=== PATIENT | female | born 1965 | race Caucasian/White ===

== ENCOUNTER 2019-09-01 11:24 | Emergency (ER) | payer MEDICAID, SELFPAY ==
[2019-09-01 11:25] VITALS: BP 142/69; PULSE 92; RESP 17; TEMP 36.7; O2SAT 97; BMI 36.0
--- NOTE | 2019-09-01 11:56 | ED.VISSUMM ---
- ER Visit Summary Date of Service: 09/01/19 Chief Complaint: Back pain History of Present Illness: The patient is a 53 F who just moved here from [place]. She reports that one week ago she was playing with her grandkids and that developed low back pain. She describes it as a sharp pain is 10 out of 10 severity. Is worsened by movement. Is relieved by heating pad and Tylenol. She states it radiates down the side of her left leg to her foot. She denies any numbness, tingling, or weakness. No problems with her bowels or bladder. No groin numbness. She denies any trauma where she may have broken anything. No fall or MVA. Patient reports that she burned her right breast 6 days ago. She reports that she has been using Neosporin and a dressing to this. She denies any pain to this. Physical Examination: Vitals: Stable. Afebrile. General: A&O x 3. NAD. Cardiovascular exam: Regular rate and rhythm, no murmur, rub or gallop. Respiratory exam: Clear to auscultation bilaterally. No wheezes or stridor. Abdominal exam: Soft, nontender, nondistended, normal bowel sounds. No peritoneal signs. Back: Diffuse moderate tenderness to palpation over the lumbar spine and the paraspinous musculature in the lumbar region. No point tenderness. Negative straight leg bilaterally. 5/5 DF, PF, EHL bilaterally. Normal sensation to light touch throughout. Extremity: No clubbing, cyanosis, or edema. Emergency Department Course and Treatment: An OARRS report was obtained which was negative. She was given Hutchinson here. Treatment Plan: Patient be discharged prescription for 10 Hutchinson. She is instructed on symptomatic care. Follow-up with Dr. Guillermo in 1 week for another exam. Return to the emergency department for any worsening symptoms. Disposition: To home in improved and stable condition. Impression: 1 1. Low back pain. 2. Ulcer right breast. This note was generated with [employer] dictation software. It may contain incorrect words, spelling, and punctuation that were not noted in review of the chart prior to signing ED Disposition - Plan for ED Patient: Disposition: Home or Assisted Living Instructions: BACK PAIN (Acute or Chronic) Prescriptions: Hydrocodone Bitart/Apap 5-325 [Hutchinson 5MG-325MG] 1 tab PO Q4H PRN PRN 2 Days #10 tab PRN Reason: Pain Prescription Printed Referrals: Dhara Guillermo MD [STAFF PHYSICIAN] - 1 Week if not improving
[2019-09-01] MEDS: HYDROcodone Bitartrate/Apap 5/325 Tablet PO (12:22)
[2019-09-01 12:26] VITALS: BP 118/67; PULSE 82; RESP 16; O2SAT 97
== END 2019-09-01 12:27 | disposition home or self-care (01) ==
LOC: ED 12:13
PROVIDERS: Emergency Provider Emergency Medicine
DX: M54.5 Low back pain (principal); N61.1 Abscess of the breast and nipple; T21.01XA Burn of unspecified degree of chest wall, initial encounter; X08.8XXA Exposure to other specified smoke, fire and flames, initial encounter; Y93.9 Activity, unspecified; Y92.9 Unspecified place or not applicable; J44.9 Chronic obstructive pulmonary disease, unspecified; E11.40 Type 2 diabetes mellitus with diabetic neuropathy, unspecified; Z79.84 Long term (current) use of oral hypoglycemic drugs; F17.200 Nicotine dependence, unspecified, uncomplicated
CPT/HCPCS: 99283

== ENCOUNTER 2019-09-24 23:18 | Emergency (ER) | payer MEDICAID, SELFPAY ==
[2019-09-24 23:19] VITALS: BP 90/60; PULSE 105; RESP 18; TEMP 37; O2SAT 94; BMI 30.9
[2019-09-25 00:06] VITALS: BP 130/108; PULSE 122; RESP 20; O2SAT 95
--- NOTE | 2019-09-25 00:13 | RAD_ITS ---
HISTORY: CONFUSION, FALLS, C/O PAIN ENTIRE BODY ADDITIONAL HISTORY: None provided. TECHNIQUE: Frontal chest radiograph. Number of images including paperwork: 1 COMPARISON: None FINDINGS: LUNGS AND PLEURA: Bibasilar airspace opacities, slightly greater on the right than the left with some linear appearance on the left. CARDIAC SILHOUETTE: Upper normal size. MEDIASTINUM AND RUBINA: Aortic calcification. UPPER ABDOMEN: Unremarkable. SKELETON AND SOFT TISSUES: No acute findings. Degenerative changes. OTHER DEVICES AND HARDWARE: None. RAD/Chest 1 View IMPRESSION: Bibasilar atelectasis versus infiltrates. at 0040 Reported and signed by: Sandra Koenig MD Electronically Signed: Sandra Koenig MD at 0:40 EST Tel , Service support ,
--- NOTE | 2019-09-25 00:13 | CT_ITS ---
HISTORY: CONFUSION, PAIN ALL OVER, FREQUENT FALLS TODAY, HX BRAIN TUMOR WITH SX IN THE PAST ADDITIONAL HISTORY: None provided. COMPARISON: None TECHNIQUE: Axial, coronal and sagittal CT images were obtained of the brain without intravenous contrast. Number of images including paperwork: 255. A radiation dose optimization technique was used for this scan. FINDINGS: BRAIN PARENCHYMA: No acute hemorrhage or mass. No definite acute infarct; MRI more sensitive. EXTRA-AXIAL SPACES: No acute hemorrhage. VENTRICULAR SYSTEM: No hydrocephalus. PARANASAL SINUSES AND MASTOIDS: No air-fluid level in the imaged extent. ORBITS: Unremarkable imaged extent. SKELETON AND SOFT TISSUES: Remote craniotomy changes near the vertex. ASPECTS score: Not applicable. CT/Brain/Head without Contrast IMPRESSION: No acute intracranial abnormality. Individualized dose optimization techniques were used for this CT. at 0053 Reported and signed by: Sandra Koenig MD Electronically Signed: Sandra Koenig MD at 0:53 EST Tel , Service support ,
--- NOTE | 2019-09-25 00:13 | EKG12_ITS ---
Test Reason : DYSRYTHMIA Blood Pressure : / mmHG Vent. Rate : 098 BPM Atrial Rate : 098 BPM P-R Int : 152 ms QRS Dur : 066 ms QT Int : 382 ms P-R-T Axes : 023 -12 044 degrees QTc Int : 487 ms Normal sinus rhythm Normal ECG Confirmed by TERI MAZA, ANNALEE ([id number]), editorial manager MEREDITH VALENCIA ([id number]) on 09/26/2019 9:48:50 AM Referred By: Breanne Mayberry Confirmed By:ANNALEE WILLIAMSON MD
[2019-09-25 00:31] LABS: Bedside Glucose 157 mg/dL (70-110)
[2019-09-25 00:32] LABS: Absolute Lymphocyte Count 2.62 X10^3/uL (0.83-4.51); Absolute Neutrophil Count 8.7 X10^3/uL (2.0-7.7); Basophil# 0.06 X10^3/uL; Basophil% 0.5 % (0-1); Eosinophil# 0.04 X10^3/uL; Eosinophils% 0.3 % (0-5); Hematocrit 39.7 % (37-47); Hemoglobin 13.9 g/dL (12.0-15.0); Lymphocyte # 2.62 X10^3/ul (4.0); Mean Corpuscular Hgb 32.3 pg (27.0-32.0); Mean Corpuscular Volume 92.1 fL (81-99); Mean Platelet Vol. 10.7 fl (6.2-12.0); Monocyte# 1.02 X10^3/uL; Monocyte% 8.2 % (0-10); NRBC Flagged by Analyzer 0 % (0-5); Neutrophil # 8.67 X10^3/uL (2.7-7.7); Neutrophil % 69.3 % (47-70); Platelet Count 157 K/mm3 (150-450); RBC Distribution Width CV 12.8 % (11.6-14.6); RBC Distribution Width SD 43.5 fl (35.1-43.9); Red Blood Count 4.31 M/mm3 (4.2-5.4); White Blood Count 12.5 K/mm3 (4.4-11.0)
[2019-09-25 00:35] LABS: International Normalized Ratio 1.2; Prothrombin Time (Protime)PT. 15.4 SECONDS (11.7-14.9)
--- NOTE | 2019-09-25 00:35 | ED.RN ---
took 50 of seroquel and 50 of benadryl at approx 2100
[2019-09-25 00:36] LABS: Partial Thromboplast Time 37.7 Seconds (24.1-36.2)
--- NOTE | 2019-09-25 00:37 | ED.VIS.GEN ---
History of Present Illness Chief Complaint: Other, Pain/Inj Informant: Patient Narrative: Stated over the last 2 days she has had diffuse body pain. She has been having cramping in her feet. Sometimes she gets that and takes gabapentin for. She denies any respiratory symptoms. She stated her whole body feels sore. She stated that her legs cramped up tonight. She had 3 falls. She did not get injured. No sick contacts. No respiratory symptoms. No home treatment. Denies hitting her head. Past Medical History - Allergies and Home Meds Allergies/Adverse Reactions: Allergies No Known Allergies Allergy (Verified 09/24/19 23:19) Primary Care Physician: Michael Camargo [Primary Care Provider] - Prior records reviewed: Yes Past Medical History: - - Reviewed Surgical History: noncontributory Lives: With Family Smoking Status: Current every day smoker Alcohol: None Drugs: None Review of Systems General: Denies: Chills, Fever, Sweats Eyes: Denies: Visual changes - bilaterally, Diplopia ENT: Denies: Rhinorrhea, Sore throat Cardiovascular: Denies: Chest pain, Palpitations Respiratory: Denies: Dyspnea, Cough, Dyspnea on exertion Gastrointestinal: Denies: Abdominal pain, Nausea, Vomiting, Diarrhea, Melena, Hematochezia Genitourinary: Denies: Dysuria, Hematuria, Frequency Musculoskeletal: Reports: Myalgias. Denies: Back pain, Extremity Pain Skin: Denies: Rash, Wounds Neurological: Denies: Headache, Weakness, Numbness Physical Exam Vital Signs/Narrative: Vital Signs Temp Pulse Resp BP Pulse Ox 09/25/19 00:06 122 H 20 H 130/108 H 95 09/24/19 23:19 98.6 F 105 H 18 90/60 94 General: Well nourished, Well developed, No Acute Distress Head: Normocephalic, Atraumatic Eyes: Perrl, EOMI ENT: Moist mucous membranes, No rhinorrhea Neck: Supple, Nontender Cardiovascular: Regular rate, Regular rhythm, No murmurs Respiratory: No distress, CTA bilaterally, Chest nontender Abdomen: Soft, Nontender, Nondistended, Normal bowel sounds Back: Nontender, Normal Inspection Extremities: No edema, Tenderness - Diffuse body tenderness with mild cramping to her bilateral feet. Negative for: Nontender Skin: Normal color, No rash Neurological: Alert, Oriented x3, Cranial nerves II-XII grossly intact, Normal Strength, Normal Sensation Psychological: Normal affect, Normal Mood Diagnostic/Tx/Re-eval - Medical Decision Making She given IV fluids and morphine for her symptoms. Lab work and CT head obtained.. Chest x-ray shows bibasilar atelectasis. CT head negative. Lab work shows a slight leukocytosis without left shift. Patient has slight bump in her creatinine which I suspect is from dehydration. Patient felt much better after treatment. Pain is resolved. Ambulate to the bathroom without problem. Urine shows a contaminated specimen without infection. 0 bacteria noted. Patient felt much better at this time I feel she can be discharged home. I do not feel she needs antibiotics. Will be discharged with ibuprofen. ED Disposition - Plan for ED Patient: Disposition: Home or Assisted Living Diagnosis: Myalgia Instructions: BACK PAIN (Acute or Chronic) Prescriptions: Ibuprofen 600 mg PO TID #30 tab Prescription Printed Referrals: Michael Camargo [Primary Care Provider] -
[2019-09-25 00:38] VITALS: BP 143/76; PULSE 87; RESP 17; O2SAT 99
[2019-09-25 00:42] LABS: Anion Gap 8 (5-15); BUN 12 mg/dL (7-18); BUN/Creat Ratio 8.3 RATIO (10-20); Calcium,Total 8.9 mg/dL (8.5-10.1); Chloride 108 mmol/L (98-107); Creatinine, Serum 1.45 mg/dL (0.55-1.02); EST Glomerular Filtration Rate 40 mL/min (>60); Est Glom Filt Rate - Afr Amer 49 mL/min (>60); Estimated Creatinine Clearance 39.64 ml/min; Glucose 172 mg/dL (74-106); Potassium 3.4 mmol/L (3.5-5.1); Sodium Level 139 mmol/L (136-145)
--- NOTE | 2019-09-25 00:42 | ED.RN ---
NO OLD EKG
[2019-09-25 00:57] LABS: Lactic Acid 1.9 mmol/L (0.4-1.9)
[2019-09-25 01:01] VITALS: BP 136/99; PULSE 101; RESP 15; O2SAT 95
[2019-09-25] MEDS: 0.9% Normal Saline 1,000 ML 50 ML IV (01:01)
[2019-09-25] MEDS: Morphine 4 MG/ML Syringe IV (01:01)
[2019-09-25 01:14] LABS: Alcohol, Blood (Medical)-Serum < 3.0 mg/dL
[2019-09-25 01:32] VITALS: BP 143/99; PULSE 97; RESP 12; O2SAT 97
[2019-09-25 01:55] LABS: Bacteria 0 SEEN /hpf (None Seen)
[2019-09-25 01:56] LABS: Color, Urine Amber (Yellow); Glucose, Dipstick Normal (Normal); Ketone-Dipstick 5 mg/dl (Negative); Leukocyte Esterase-Dipstick 100 /ul (Negative); Nitrite-Dipstick Negative (Negative); Occult Blood-Urine 25 /ul (Negative); Protein-Dipstick 100 mg/dl (Negative); Specific Gravity, Urine 1.015 (1.002-1.030); Urine Clarity Sl. Cloudy (Clear); Urine Urobilinogen 8 mg/dl (Normal)
[2019-09-25 01:57] LABS: Urine Bilirubin Dipstick 3 mg/dL (Negative)
[2019-09-25 02:04] LABS: Hyaline Cast 25-50 SEEN /lpf (0-5); Mucous, Urine 2+ /hpf (<or=2+); Red Blood Cells-Urine 5-10 SEEN /hpf (0-5); Squamous Epithelial Cells - UA 25-50 SEEN /hpf (5-10); White Blood Cells 10-25 SEEN /hpf (0-5)
[2019-09-25 02:11] VITALS: RESP 17
[2019-09-25 02:26] VITALS: BP 96/61; PULSE 61; RESP 17; O2SAT 96
== END 2019-09-25 02:27 | disposition home or self-care (01) ==
PROVIDERS: Emergency Provider Emergency Medicine
DX: M79.10 Myalgia, unspecified site (principal); R25.2 Cramp and spasm; R29.6 Repeated falls; F17.200 Nicotine dependence, unspecified, uncomplicated; Z79.899 Other long term (current) drug therapy
CPT/HCPCS: 70450; 71045; 80048; 80320; 81001; 82962; 83605; 84484; 85025; 85610; 85730; 93005; 99285; J7030; A4216; G0480

== ENCOUNTER 2019-09-25 16:28 | Inpatient (IN) | payer MEDICAID, SELFPAY ==
[2019-09-24 23:19] VITALS: BMI 30.9
[2019-09-25 16:29] VITALS: BP 104/79; PULSE 113; RESP 20; TEMP 38.6; O2SAT 95; BMI 37.1
--- NOTE | 2019-09-25 16:42 | CT_ITS ---
STUDY: CT BRAIN WITHOUT CONTRAST REASON FOR EXAM: Female, 53 years old. FALL, and quot; PAIN ALL OVER and quot; PER PT, SEEN IN ER EARLIER TODAY AND CT BRAIN RADIATION DOSAGE (If Supplied By Facility): CTDIvol = ( 44.99 ) mGy, DLP = ( 829.85 ) mGycm TECHNIQUE: Transaxial CT imaging of the brain was performed without administration of intravenous contrast material. Individualized dose optimization techniques were used for this CT. COMPARISON: No relevant priors. FINDINGS: Normal soft tissue structures. Normal calvarium. Normal size ventricles and extra-axial spaces for the patient''s age. Normal white matter tracts of the cerebral hemispheres. Normal basal ganglia and thalami. Normal brainstem. Normal cerebellum. There is no intracranial hemorrhage. There are no findings of an acute ischemic infarction. Normal visualized paranasal sinuses. CT/Brain/Head without Contrast IMPRESSION: No acute intracranial abnormalities Electronically Signed: Roderick Holt MD at 18:05 EST , Service support ,
--- NOTE | 2019-09-25 16:43 | RAD_ITS ---
STUDY: X-RAY CHEST REASON FOR EXAM: Female, 53 years old. FALL, FEVER TECHNIQUE: PA and lateral views of the chest. COMPARISON: Earlier today FINDINGS: EKG leads overlie the chest Lungs are expanded. Left lung is clear. Right lung shows increased opacification the right lung base suggesting worsening infiltrate or atelectasis. There is no demonstrated pleural abnormality. Normal size heart. Normal mediastinum and chas. Normal visualized pulmonary arteries. There is atherosclerotic calcification of the aortic arch with tortuosity. Normal visualized thoracic spine. Normal visualized ribs, clavicles, and shoulders. There is no demonstrated abnormality of the visualized soft tissue structures of the upper abdomen. RAD/Chest PA and Lateral IMPRESSION: Increased opacification the right lung base since the previous study suggests worsening atelectasis or infiltrate. Follow-up recommended to assure resolution Electronically Signed: Roderick Holt MD at 18:07 EST , Service support ,
--- NOTE | 2019-09-25 16:44 | ED.DCSUM_ITS ---
- ER Visit Summary Date of Service: 09/25/19 Chief Complaint: Fall History of Present Illness: The patient is a 53 F patient states she fell again today. Patient states she has had 4 falls since yesterday. Patient states she was getting up to get some water when she fell. Patient states she was unable to get up after the fall and laid on her floor all day. Patient states she has pain everywhere. Patient describes it as sharp and stabbing. Patient states she also has spasms. Patient denies any paresthesias. Patient denies any loss of consciousness. Patient was seen here last night and received IV fluids and analgesics. Patient felt better and was able to ambulate prior to going home. Patient states she was diagnosed with a viral infection. Physical Examination: Vital signs are stable except for mild tachycardia of 113. Patient is febrile here with a temperature of 101.5. Oral mucosa is pink and moist. Neck is supple. Trachea is midline. There is no JVD. Heart was regular rate and rhythm. Lungs are somewhat diminished and equal bilaterally. Abdomen is soft. Bowel sounds are normal. There is no tenderness. Cranial nerves II through XII are grossly intact. There are no focal motor or sensory deficits noted. Test Results: PA and lateral chest x-ray shows opacification of the right lung base that is worse compared to previous x-ray. CT scan of the brain was obtained. There is no acute intracranial bleeding. CBC shows a white blood cell count of 12.6. Total bilirubin was slightly elevated at 1.6. Blood cultures were obtained. Lactate was ordered. Emergency Department Course and Treatment: Patient was given Tylenol here for her fever. Patient was given a dose of morphine for her pain. Patient was started on Levaquin. Case was discussed with Dr. Mayberry. She will admit the patient to her service. Patient and family understood and were agreeable with the plan. All questions were answered. Disposition: Admit to hospital Impression: 1. Pneumonia 2. Frequent falls 3. Sepsis This note was generated with [employer] software. It may contain incorrect words, spelling, and punctuation that were not noted in review of the chart prior to signing ED Disposition - Plan for ED Patient: Disposition: Acute Care [facility]
[2019-09-25 16:52] VITALS: BP 104/79; PULSE 102; RESP 22; O2SAT 96
[2019-09-25] MEDS: Acetaminophen 500 MG Tablet 1000 MG PO (17:01)
[2019-09-25] MEDS: 0.9% Normal Saline 1,000 ML 1000 ML IV (17:11)
[2019-09-25] MEDS: Morphine 4 MG/ML Syringe IV (17:12)
[2019-09-25 17:31] LABS: Absolute Lymphocyte Count 0.87 X10^3/uL (0.83-4.51); Absolute Neutrophil Count 10.7 X10^3/uL (2.0-7.7); Basophil# 0.04 X10^3/uL; Basophil% 0.3 % (0-1); Eosinophil# 0.01 X10^3/uL; Eosinophils% 0.1 % (0-5); Hemoglobin 12.6 g/dL (12.0-15.0); Lymphocyte # 0.87 X10^3/ul (4.0); Lymphocyte % 6.9 % (19-41); Mean Corp Hgb Conc 33.2 g/dL (32-36); Mean Corpuscular Volume 93.4 fL (81-99); Mean Platelet Vol. 10.7 fl (6.2-12.0); Monocyte# 0.96 X10^3/uL; Monocyte% 7.6 % (0-10); NRBC Flagged by Analyzer 0 % (0-5); Neutrophil # 10.68 X10^3/uL (2.7-7.7); Neutrophil % 84.5 % (47-70); Platelet Count 131 K/mm3 (150-450); RBC Distribution Width CV 12.9 % (11.6-14.6); RBC Distribution Width SD 44.4 fl (35.1-43.9); Red Blood Count 4.07 M/mm3 (4.2-5.4); White Blood Count 12.6 K/mm3 (4.4-11.0)
[2019-09-25 17:44] LABS: ALB/GLOB Ratio 1.1 RATIO (0.9-2.4); AST(SGOT) 28 U/L (15-37); Alanine Aminotransfer ALT/SGPT 17 U/L (13-56); Albumin, Serum 3.6 g/dL (3.2-5.0); Alkaline Phosphatase 74 U/L (45-117); Anion Gap 8 (5-15); BUN 14 mg/dL (7-18); BUN/Creat Ratio 14.4 RATIO (10-20); Calcium,Total 8.3 mg/dL (8.5-10.1); Chloride 111 mmol/L (98-107); Creatinine, Serum 0.97 mg/dL (0.55-1.02); EST Glomerular Filtration Rate 64 mL/min (>60); Est Glom Filt Rate - Afr Amer 77 mL/min (>60); Estimated Creatinine Clearance 59.25 ml/min; Globulin 3.4 g/dL (2.2-4.2); Glucose 122 mg/dL (74-106); Potassium 3.5 mmol/L (3.5-5.1); Sodium Level 141 mmol/L (136-145)
[2019-09-25 18:28] VITALS: BP 112/73; PULSE 77; RESP 16; O2SAT 100
[2019-09-25 18:41] LABS: Red Blood Cells-Urine 0 SEEN /hpf (0-5)
[2019-09-25] MEDS: levoFLOXacin IV 750 MG/150 ML BAG 100 MG IV (18:43)
[2019-09-25 18:45] VITALS: BP 129/75; PULSE 75; RESP 18; O2SAT 99
--- NOTE | 2019-09-25 18:51 | HP.PCM_ITS ---
Problem List (1) Sepsis Status: Acute Qualifiers: Sepsis type: sepsis due to unspecified organism Severe sepsis acute organ dysfunction type: unspecified Severe sepsis shock status: without septic shock (2) Pneumonia Status: Acute Qualifiers: Pneumonia type: due to unspecified organism Laterality: right Lung location: lower lobe of lung Qualified Code(s): J18.9 - Pneumonia, unspecified organism (3) Frequent falls Status: Acute (4) Tobacco use Status: Chronic (5) Anxiety and depression Status: Chronic (6) History of brain tumor Status: Chronic History of Present Illness Date of Admission: 09/25/19 Chief Complaint: Frequent falls, fatigue, dyspnea, cough, fever, N/V The patient is a 53 y/o F w/ PMHx: Tobacco use, ? 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 ED on 09/25/19 with history of progressively worsening fatigue, malaise, poor intake w ith nausea and emesis as well as ongoing productive cough of yellow/green sputum with occasional dyspnea, worse when she exerts herself with no specific fevers or chills but noted upon ED presentation with recent history of fall x2 over the last 24 hours initially presenting to the ED early in the morning however clinically improved following hydration and requested discharge to home who now returns again following recent fall with no loss of consciousness nor head trauma. Work-up in the ED included T101.5, heart rate 133, BP 104/79, respiratory rate 20, 95% on room air, CBC with WBC 12.6, hemo-12.6, platelet 131 with left shift, CMP with chloride 111, glucose 122, total bilirubin 1.6, analysis requested and pending upon evaluation of patient, planned ED physician to request culture x2 while in the ED as well as lactic acid, chest x-ray with increased opacification right lung base suggestive of possible infiltrate, CT head with no acute intracranial findings. In the ED patient administered normal saline, Levaquin, morphine, Tylenol. In the ED patient very tearful she does not want to be admitted secondary to need to take care of her dog and upcoming visit with her daughter who from description may be in rehab. Past Medical History Past Medical History (Chronic Problems): Chronic Problems Tobacco use (Chronic) Anxiety and depression (Chronic) History of brain tumor (Chronic) Allergies No Known Allergies Allergy (Verified 09/25/19 16:28) Home Medications: Ambulatory Orders Medication Instructions Recorded Gabapentin [Neurontin] 800 mg PO BID 09/01/19 Metformin HCl [Glucophage Xr] 500 mg PO DAILY 09/01/19 Quetiapine Fumarate [Seroquel] 50 mg PO QHS 09/01/19 Diphenhydramine HCl [Benadryl 25 mg PO DAILY PRN PRN 09/25/19 Allergy] Ibuprofen 600 mg PO TID #30 tab 09/25/19 Sumatriptan Succinate [Imitrex] 100 mg PO .X1 PRN 09/25/19 Venlafaxine HCl [Venlafaxine HCl 75 mg PO DAILY 09/25/19 ER] Surgical History: - - Brain surgery as noted x3, hysterectomy, bilateral carpal tunnel surgery, left upper extremity elbow surgery, tonsillectomy, umbilical hernia repair, cholecystectomy, appendectomy. 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 Notes she does not tolerate patches well secondary to skin irritability. Tobacco Use: Cigarettes Alcohol: None Drugs: None - *Family History Maternal History Items: - - Patient has a paternal family history of heart disease, CHF. Paternal History Items: - - Patient notes a paternal family history of diabetes, heart disease, coronary disease. Review of Systems Constitutional: Reports: Anorexia, Malaise, Weakness, Fatigue. Denies: Chills, Fever, Weight Change HEENT: Reports: Nasal Congestion, Sinus Congestion, Sinus Drainage, Sore Throat. Denies: Head Aches Cardiovascular: Denies: Chest Pain, Palpitations Respiratory: Reports: Cough, Shortness of Breath, Shortness of breath at rest, Shortness of breath upon exertion, Sputum production Gastrointestinal: Reports: Nausea, Vomiting. Denies: Abdominal Pain Genitourinary: Denies: Dysuria Musculoskeletal: Reports: Back Pain, Joint Pain. Denies: Joint Tenderness Skin: Denies: Rash, Wounds Neurological: Denies: Numbness, Tingling, Focal weakness Psychiatric: Reports: Anxiety, Depression. Denies: Homicidal Ideations, Suicidal Ideations Hematologic/ Lymphatic: Reports: Anemia. Denies: Easy Bruising, Easy Bleeding VTE Information - Inpt Only VTE Present on Admission: No VTE Mechan Device Prophylaxis: SCD's VTE Pharm Prophylaxis ordered?: Yes Patient Problems: Active and Suspected Problems Sepsis (Acute) Pneumonia (Acute) Frequent falls (Acute) Subjective: Seated upright in the ED bed, fatigued appearance, hoarse voice, occasional coughing during examination. Objective: Physical Examination: General: awake, alert, oriented x 3 and cooperative, seated upright in the ED bed, slow speech which is chronic she notes, fatigued and ill-appearing, very hoarse voice. Skin: normal color, turgor, no icterus, cyanosis. HEENT: AT/NC, EOMI, PERRLA, dry MM, posterior OP erythema, no exudate, no carotid bruits or JVD noted. Lungs: Diminished breath sounds throughout, greater bilateral bases, right greater than left, mildly rhonchorous right base and right midlung region posteriorly, no rales or wheezing, mildly decreased effort. Heart: Improved, less tachycardic with regular rhythm; no gallop, rub audible. Abdomen: soft, BS, NTTP, ND, normal BS, no HSM. Extremities: no cyanosis, clubbing, or edema. Neurological: patient awake, alert, oriented x 3; cognitive function intact; pupils equally reactive to light and accomodation; cranial nerves II-XII grossly normal, moving all 4 extremities, no focal deficits, strength severely globally [place] secondary to acute presentation. Psychiatric: affect appears fatigued, tearful during discussions as she did not want to necessarily be admitted but willing to stay, no acute evidence of anxiety feelings. - Physical Exam Vitals/I&O's: Vital Signs Temp Pulse Resp BP Pulse Ox 101.5 F H 75 18 129/75 H 99 09/25/19 16:29 09/25/19 18:45 09/25/19 18:45 09/25/19 18:45 09/25/19 18:45 Oxygen Delivery Method Room Air Weight: 216 lb 4.375 oz Body Mass Index (BMI) 37.1 Finger Stick Blood Glucose 157 Intake and Output for Last 24 Hours 09/23/19 09/24/19 09/25/19 23:59 23:59 23:59 Intake Total 1000 / 1000 Balance 1000 / 1000 Laboratory Results 09/25/19 17:20: WBC 12.6 H, RBC 4.07 L, Hgb 12.6, Hct 38.0, MCV 93.4, MCH 31.0, MCHC 33.2, RDW Std Deviation 44.4 H, RDW Coeff of [place] 12.9, Plt Count 131 L, MPV 10.7, Immature Gran % (Auto) 0.600, Neut % (Auto) 84.5 H, Lymph % (Auto) 6.9 L, [place] % (Auto) 7.6, Eos % (Auto) 0.1, Baso % (Auto) 0.3, Absolute Neuts (auto) 10.7 H, Absolute Lymphs (auto) 0.87, Nucleated RBC % 0 09/25/19 17:20: Sodium 141, Potassium 3.5, Chloride 111 H, Carbon Dioxide 22.0, Anion Gap 8, BUN 14, Creatinine 0.97, Estim Creat Clear Calc 59.25, Est GFR (MDRD) Af Amer 77, Est GFR (MDRD) Non-Af 64, BUN/Creatinine Ratio 14.4, Glucose 122 H, Calcium 8.3 L, Total Bilirubin 1.60 H, AST 28, ALT 17, Alkaline Phosphatase 74, Total Protein 7.0, Albumin 3.6, Globulin 3.4, Albumin/Globulin Ratio 1.1 09/25/19 18:35: Urine Color Pending, Urine Clarity Pending, Urine pH Pending, Ur Specific [place] Pending, Urine Protein Pending, Urine Glucose (UA) Pending, Urine Ketones Pending, Urine Occult Blood Pending, Urine Nitrite Pending, Urine Bilirubin Pending, Urine Urobilinogen Pending, Ur Leukocyte Esterase Pending, Urine RBC Pending, Urine WBC Pending, Ur Squamous Epith Cells Pending, Urine Bacteria Pending, Urine Mucus Pending Current Medications Levofloxacin (Levaquin Iv) 750 mg in 150 mls @ 100 mls/hr IV X1 ONE Stop: 09/25/19 20:00 Last Admin: 09/25/19 18:43 Dose: 100 mls/hr Documented by: Assessment/Plan All Active Problems Myalgia (Acute) Sepsis (Acute) Pneumonia (Acute) Frequent falls (Acute) The patient is a 53 y/o F w/ PMHx: Tobacco use, ? 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 ED on 09/25/19 with history of progressively worsening fatigue, malaise, poor intake with nausea and emesis as well as ongoing productive cough of yellow/green sputum with occasional dyspnea, worse when she exerts herself with no specific fevers or chills but noted upon ED presentation with recent history of fall x2 over the last 24 hours. 1. Acute sepsis secondary to Community Acquired Pneumonia: Pending lactic acid and blood cultures upon requested evaluation of patient. Will admit to telemetry given stable vital signs, maintain on oxygen with wean as tolerated to room air, continue ATC duonebs, PRN albuterol, maintained on IV Rocephin and Azithromycin, HOB, IS parameters w/ pending sputum cultures, respiratory viral panel and urine antigens. Bld cx x 2 to be obtained in the ED. given history of frequent falls, fatigue, malaise despite age will request PT/OT/case management consultation for discharge planning. 2. Suspected Chronic COPD/Asthma: Patient needs chronic use intermittently of an inhaler, suspect albuterol, unclear if any past COPD or asthmatic history, ATC duonebs as noted above, PRN albuterol, HOB, IS parameters. 3. Diabetes mellitus type II: Hold oral home regimen, trial diet clears given nausea and emesis and advance diet as tolerated to ADA, in interim will maintain on every 6 hours accu checks w/ ISS. 4. Anxiety and depression: We will continue patient home Seroquel, venlafaxine regimen. 5. Chronic neuropathy unclear type: We will continue patient home Neurontin. 6. Obesity: Weight loss and lifestyle changes encouraged. 7. History of brain tumor unclear type: Status post resection x3 she notes, following this she has comprehensive issues and is slow of speech chronically. 8. Tobacco Abuse: Encouraged cessation, inpatient consultation per RT, NR if desired. 9. DVT prophylaxis: SCDs, Lovenox. Code Visit Inpatient E&M: 66401 Init Hosp L3
[2019-09-25 19:12] VITALS: BMI 37.1
[2019-09-25 19:30] LABS: Color, Urine Amber (Yellow); Glucose, Dipstick Normal (Normal); Ketone-Dipstick 50 mg/dl (Negative); Leukocyte Esterase-Dipstick 25 /ul (Negative); Nitrite-Dipstick Negative (Negative); Occult Blood-Urine 10 /ul (Negative); Protein-Dipstick 30 mg/dl (Negative); Specific Gravity, Urine 1.015 (1.002-1.030); Urine Clarity Sl. Cloudy (Clear); Urine Urobilinogen 4 mg/dl (Normal)
[2019-09-25 19:33] LABS: Urine Bilirubin Dipstick 1 mg/dL (Negative)
[2019-09-25 19:49] LABS: Lactic Acid 0.9 mmol/L (0.4-1.9)
[2019-09-25 19:54] LABS: Mucous, Urine 3+ /hpf (<or=2+)
[2019-09-25 19:55] VITALS: BMI 36.0
[2019-09-25 19:55] LABS: Bacteria 2+ /hpf (None Seen); Squamous Epithelial Cells - UA 0-5 SEEN /hpf (5-10); White Blood Cells 0-5 SEEN /hpf (0-5)
[2019-09-25 19:57] VITALS: BP 121/76; PULSE 91; RESP 20; TEMP 37.1; O2SAT 95
[2019-09-25 20:20] VITALS: O2SAT 99
[2019-09-25] MEDS: 0.9% Saline Lock 10 ML Syringe IV (20:50)
[2019-09-25] MEDS: 0.9% Normal Saline 1,000 ML 999 ML IV (20:53)
[2019-09-25] MEDS: Gabapentin 800 MG Tablet PO (21:03)
[2019-09-25] MEDS: Famotidine 20 MG Tablet PO (21:03)
[2019-09-25] MEDS: QUEtiapine 25 MG Tablet 50 MG PO (21:03)
[2019-09-25] MEDS: Ensure Clear 120 ML Liquid PO (22:14)
[2019-09-25] MEDS: Acetaminophen 325 MG Tablet 650 MG PO (22:22)
[2019-09-25 23:51] LABS: Bedside Glucose 75 mg/dL (70-110)
[2019-09-26] VITALS (11 sets, daily range): BP systolic 115–146; BP diastolic 66–77; PULSE 81–104; RESP 20–36; TEMP 36.2–38.9; O2SAT 91–96
[2019-09-26] MEDS: 0.9% Normal Saline 1,000 ML 125 ML IV ×3 (00:16→16:00)
[2019-09-26] MEDS: Ipratropium/Albuterol Sulfate 3 ML AMPUL.NEB INHALATION ×4 (07:02→18:53)
--- NOTE | 2019-09-26 07:27 | NURSING ---
cps increased o2 to 3l as pt was sating only 86% on 2l. at 3l pt 90-91% and rr 30. will monitor with vsa freq
[2019-09-26] MEDS: Acetaminophen 325 MG Tablet 650 MG PO (07:52)
[2019-09-26] MEDS: BENZOCAINE/MENTHOL 1 LOZENGE MUCOUS MEM (07:53)
[2019-09-26 08:06] LABS: Absolute Lymphocyte Count 1.71 X10^3/uL (0.83-4.51); Absolute Neutrophil Count 8.1 X10^3/uL (2.0-7.7); Basophil# 0.02 X10^3/uL; Basophil% 0.2 % (0-1); Eosinophil# 0.14 X10^3/uL; Eosinophils% 1.3 % (0-5); Hemoglobin 13.3 g/dL (12.0-15.0); Lymphocyte # 1.71 X10^3/ul (4.0); Mean Corp Hgb Conc 33.3 g/dL (32-36); Mean Corpuscular Hgb 31.6 pg (27.0-32.0); Mean Platelet Vol. 11.8 fl (6.2-12.0); Monocyte# 0.66 X10^3/uL; Monocyte% 6.2 % (0-10); NRBC Flagged by Analyzer 0 % (0-5); Neutrophil # 8.08 X10^3/uL (2.7-7.7); Neutrophil % 75.7 % (47-70); Platelet Count 112 K/mm3 (150-450); RBC Distribution Width CV 12.7 % (11.6-14.6); RBC Distribution Width SD 44.3 fl (35.1-43.9); Red Blood Count 4.21 M/mm3 (4.2-5.4); White Blood Count 10.7 K/mm3 (4.4-11.0)
[2019-09-26 08:52] LABS: ALB/GLOB Ratio 0.8 RATIO (0.9-2.4); AST(SGOT) 34 U/L (15-37); Alanine Aminotransfer ALT/SGPT 20 U/L (13-56); Albumin, Serum 3.3 g/dL (3.2-5.0); Alkaline Phosphatase 85 U/L (45-117); Anion Gap 6 (5-15); BUN 9 mg/dL (7-18); BUN/Creat Ratio 14.1 RATIO (10-20); Calcium,Total 8.2 mg/dL (8.5-10.1); Chloride 114 mmol/L (98-107); Creatinine, Serum 0.64 mg/dL (0.55-1.02); EST Glomerular Filtration Rate 104 mL/min (>60); Est Glom Filt Rate - Afr Amer 126 mL/min (>60); Globulin 3.9 g/dL (2.2-4.2); Glucose 81 mg/dL (74-106); Potassium 3.6 mmol/L (3.5-5.1); Protein, Total 7.2 g/dL (6.4-8.2); Sodium Level 143 mmol/L (136-145)
[2019-09-26] MEDS: Venlafaxine XR 75 MG Capsule PO (09:34)
[2019-09-26] MEDS: Enoxaparin 40 MG/0.4 ML Syringe SC (09:34)
[2019-09-26] MEDS: Famotidine 20 MG Tablet PO ×2 (09:34→21:14)
[2019-09-26] MEDS: Gabapentin 800 MG Tablet PO ×2 (09:34→21:15)
[2019-09-26] MEDS: Ensure Clear 120 ML Liquid PO ×2 (09:37→14:31)
[2019-09-26] MEDS: Morphine 2 MG/ML Syringe IV (09:52)
--- NOTE | 2019-09-26 12:25 | CASEMGMT ---
RN KEMAR GRAVEL WEIGHER CM to room to meet with patient for initial transition planning/care coordination assessment. RN KEMAR introduced self and role at [facility]. Pt voices understanding and consents to assessment at this time. Pt resting in bed in no distress at this time. Pt is A/O at this time and answers all questions appropriately. Care providers, pharmacy, and demographics verified/updated at this time. PCP: ZIAN Loomis, @ [facility] in [place]. Pt states wishes to get new PCP. Given list of local PCP's. Pt is agreeable to staying with current PCP and PA for now so they can follow her for HHC, until she can get established with new PCP. Preferred Pharmacy: [facility] Insurance: [employer] Prescription Benefit: Yes Living Will/HPOA: does not have LW or HCPOA . Interested in more information and would like to talk to GREGOR to complete paperwork. Made aware if SW is unable to see her prior to discharge, that she can make an appt as an out-pt with GREGOR. Given Aqu[employer] Coordinator Rac card with phone number to call for appt. Voices understanding. GREGOR Hernandez, made aware pt would like to complete AD paperwork. LNOK: 2 daughters: Annabella and Yoana. Father. Living Arrangements: Lives alone in an apt. States she is able to bath and dress herself but it has been becoming increasingly difficult since becoming ill. States difficulty with home mgmt tasks. States her daughter is starting to help her with doctor appts and home tasks. States her daughter just recently signed Transportation: Pt's father provides transportation. Denies transportation concerns. DME: [facility] has the following DME: rails/grab bars, hand held shower, medical alert. [facility] could use shower chair and walker. Given list of local DME companies for pt to select her preference. HHC/SNF: No hx of SNF. States history of HHC after brain surgery. States would like HHC when she returns home. Given list of HHC agencies for pt to select her preference. Pt wishes to return home with [facility] and [facility] has no concerns with going home at time of discharge. She states her daughter, Yoana, plans to come stay with her until she gets better/stronger. She states Yoana does not work and will be available to help her as long as needed. CM to follow for any additional discharge needs. Pt instructed to ask for CM if any additional needs arise. Pt voices understanding. PLAN: Home w/support of family and HHC. RN CM to obtain script for WW and shower chair. Svitlana ROMERO RN CM
--- NOTE | 2019-09-26 13:17 | CASEMGMT ---
Social Work: Met with patient in room to discuss advanced directives as patient voiced interest in completing AD forms. Patient states that she is not ready to complete forms because she has not decided yet who she will be appointing as her DPOAHC. This SW provided patient with AD documents and encouraged patient to contact [facility] [employer] to set up an appointment for advanced care planning once she decides who will be her DPOAHC. SW to continue to follow to assist as needed with Advance Care Planning as needed. ELVIRA Lo
--- NOTE | 2019-09-26 13:29 | CASEMGMT ---
Addendum entered by Natalia Cerna 09/26/19 16:21: 1420: Call placed to [facility]. They have received script for WW and shower chair. They state they will deliver DME to pt's room today. 1300: Call placed back to [facility] to request additional [facility] agencies in network. Per [place] quality audit representative, she recommended RN CM requesting out of plan referral's with out of network agencies. Calls placed back to [facility] and [facility] agencies. They are not agreeable to doing out-of-plan contracts. Call placed back to [facility], [facility]. No answer. 1540: Pt made aware unable to locate [facility] agency able to accept her at this time. Discussed option of OP therapy and pt agreeable to same. OP script obtained from Dr Friedman and given to pt. She was made aware she can take to any OP location of her choice. She voices understanding. [facility] has delivered WW to pt's room. Pt states [facility] staff asked her to call them re: setting up delivery of shower chair. Pt asked this RN CM to call [facility] to let them know either her father or her daughter will be at her home on so shower chair can be delivered. Call placed to [facility] and they were informed of same. Addendum entered by Natalia Cerna 09/26/19 13:45: Call placed to [facility]. They are in network with [place] [employer] [facility] but do not cover [facility] and are unable to accept pt. Original Note: RN CM NOTE: Calls placed to the following [facility] agencies and they are unable to take either d/t they are not in network with [place] [employer] or they do not have the staffing: [facility], [facility], [facility], [facility], [facility], [facility]. Call placed to [place] [facility] insurance co and spoke to a quality audit representative. 3 [facility] agencies that are in network and are in pt's location are as follows: [facility] [facility]: [phone]. Call placed to them and they stated they are unable to take pt. [facility]: [phone]-call placed to them and office is now closed. [facility]: [phone]--call placed to them and office is now closed. Svitlana HOODN RN CM
--- NOTE | 2019-09-26 14:18 | PN_ITS ---
Patient Problems: Active and Suspected Problems Sepsis (Acute) Pneumonia (Acute) Frequent falls (Acute) Reason for Visit: Pneumonia Subjective: Breathing better, but still short of breath. Vitals/I&O's: Vital Signs Temp Pulse Resp BP Pulse Ox 37.2 C 98 24 H 136/70 H 93 09/26/19 12:00 09/26/19 12:00 09/26/19 12:00 09/26/19 12:00 09/26/19 12:00 Oxygen Flow Rate (L/min) 3 Oxygen Delivery Method Nasal Cannula Weight: 95.3 kg Body Mass Index (BMI) 36.0 Finger Stick Blood Glucose 157 Intake and Output for Last 24 Hours 09/24/19 09/25/19 09/26/19 23:59 23:59 23:59 Intake Total 2468.5 / 2468.5 1935.58 / 1935.58 Output Total 300 / 300 1100 / 1100 Balance 2168.5 / 2168.5 835.58 / 835.58 General: Alert, - - diaphoretic HEENT: Atraumatic, Normocephalic Oral: Moist Mucosa, No Gingival or Mucosal Lesions/ Ulcerations Neck: No Nodes, Trachea Midline Lungs: Normal air movement, - - Bibasilar crackles. coarse breath sounds bilaterally. Cardiovascular: Regular rate, Regular Rhythm, Normal S1, Normal S2 Abdomen: Bowel Sounds Present, Soft, Non Tender, Non-Distended, No Hepato- splenomegaly Extremities: No edema, No Calf Tenderness Skin: No rashes, No breakdown Musculoskeletal: No Tenderness to Palpation of Joints or Extremities, No Muscle Wasting Neurological: Muscle tone normal, - - no clonus Psych/Mental Status: Normal Affect, Appropriate Microbiology Past 72 Hours 09/25/19 20:10 Mucosa - Nasopharyngeal Respiratory Panel (PCR) - Final 09/25/19 18:35 Urine, Clean Catch Streptococcus pneumoniae Antigen (M - Final 09/25/19 18:35 Urine, Clean Catch Legionella Antigen - Final Laboratory Results 09/25/19 17:20: WBC 12.6 H, RBC 4.07 L, Hgb 12.6, Hct 38.0, MCV 93.4, MCH 31.0, MCHC 33.2, RDW Std Deviation 44.4 H, RDW Coeff of [place] 12.9, Plt Count 131 L, MPV 10.7, Immature Gran % (Auto) 0.600, Neut % (Auto) 84.5 H, Lymph % (Auto) 6.9 L, [place] % (Auto) 7.6, Eos % (Auto) 0.1, Baso % (Auto) 0.3, Absolute Neuts (auto) 10.7 H, Absolute Lymphs (auto) 0.87, Nucleated RBC % 0 09/25/19 17:20: Sodium 141, Potassium 3.5, Chloride 111 H, Carbon Dioxide 22.0, Anion Gap 8, BUN 14, Creatinine 0.97, Estim Creat Clear Calc 59.25, Est GFR (MDRD) Af Amer 77, Est GFR (MDRD) Non-Af 64, BUN/Creatinine Ratio 14.4, Glucose 122 H, Calcium 8.3 L, Total Bilirubin 1.60 H, AST 28, ALT 17, Alkaline Phosphatase 74, Total Protein 7.0, Albumin 3.6, Globulin 3.4, Albumin/Globulin Ratio 1.1 09/25/19 17:20: Magnesium 2.0 09/25/19 18:35: Urine Color Vidya, Urine Clarity Sl. Cloudy, Urine pH 6.0, Ur Specific [place] 1.015, Urine Protein 30 H, Urine Glucose (UA) Normal, Urine Ketones 50 H, Urine Occult Blood 10 H, Urine Nitrite Negative, Urine Bilirubin 1 H, Urine Urobilinogen 4 H, Ur Leukocyte Esterase 25 H, Urine RBC 0 SEEN, Urine WBC 0-5 SEEN, Ur Squamous Epith Cells 0-5 SEEN, Urine Bacteria 2+, Urine Mucus 3+ 09/25/19 19:05: Lactic Acid 0.9 09/25/19 23:43: POC Glucose 75 09/26/19 06:59: WBC 10.7, RBC 4.21, Hgb 13.3, Hct 40.0, MCV 95.0, MCH 31.6, MCHC 33.3, RDW Std Deviation 44.3 H, RDW Coeff of [place] 12.7, Plt Count 112 L, MPV 11.8, Immature Gran % (Auto) 0.600, Neut % (Auto) 75.7 H, Lymph % (Auto) 16.0 L, [place] % (Auto) 6.2, Eos % (Auto) 1.3, Baso % (Auto) 0.2, Absolute Neuts (auto) 8.1 H, Absolute Lymphs (auto) 1.71, Nucleated RBC % 0 09/26/19 06:59: Sodium 143, Potassium 3.6, Chloride 114 H, Carbon Dioxide 23.0, Anion Gap 6, BUN 9, Creatinine 0.64, Estim Creat Clear Calc 89.80, Est GFR (MDRD) Af Amer 126, Est GFR (MDRD) Non-Af 104, BUN/Creatinine Ratio 14.1, Glucose 81, Calcium 8.2 L, Total Bilirubin 1.20 H, AST 34, ALT 20, Alkaline Phosphatase 85, Total Protein 7.2, Albumin 3.3, Globulin 3.9, Albumin/Globulin Ratio 0.8 L Current Medications Acetaminophen (Tylenol) 650 mg PO Q6H PRN PRN PRN Reason: Non-cardiac pain (4-10/10) Last Admin: 09/26/19 07:52 Dose: 650 mg Documented by: Hydrocodone Bitart/Acetaminophen ([place] 5mg-325mg) 1 - 2 tablet PO Q4H PRN PRN PRN Reason: Pain Score 4-10/10 Al Hydroxide/Mg Hydroxide (Mylanta Ii) 15 - 30 ml PO Q4H PRN PRN PRN Reason: INDIGESTION Albuterol Sulfate (Ventolin Aerosols) 2.5 mg INHALATION Q2H PRN PRN PRN Reason: dyspnea, wheezing Albuterol/Ipratropium (Duoneb) 3 ml INHALATION Q4HWA.RT [facility] Last Admin: 09/26/19 11:07 Dose: 3 ml Documented by: Dextrose (D50w Syringe) 0 gm IV X1 PRN; Protocol PRN Reason: Hypoglycemia Diphenhydramine HCl (Benadryl) 25 mg PO DAILY PRN PRN PRN Reason: ALLERGIES Enoxaparin Sodium (Lovenox) 40 mg SC DAILY [facility] Last Admin: 09/26/19 09:34 Dose: 40 mg Documented by: Famotidine (Pepcid) 20 mg PO BID [facility] Last Admin: 09/26/19 09:34 Dose: 20 mg Documented by: Gabapentin (Neurontin) 800 mg PO BID [facility] Last Admin: 09/26/19 09:34 Dose: 800 mg Documented by: Glucagon () 1 mg IM .X1 PRN PRN Reason: Hypoglycemia Guaifenesin (Robitussin) 20 ml PO Q4H PRN PRN PRN Reason: COUGH Hydralazine HCl (Apresoline Iv) 10 mg IV Q4H PRN PRN PRN Reason: SBP > 160 Sodium Chloride () 1,000 mls @ 125 mls/hr IV .Q8H [facility] Last Admin: 09/26/19 07:53 Dose: 125 mls/hr Documented by: Azithromycin 500 mg/ Dextrose 255 mls @ 250 mls/hr IV Q24@2200 [facility] Last Infusion: 09/25/19 22:14 Dose: Infused Documented by: Ceftriaxone Sodium 2 gm/ (Sodium Chloride) 50 mls @ 100 mls/hr IV Q24H [facility] Stop: 10/02/19 22:29 Last Infusion: 09/25/19 22:44 Dose: Infused Documented by: Sodium Chloride () 250 mls @ 15 mls/hr IV .[id number] PRN PRN Reason: Saline Flush Sodium Chloride () 250 mls @ 15 mls/hr IV .[id number] PRN PRN Reason: Additional IVPB Infusion Insulin Human Lispro (Humalog Kwikpen (Bkc)) 0 unit SC Q6 [facility]; Protocol Last Admin: 09/26/19 12:42 Dose: Not Given Documented by: Magnesium Hydroxide (Milk Of Magnesia) 30 ml PO DAILY PRN PRN Reason: Constipation Melatonin (Melatonin) 3 mg PO QHS PRN PRN PRN Reason: INSOMNIA Morphine Sulfate () 1 - 2 mg IV Q4H PRN PRN PRN Reason: Pain Score 1-10/10 Last Admin: 09/26/19 09:52 Dose: 2 mg Documented by: Nicotine Polacrilex (Rugby Nicotine (Bkc)) 2 - 4 mg PO Q2H PRN PRN PRN Reason: Nicotine Craving Nutritional Formula (Lactose Free) (Ensure Clear) 120 ml PO 4X/DAY [facility] Last Admin: 09/26/19 09:37 Dose: 120 ml Documented by: Ondansetron HCl (Zofran) 4 mg IV Q8H PRN PRN PRN Reason: NAUSEA/VOMITING Promethazine HCl (Phenergan) 6.25 mg IV Q4H PRN PRN PRN Reason: NAUSEA/VOMITING Quetiapine Fumarate (Seroquel) 50 mg PO QHS [facility] Last Admin: 09/25/19 21:03 Dose: 50 mg Documented by: Sodium Chloride () 10 - 40 ml IV UD PRN PRN Reason: SALINE FLUSH Last Admin: 09/25/19 20:50 Dose: 10 ml Documented by: Throat Lozenges (Cepacol Sore Throat Lozenge) 1 lozenge MUCOUS MEM Q2H PRN PRN PRN Reason: Sore throat or cough Last Admin: 09/26/19 07:53 Dose: 1 lozenge Documented by: Venlafaxine HCl (Effexor Xr) 75 mg PO DAILY [facility] Last Admin: 09/26/19 09:34 Dose: 75 mg Documented by: STROKE Vital Signs/Narrative: Vital Signs Temp Pulse Resp BP Pulse Ox 09/26/19 12:00 37.2 C 98 24 H 136/70 H 93 09/26/19 11:07 96 22 H 09/26/19 11:00 37.2 C Medical Necessity - Tobacco Use Smoking Status: Current every day smoker Tobacco Use: Cigarettes Assessment/Plan All Active Problems Sepsis (Acute) Pneumonia (Acute) Frequent falls (Acute) 1. Sepsis * present arrival * 2/2 pneumonia * supportive mgmt * follow up cultures 2. Pneumococcal pneumonia * suspected * strep and legionella antigen negative, resp panel negative * CTX and azithromycin * pulmonary toilet * overall improving, if deescalates, consider broadening abx or CT imaging 3. COPD, possible exacerbation * on BDs * add methylprednisolone * follow up pulm as outpt 4. DM2 * controlled currently, but be uncontrolled with steroids * resume metformin * continue SSI 5. VTE prophylaxis: mod risk. LMWH Code Visit Inpatient E&M: 16481 Subs Hosp L3
[2019-09-26 16:06] LABS: Bedside Glucose 122 mg/dL (70-110)
[2019-09-26 16:20] LABS: Bedside Glucose 116 mg/dL (70-110)
[2019-09-26] MEDS: HYDROcodone Bitartrate/Apap 5/325 Tablet PO (18:49)
[2019-09-26] MEDS: QUEtiapine 25 MG Tablet 50 MG PO (21:14)
[2019-09-26 23:45] LABS: Bedside Glucose 238 mg/dL (70-110)
[2019-09-27] VITALS (8 sets, daily range): BP systolic 126–149; BP diastolic 60–84; PULSE 75–98; RESP 16–20; TEMP 36.4–36.8; O2SAT 90–94
[2019-09-27] MEDS: 0.9% Normal Saline 1,000 ML 125 ML IV ×3 (01:40→17:21)
[2019-09-27 05:32] LABS: Absolute Lymphocyte Count 0.76 X10^3/uL (0.83-4.51); Absolute Neutrophil Count 5.8 X10^3/uL (2.0-7.7); Basophil# 0.01 X10^3/uL; Basophil% 0.1 % (0-1); Hematocrit 37.9 % (37-47); Hemoglobin 12.3 g/dL (12.0-15.0); Lymphocyte # 0.76 X10^3/ul (4.0); Lymphocyte % 11.1 % (19-41); Mean Corp Hgb Conc 32.5 g/dL (32-36); Mean Corpuscular Hgb 31.1 pg (27.0-32.0); Mean Corpuscular Volume 95.9 fL (81-99); Mean Platelet Vol. 11.2 fl (6.2-12.0); Monocyte# 0.23 X10^3/uL; Monocyte% 3.4 % (0-10); NRBC Flagged by Analyzer 0 % (0-5); Neutrophil % 84.7 % (47-70); Platelet Count 137 K/mm3 (150-450); RBC Distribution Width CV 12.6 % (11.6-14.6); RBC Distribution Width SD 44.4 fl (35.1-43.9); Red Blood Count 3.95 M/mm3 (4.2-5.4); White Blood Count 6.9 K/mm3 (4.4-11.0)
[2019-09-27 05:46] LABS: Anion Gap 6 (5-15); BUN 8 mg/dL (7-18); BUN/Creat Ratio 11.7 RATIO (10-20); Calcium,Total 7.9 mg/dL (8.5-10.1); Chloride 111 mmol/L (98-107); Creatinine, Serum 0.69 mg/dL (0.55-1.02); EST Glomerular Filtration Rate 96 mL/min (>60); Est Glom Filt Rate - Afr Amer 116 mL/min (>60); Estimated Creatinine Clearance 83.29 ml/min; Glucose 172 mg/dL (74-106); Potassium 3.8 mmol/L (3.5-5.1); Sodium Level 141 mmol/L (136-145)
[2019-09-27] MEDS: BENZOCAINE/MENTHOL 1 LOZENGE MUCOUS MEM (06:39)
[2019-09-27 06:40] LABS: Bedside Glucose 129 mg/dL (70-110)
[2019-09-27] MEDS: Ipratropium/Albuterol Sulfate 3 ML AMPUL.NEB INHALATION ×3 (06:44→19:21)
[2019-09-27] MEDS: HYDROcodone Bitartrate/Apap 5/325 Tablet PO ×3 (08:46→17:28)
[2019-09-27] MEDS: Ensure Clear 120 ML Liquid PO ×4 (08:47→21:44)
[2019-09-27] MEDS: metFORMIN (XR) 500 MG Tablet PO (08:47)
[2019-09-27] MEDS: Venlafaxine XR 75 MG Capsule PO (08:47)
[2019-09-27] MEDS: Gabapentin 800 MG Tablet PO ×2 (08:47→21:45)
[2019-09-27] MEDS: Famotidine 20 MG Tablet PO ×2 (08:47→21:45)
[2019-09-27] MEDS: Enoxaparin 40 MG/0.4 ML Syringe SC (08:49)
[2019-09-27] MEDS: Insulin Lispro 100 UNIT/ML INSULN.PEN SC ×2 (11:43→16:30)
[2019-09-27 12:00] LABS: Bedside Glucose 212 mg/dL (70-110)
--- NOTE | 2019-09-27 12:12 | OT ---
Educational demo given for FWW safety. Pt demoed G understanding with return demo.
[2019-09-27] MEDS: 0.9% Saline Lock 10 ML Syringe IV (14:42)
[2019-09-27 16:50] LABS: Bedside Glucose 212 mg/dL (70-110)
--- NOTE | 2019-09-27 16:51 | PN_ITS ---
Patient Problems: Active and Suspected Problems Sepsis (Acute) Pneumonia (Acute) Frequent falls (Acute) Subjective: Patient was seen and examined today, she is still on nasal cannula O2, patient's voice is hoarse, she denies any fevers or chills. Patient's white blood cell count is 6.9 today, she is remained afebrile for the last 24 hours. - Physical Exam Vitals/I&O's: Vital Signs Temp Pulse Resp BP Pulse Ox 97.6 F L 89 20 H 137/68 H 94 09/27/19 14:38 09/27/19 14:55 09/27/19 14:55 09/27/19 14:38 09/27/19 14:38 Oxygen Flow Rate (L/min) 4 Oxygen Delivery Method Nasal Cannula Weight: 95.3 kg Body Mass Index (BMI) 36.0 Finger Stick Blood Glucose 157 Intake and Output for Last 24 Hours 09/25/19 09/26/19 09/27/19 23:59 23:59 23:59 Intake Total 2468.5 / 2468.5 4328.50 / 4328.50 1914.58 / 1914.58 Output Total 300 / 300 1400 / 1400 400 / 400 Balance 2168.5 / 2168.5 2928.50 / 2928.50 1514.58 / 1514.58 General: Alert, Oriented x3, Cooperative, No apparent distress, Well developed, - - Patient is hoarse HEENT: Atraumatic, PERRLA, EOMI, Normocephalic Oral: Moist Mucosa Neck: Supple, Trachea Midline, Thyroid Normal Size and Texture Lungs: Clear to auscultation, No rhonchi, No wheeze, No rales, Diminished Cardiovascular: Regular rate, Regular Rhythm, Normal S1, Normal S2, No murmurs, No Ectopic Activity, PMI Normal, No rub noted Abdomen: Bowel Sounds Present, Soft, Non Tender, Non-Distended, No hernias noted Extremities: No clubbing, No cyanosis, No edema, Capillary Refill Less than 3 Seconds Skin: No rashes, No breakdown Musculoskeletal: No Tenderness to Palpation of Joints or Extremities Neurological: Cranial nerves II-XII grossly intact, Neuro grossly intact, Sensory exam intact to light touch and pain, Coordination normal Psych/Mental Status: Normal Affect, Appropriate, Alert and oriented to time, place, person, mood and affect Microbiology Past 72 Hours 09/27/19 08:58 Sputum, Expectorated/Coughed Gram Stain - Final 09/25/19 20:10 Mucosa - Nasopharyngeal Respiratory Panel (PCR) - Final 09/25/19 18:35 Urine, Clean Catch Streptococcus pneumoniae Antigen (M - Final 09/25/19 18:35 Urine, Clean Catch Legionella Antigen - Final Laboratory Results 09/26/19 23:39: POC Glucose 238 H 09/27/19 05:05: WBC 6.9, RBC 3.95 L, Hgb 12.3, Hct 37.9, MCV 95.9, MCH 31.1, MCHC 32.5, RDW Std Deviation 44.4 H, RDW Coeff of [place] 12.6, Plt Count 137 L, MPV 11.2, Immature Gran % (Auto) 0.700, Neut % (Auto) 84.7 H, Lymph % (Auto) 11.1 L, [place] % (Auto) 3.4, Eos % (Auto) 0.0, Baso % (Auto) 0.1, Absolute Neuts (auto) 5.8, Absolute Lymphs (auto) 0.76 L, Nucleated RBC % 0 09/27/19 05:05: Sodium 141, Potassium 3.8, Chloride 111 H, Carbon Dioxide 24.0, Anion Gap 6, BUN 8, Creatinine 0.69, Estim Creat Clear Calc 83.29, Est GFR (MDRD) Af Amer 116, Est GFR (MDRD) Non-Af 96, BUN/Creatinine Ratio 11.7, Glucose 172 H, Calcium 7.9 L 09/27/19 06:30: POC Glucose 129 H 09/27/19 11:32: POC Glucose 212 H 09/27/19 16:28: POC Glucose 212 H Current Medications Acetaminophen (Tylenol) 650 mg PO Q6H PRN PRN PRN Reason: Non-cardiac pain (4-10/10) Last Admin: 09/26/19 07:52 Dose: 650 mg Documented by: Hydrocodone Bitart/Acetaminophen ([place] 5mg-325mg) 1 - 2 tablet PO Q4H PRN PRN PRN Reason: Pain Score 4-10/10 Last Admin: 09/27/19 12:46 Dose: 2 tablet Documented by: Al Hydroxide/Mg Hydroxide (Mylanta Ii) 15 - 30 ml PO Q4H PRN PRN PRN Reason: INDIGESTION Albuterol Sulfate (Ventolin Aerosols) 2.5 mg INHALATION Q2H PRN PRN PRN Reason: dyspnea, wheezing Albuterol/Ipratropium (Duoneb) 3 ml INHALATION Q4HWA.RT [facility] Last Admin: 09/27/19 14:55 Dose: 3 ml Documented by: Dextrose (D50w Syringe) 0 gm IV X1 PRN; Protocol PRN Reason: Hypoglycemia Diphenhydramine HCl (Benadryl) 25 mg PO DAILY PRN PRN PRN Reason: ALLERGIES Enoxaparin Sodium (Lovenox) 40 mg SC DAILY [facility] Last Admin: 09/27/19 08:49 Dose: 40 mg Documented by: Famotidine (Pepcid) 20 mg PO BID [facility] Last Admin: 09/27/19 08:47 Dose: 20 mg Documented by: Gabapentin (Neurontin) 800 mg PO BID [facility] Last Admin: 09/27/19 08:47 Dose: 800 mg Documented by: Glucagon () 1 mg IM .X1 PRN PRN Reason: Hypoglycemia Guaifenesin (Robitussin) 20 ml PO Q4H PRN PRN PRN Reason: COUGH Hydralazine HCl (Apresoline Iv) 10 mg IV Q4H PRN PRN PRN Reason: SBP > 160 Sodium Chloride () 1,000 mls @ 125 mls/hr IV .Q8H [facility] Last Admin: 09/27/19 09:34 Dose: 125 mls/hr Documented by: Azithromycin 500 mg/ Dextrose 255 mls @ 250 mls/hr IV Q24@2200 [facility] Last Infusion: 09/26/19 23:19 Dose: Infused Documented by: Ceftriaxone Sodium 2 gm/ (Sodium Chloride) 50 mls @ 100 mls/hr IV Q24H [facility] Stop: 10/02/19 22:29 Last Infusion: 09/26/19 21:41 Dose: Infused Documented by: Sodium Chloride () 250 mls @ 15 mls/hr IV .[id number] PRN PRN Reason: Saline Flush Sodium Chloride () 250 mls @ 15 mls/hr IV .[id number] PRN PRN Reason: Additional IVPB Infusion Insulin Human Lispro (Humalog Kwikpen (Bkc)) 0 unit SC TIDAC [facility]; Protocol Last Admin: 09/27/19 16:30 Dose: 2 units Documented by: Magnesium Hydroxide (Milk Of Magnesia) 30 ml PO DAILY PRN PRN Reason: Constipation Melatonin (Melatonin) 3 mg PO QHS PRN PRN PRN Reason: INSOMNIA Metformin HCl (Glucophage Xr) 500 mg PO DAILYCM [facility] Last Admin: 09/27/19 08:47 Dose: 500 mg Documented by: Methylprednisolone (Solu-Medrol) 40 mg IV Q8 [facility] Last Admin: 09/27/19 14:42 Dose: 40 mg Documented by: Morphine Sulfate () 1 - 2 mg IV Q4H PRN PRN PRN Reason: Pain Score 1-10/10 Last Admin: 09/26/19 09:52 Dose: 2 mg Documented by: Nicotine Polacrilex (Rugby Nicotine (Bkc)) 2 - 4 mg PO Q2H PRN PRN PRN Reason: Nicotine Craving Nutritional Formula (Lactose Free) (Ensure Clear) 120 ml PO 4X/DAY [facility] Last Admin: 09/27/19 14:45 Dose: 120 ml Documented by: Ondansetron HCl (Zofran) 4 mg IV Q8H PRN PRN PRN Reason: NAUSEA/VOMITING Promethazine HCl (Phenergan) 6.25 mg IV Q4H PRN PRN PRN Reason: NAUSEA/VOMITING Quetiapine Fumarate (Seroquel) 50 mg PO QHS [facility] Last Admin: 09/26/19 21:14 Dose: 50 mg Documented by: Sodium Chloride () 10 - 40 ml IV UD PRN PRN Reason: SALINE FLUSH Last Admin: 09/27/19 14:42 Dose: 20 ml Documented by: Throat Lozenges (Cepacol Sore Throat Lozenge) 1 lozenge MUCOUS MEM Q2H PRN PRN PRN Reason: Sore throat or cough Last Admin: 09/27/19 06:39 Dose: 1 lozenge Documented by: Venlafaxine HCl (Effexor Xr) 75 mg PO DAILY [facility] Last Admin: 09/27/19 08:47 Dose: 75 mg Documented by: Medical Necessity - Tobacco Use Smoking Status: Current every day smoker Tobacco Use: Cigarettes Assessment/Plan All Active Problems Sepsis (Acute) Pneumonia (Acute) Frequent falls (Acute) #1 sepsis-secondary to community-acquired pneumonia, organism unknown at this time, continue present antibiotics #2 immunity acquired bacterial pneumonia-etiology unclear at this time, continue current antibiotics #3 exacerbation of COPD-continue present medication #4 type 2 diabetes-continue to monitor blood sugars #5 hypoxia secondary to community-acquired pneumonia and exacerbation of COPD- monitor O2 sat Code Visit Inpatient E&M: 27914 Subs Hosp L2
[2019-09-27] MEDS: Acetaminophen 325 MG Tablet 650 MG PO (20:01)
[2019-09-27] MEDS: QUEtiapine 25 MG Tablet 50 MG PO (21:45)
[2019-09-27 23:51] LABS: Bedside Glucose 244 mg/dL (70-110)
[2019-09-28] VITALS (12 sets, daily range): BP systolic 131–148; BP diastolic 66–80; PULSE 80–90; RESP 18–25; TEMP 36.1–37.1; O2SAT 92–95
[2019-09-28] MEDS: 0.9% Normal Saline 1,000 ML 125 ML IV ×3 (01:30→19:12)
[2019-09-28] MEDS: 0.9% Saline Lock 10 ML Syringe IV ×3 (05:27→21:26)
--- NOTE | 2019-09-28 05:55 | RAD_ITS ---
STUDY: X-RAY CHEST REASON FOR EXAM: Female, 53 years old patient with pneumonia. TECHNIQUE: Single AP portable view of the chest. COMPARISON: September 25, 2019. FINDINGS: The lungs are expanded. There are extensive bilateral heterogeneous airspace consolidations that appear to opacify virtually the entirety of each lung. There is no demonstrated pleural abnormality. There is mild cardiac enlargement. Normal mediastinum and chas. Normal visualized pulmonary arteries. There is atherosclerotic calcification of the aortic arch with tortuosity. Normal visualized thoracic spine. Normal visualized ribs, clavicles, and shoulders. There is no demonstrated abnormality of the visualized soft tissue structures of the upper abdomen. RAD/Chest 1 View (Portable) IMPRESSION: Enlarging heterogeneous airspace consolidations probably representing pneumonia. Electronically Signed: Katrina Goldman MD at 6:56 EST , Service support ,
[2019-09-28] MEDS: Insulin Lispro 100 UNIT/ML INSULN.PEN SC ×2 (06:35→12:13)
[2019-09-28 06:45] LABS: Bedside Glucose 163 mg/dL (70-110)
[2019-09-28] MEDS: Ipratropium/Albuterol Sulfate 3 ML AMPUL.NEB INHALATION ×4 (06:53→21:35)
[2019-09-28] MEDS: HYDROcodone Bitartrate/Apap 5/325 Tablet PO ×3 (07:21→17:53)
[2019-09-28] MEDS: metFORMIN (XR) 500 MG Tablet PO (08:06)
[2019-09-28] MEDS: Ensure Clear 120 ML Liquid PO ×4 (08:06→21:40)
[2019-09-28] MEDS: Famotidine 20 MG Tablet PO ×2 (08:07→21:27)
[2019-09-28] MEDS: Venlafaxine XR 75 MG Capsule PO (08:07)
[2019-09-28] MEDS: Enoxaparin 40 MG/0.4 ML Syringe SC (08:07)
[2019-09-28] MEDS: Gabapentin 800 MG Tablet PO ×2 (08:08→21:27)
--- NOTE | 2019-09-28 11:11 | CON.PCM_ITS ---
Reason for Consult Date of Consultation: 09/28/19 Reason for Consultation: Pulmonary infiltrates History of Present Illness: The patient is a 53-year-old female, with a history as outlined below, who initially presented to the emergency department on September 25 with complaints of a fall. The patient does have a known history of upwards of 3 packs of cigarettes per day since the age of 17. However, she does report that she has plans to quit smoking completely, effective this hospitalization. She has never been evaluated by a project construction assistant manager in the past. However, she does report having undergone pulmonary function studies approximately 10 years ago. She does report that she was diagnosed with COPD of unknown severity. She currently only utilizes an albuterol rescue inhaler at her baseline. She is not oxygen dependent in her home environment. She currently reports the presence of shortness of breath and a cough, which has been largely nonproductive. The patient is not currently employed, as she is on disability. On presentation to the emergency department, the patient was noted to be febrile, tachycardic and tachypneic. Initial laboratory evaluation revealed an elevated white blood cell count to the 13,000. Chemistry profile was unremarkable. Initial plain film chest x-ray revealed a right lower lobe infiltrate. The patient was then admitted to the progressive care unit, where she has been maintained on scheduled bronchodilators, azithromycin, ceftriaxone and IV steroids over the last several days. In addition, she was maintained on supplemental IV fluids during the aforementioned time. She is currently documented to be overall net +9.7 L for the hospital admission. Given her overall lack of clinical improvement, consultation was placed to pulmonary medicine. Past Medical History Past Medical History (Chronic Problems): Chronic Problems Tobacco use (Chronic) Anxiety and depression (Chronic) History of brain tumor (Chronic) Allergies No Known Allergies Allergy (Verified 09/25/19 16:28) Home Medications: Ambulatory Orders Medication Instructions Recorded Gabapentin [Neurontin] 800 mg PO BID 09/01/19 Metformin HCl [Glucophage Xr] 500 mg PO DAILY 09/01/19 Quetiapine Fumarate [Seroquel] 50 mg PO QHS 09/01/19 Diphenhydramine HCl [Benadryl 25 mg PO DAILY PRN PRN 09/25/19 Allergy] Ibuprofen 600 mg PO TID #30 tab 09/25/19 Sumatriptan Succinate [Imitrex] 100 mg PO .X1 PRN 09/25/19 Venlafaxine HCl [Venlafaxine HCl 75 mg PO DAILY 09/25/19 ER] Surgical History: - - Brain surgery as noted x3, hysterectomy, bilateral carpal tunnel surgery, left upper extremity elbow surgery, tonsillectomy, umbilical hernia repair, cholecystectomy, appendectomy. Psychiatric History: Anxiety, Depression NET ARCHITECT History: No pertinent NET ARCHITECT history Lives: Alone Smoking Status: Current every day smoker Tobacco Use: Cigarettes Alcohol: None Drugs: None - *Family History Maternal History Items: - - Patient has a paternal family history of heart disease, CHF. Paternal History Items: - - Patient notes a paternal family history of diabetes, heart disease, coronary disease. Review of Systems Constitutional: Reports: Fever, Malaise, Fatigue Eyes: Denies: Blurred vision, Double vision HEENT: Denies: Head Aches, Sinus Congestion, Sinus Drainage Cardiovascular: Reports: Chest Tightness Respiratory: Reports: Cough, Shortness of Breath. Denies: Sputum production Gastrointestinal: Denies: Abdominal Pain, Nausea, Vomiting Genitourinary: Denies: Dysuria Musculoskeletal: Denies: Joint Pain, Joint Tenderness Skin: Denies: Rash, Wounds Neurological: Denies: Numbness, Tingling, Focal weakness Psychiatric: Denies: Anxiety, Depression, Homicidal Ideations, Suicidal Ideations Hematologic/ Lymphatic: Denies: Easy Bruising, Easy Bleeding Patient Problems: Active and Suspected Problems Sepsis (Acute) Pneumonia (Acute) Frequent falls (Acute) Objective: The patient's most recent lab work, culture data and imaging studies have all been personally reviewed. - Physical Exam Vitals/I&O's: Vital Signs Temp Pulse Resp BP Pulse Ox 97.9 F 85 20 H 131/80 H 93 09/28/19 05:25 09/28/19 10:41 09/28/19 10:41 09/28/19 05:25 09/28/19 06:53 Oxygen Flow Rate (L/min) 4 Oxygen Delivery Method Nasal Cannula Weight: 210 lb 1.608 oz Body Mass Index (BMI) 36.0 Finger Stick Blood Glucose 157 Intake and Output for Last 24 Hours 09/26/19 09/27/19 09/28/19 23:59 23:59 23:59 Intake Total 4328.50 / 4328.50 4796.67 / 4796.67 1070.83 / 1070.83 Output Total 1400 / 1400 850 / 850 400 / 400 Balance 2928.50 / 2928.50 3946.67 / 3946.67 670.83 / 670.83 General: Alert, Cooperative, No apparent distress HEENT: Atraumatic, PERRLA, Normocephalic Oral: No Gingival or Mucosal Lesions/ Ulcerations Neck: Supple, No Nodes, Trachea Midline Lungs: Diminished, Rales - R>L Cardiovascular: Regular rate, Regular Rhythm, Normal S1, Normal S2 Abdomen: Bowel Sounds Present, Soft, Non Tender, Obese Extremities: No clubbing, No cyanosis Skin: No breakdown Musculoskeletal: No Tenderness to Palpation of Joints or Extremities Lymphatic: No Cervical, Supraclavicular, or Inguinal Adenopathy Neurological: Neuro grossly intact Psych/Mental Status: Normal Affect, Appropriate Labs (Last 48 Hours) 09/26/19 09/26/19 09/26/19 12:29 15:55 23:39 WBC RBC Hgb Hct MCV MCH MCHC RDW Std Deviation RDW Coeff of [place] Plt Count MPV Immature Gran % (Auto) Neut % (Auto) Lymph % (Auto) Park % (Auto) Eos % (Auto) Baso % (Auto) Absolute Neuts (auto) Absolute Lymphs (auto) Nucleated RBC % Sodium Potassium Chloride Carbon Dioxide Anion Gap BUN Creatinine Estim Creat Clear Calc Est GFR (MDRD) Af Amer Est GFR (MDRD) Non-Af BUN/Creatinine Ratio Glucose Calcium POC Glucose 122 H 116 H 238 H 09/27/19 09/27/19 09/27/19 05:05 05:05 06:30 WBC 6.9 RBC 3.95 L Hgb 12.3 Hct 37.9 MCV 95.9 MCH 31.1 MCHC 32.5 RDW Std Deviation 44.4 H RDW Coeff of [place] 12.6 Plt Count 137 L MPV 11.2 Immature Gran % (Auto) 0.700 Neut % (Auto) 84.7 H Lymph % (Auto) 11.1 L Park % (Auto) 3.4 Eos % (Auto) 0.0 Baso % (Auto) 0.1 Absolute Neuts (auto) 5.8 Absolute Lymphs (auto) 0.76 L Nucleated RBC % 0 Sodium 141 Potassium 3.8 Chloride 111 H Carbon Dioxide 24.0 Anion Gap 6 BUN 8 Creatinine 0.69 Estim Creat Clear Calc 83.29 Est GFR (MDRD) Af Amer 116 Est GFR (MDRD) Non-Af 96 BUN/Creatinine Ratio 11.7 Glucose 172 H Calcium 7.9 L POC Glucose 129 H 09/27/19 09/27/19 09/27/19 11:32 16:28 23:47 WBC RBC Hgb Hct MCV MCH MCHC RDW Std Deviation RDW Coeff of [place] Plt Count MPV Immature Gran % (Auto) Neut % (Auto) Lymph % (Auto) Park % (Auto) Eos % (Auto) Baso % (Auto) Absolute Neuts (auto) Absolute Lymphs (auto) Nucleated RBC % Sodium Potassium Chloride Carbon Dioxide Anion Gap BUN Creatinine Estim Creat Clear Calc Est GFR (MDRD) Af Amer Est GFR (MDRD) Non-Af BUN/Creatinine Ratio Glucose Calcium POC Glucose 212 H 212 H 244 H 09/28/19 06:34 WBC RBC Hgb Hct MCV MCH MCHC RDW Std Deviation RDW Coeff of [place] Plt Count MPV Immature Gran % (Auto) Neut % (Auto) Lymph % (Auto) Park % (Auto) Eos % (Auto) Baso % (Auto) Absolute Neuts (auto) Absolute Lymphs (auto) Nucleated RBC % Sodium Potassium Chloride Carbon Dioxide Anion Gap BUN Creatinine Estim Creat Clear Calc Est GFR (MDRD) Af Amer Est GFR (MDRD) Non-Af BUN/Creatinine Ratio Glucose Calcium POC Glucose 163 H Microbiology 09/27/19 08:58 Sputum, Expectorated/Coughed Gram Stain - Final 09/25/19 20:10 Mucosa - Nasopharyngeal Respiratory Panel (PCR) - Final Clinical Impression(s) from Imaging Studies Brain CT 09/25/19 16:42 IMPRESSION: No acute intracranial abnormalities Electronically Signed: Roderick Hlot MD at 18:05 EST , Service support , Chest X-Ray 09/25/19 16:43 IMPRESSION: Increased opacification the right lung base since the previous study suggests worsening atelectasis or infiltrate. Follow-up recommended to assure resolution Electronically Signed: Roderick Holt MD at 18:07 EST , Service support , Chest X-Ray 09/28/19 05:55 IMPRESSION: Enlarging heterogeneous airspace consolidations probably representing pneumonia. Electronically Signed: Katrina Goldman MD at 6:56 EST , Service support , Current Medications Acetaminophen (Tylenol) 650 mg PO Q6H PRN PRN PRN Reason: Non-cardiac pain (4-10/10) Last Admin: 09/27/19 20:01 Dose: 650 mg Documented by: Hydrocodone Bitart/Acetaminophen ([place] 5mg-325mg) 1 - 2 tablet PO Q4H PRN PRN PRN Reason: Pain Score 4-10/10 Last Admin: 09/28/19 07:21 Dose: 2 tablet Documented by: Al Hydroxide/Mg Hydroxide (Mylanta Ii) 15 - 30 ml PO Q4H PRN PRN PRN Reason: INDIGESTION Albuterol Sulfate (Ventolin Aerosols) 2.5 mg INHALATION Q2H PRN PRN PRN Reason: dyspnea, wheezing Albuterol/Ipratropium (Duoneb) 3 ml INHALATION Q4HWA.RT [facility] [place] Last Admin: 09/28/19 10:41 Dose: 3 ml Documented by: Dextrose (D50w Syringe) 0 gm IV X1 PRN; Protocol PRN Reason: Hypoglycemia Diphenhydramine HCl (Benadryl) 25 mg PO DAILY PRN PRN PRN Reason: ALLERGIES Enoxaparin Sodium (Lovenox) 40 mg SC DAILY [facility] [place] Last Admin: 09/28/19 08:07 Dose: 40 mg Documented by: Famotidine (Pepcid) 20 mg PO BID [facility] [place] Last Admin: 09/28/19 08:07 Dose: 20 mg Documented by: Gabapentin (Neurontin) 800 mg PO BID [facility] [place] Last Admin: 09/28/19 08:08 Dose: 800 mg Documented by: Glucagon () 1 mg IM .X1 PRN PRN Reason: Hypoglycemia Guaifenesin (Robitussin) 20 ml PO Q4H PRN PRN PRN Reason: COUGH Hydralazine HCl (Apresoline Iv) 10 mg IV Q4H PRN PRN PRN Reason: SBP > 160 Sodium Chloride () 1,000 mls @ 75 mls/hr IV .[id number] [facility] [place] Last Admin: 09/28/19 08:06 Dose: 125 mls/hr Documented by: Azithromycin 500 mg/ Dextrose 255 mls @ 250 mls/hr IV Q24@2200 [facility] [place] Last Infusion: 09/27/19 23:34 Dose: Infused Documented by: Ceftriaxone Sodium 2 gm/ (Sodium Chloride) 50 mls @ 100 mls/hr IV Q24H [facility] [place] Stop: 10/02/19 22:29 Last Infusion: 09/27/19 22:10 Dose: Infused Documented by: Sodium Chloride () 250 mls @ 15 mls/hr IV .[id number] PRN PRN Reason: Saline Flush Sodium Chloride () 250 mls @ 15 mls/hr IV .[id number] PRN PRN Reason: Additional IVPB Infusion Insulin Human Lispro (Humalog Kwikpen (Bkc)) 0 unit SC TIDAC [facility] [place]; Protocol Last Admin: 09/28/19 06:35 Dose: 1 units Documented by: Magnesium Hydroxide (Milk Of Magnesia) 30 ml PO DAILY PRN PRN Reason: Constipation Melatonin (Melatonin) 3 mg PO QHS PRN PRN PRN Reason: INSOMNIA [facility] Admin: 09/28/19 08:06 Dose: 500 mg Documented by: Methylprednisolone (Solu-Medrol) 40 mg IV Q8 [facility] [place] Last Admin: 09/28/19 05:27 Dose: 40 mg Documented by: Morphine Sulfate () 1 - 2 mg IV Q4H PRN PRN PRN Reason: Pain Score 1-10/10 Last Admin: 09/26/19 09:52 Dose: 2 mg Documented by: Nicotine Polacrilex ([place] Nicotine (Bkc)) 2 - 4 mg PO Q2H PRN PRN PRN Reason: Nicotine Craving Nutritional Formula (Lactose Free) (Ensure Clear) 120 ml PO 4X/DAY [facility] [place] Last Admin: 09/28/19 08:06 Dose: 120 ml Documented by: Ondansetron HCl (Zofran) 4 mg IV Q8H PRN PRN PRN Reason: NAUSEA/VOMITING Promethazine HCl (Phenergan) 6.25 mg IV Q4H PRN PRN PRN Reason: NAUSEA/VOMITING Quetiapine Fumarate (Seroquel) 50 mg PO QHS [facility] Last Admin: 09/27/19 21:45 Dose: 50 mg Documented by: Sodium Chloride () 10 - 40 ml IV UD PRN PRN Reason: SALINE FLUSH Last Admin: 09/28/19 05:27 Dose: 10 ml Documented by: Throat Lozenges (Cepacol Sore Throat Lozenge) 1 lozenge MUCOUS MEM Q2H PRN PRN PRN Reason: Sore throat or cough Last Admin: 09/27/19 06:39 Dose: 1 lozenge Documented by: Venlafaxine HCl (Effexor Xr) 75 mg PO DAILY [facility] Last Admin: 09/28/19 08:07 Dose: 75 mg Documented by: Assessment/Plan All Active Problems Sepsis (Acute) Pneumonia (Acute) Frequent falls (Acute) RECOMMENDATIONS: 1. Obtain noncontrasted chest CT. 2. Potential bronchoscopic evaluation, depending on the results of CT chest. 3. Antimicrobial management per infectious diseases. 4. Continue scheduled bronchodilators and IV steroids. 5. Wean supplemental oxygen to maintain saturations at or above 90%. 6. Encourage incentive spirometer use and mobilize patient as tolerated. 7. Recommend outpatient pulmonary follow-up and repeat pulmonary function testing. IMPRESSIONS: 1. Acute hypoxemic respiratory failure, which appears to be secondary to severe community-acquired pneumonia Given the findings noted on plain film chest x-ray, will obtain a noncontrasted chest CT for further evaluation of the patient's lung parenchyma. Will defer antimicrobial management to infectious diseases, who has been consulted. For now, continue scheduled bronchodilators and steroids. Wean supplemental oxygen to maintain saturations at or above 90%. Encourage incentive spirometer use and mobilize patient as tolerated. Bronchoscopic evaluation can be considered, depending the results of the patient's CT chest. 2. Continuous tobacco dependency I personally spent 6 minutes discussing the deleterious effects of continued tobacco use with the patient, including modalities which could be utilized to achieve a smoke-free lifestyle. Nicotine replacement therapy can be offered to the patient while admitted to the hospital. 3. Obesity/anxiety/depression/diabetes Complicates care, management, recovery and prognosis. Continue home medications as indicated. This note was generated with [employer] software. It may contain incorrect words, spelling, and punctuation that were not noted in checking the note before signing. UPDATE: Noncontrasted chest CT was personally reviewed upon completion. Given the findings noted, the patient has been scheduled for bronchoscopic evaluation and bronchoalveolar lavage tomorrow at 12:30 PM. Code Visit Inpatient E&M: 04461 Init Hosp L3 - Behavior Interventions Behavior Intervention: 20658 Smoking Cessation 3-10 min
--- NOTE | 2019-09-28 11:13 | CT_ITS ---
STUDY: CT CHEST/THORAX WITHOUT CONTRAST REASON FOR EXAM: Female, 53 years old. ACUTE RESPIRATORY FAILURE. Hx of smoking, diabetes, sepsis, pneumonia and hypoxia RADIATION DOSAGE (If Supplied By Facility): CTDIvol = ( 20.13 ) mGy, DLP = ( 704.16 ) mGycm TECHNIQUE: Transaxial imaging was performed without the administration of intravenous contrast material. Multiplanar coronal and sagittal images were reformatted. Individualized dose optimization techniques were used for this CT. COMPARISON: Portable AP upright chest x-ray 0522 hours. FINDINGS: There are diffuse bilateral alveolar infiltrates that predominate in the mid and upper lung zones, consistent with pneumonia. These have a perihilar distribution and pulmonary edema is not excluded. There is a trace dependent right pleural effusion. Normal heart and pericardium. There are a number of conspicuous mediastinal lymph nodes. One of the largest is a 2.0 x 1.3 x 1.4 cm precarinal lymph node. There is a 1.4 x 1.05 x 1.4 cm node in the anterolateral aorticopulmonary window. Normal hilar regions. Normal unenhanced pulmonary arteries. There is atherosclerotic calcification of the aortic arch. There are multi-level degenerative changes of the thoracic spine. There are surgical clips of prior cholecystectomy at the gallbladder fossa. CT/Chest without Contrast IMPRESSION: Bilateral probable pneumonic infiltrates with a few mildly reactive mediastinal lymph nodes and trace right pleural effusion. Electronically Signed: Roderick Mejia MD at 15:52 EST , Service support ,
[2019-09-28 11:40] LABS: Bedside Glucose 159 mg/dL (70-110)
[2019-09-28 12:06] LABS: BNP,B-Type NATRIURETIC PEPTIDE 217.4 pg/mL (0-100)
--- NOTE | 2019-09-28 12:20 | PCM.HP.ID ---
Reason for Consult: Bilateral pneumonia Consulted by: Dr. Froilan Marie History of Present Illness: The patient is a 53 year old F [] 53-year-old white female with multiple comorbidities including diabetes mellitus, chronic tobacco abuse with underlying COPD presents with falls and generalized weakness along with pain. She states that she is has had shortness of breath over the past 3 weeks with dyspnea on activity. Patient did have fever when she presented to the emergency department and during the first 24 hours of this hospitalization. She was placed on ceftriaxone plus azithromycin empirically for suspected community-acquired pneumonia. Chest x-ray shows bilateral alveolar/interstitial infiltrates. She did undergo CT scans of the chest earlier today which I personally reviewed shows diffuse infiltrates bilaterally. Patient denies any hemoptysis. No significant phlegm production at this time. No significant gastrointestinal distress. She is edentulous. Her microbiological data remains negative with negative urine Legionella antigen and negative urine strep pneumo antigen. - Medical History Past Medical History (Chronic Problems): Chronic Problems Tobacco use (Chronic) Anxiety and depression (Chronic) History of brain tumor (Chronic) Allergies/Adverse Reactions: Allergies No Known Allergies Allergy (Verified 09/25/19 16:28) Home Medications: Ambulatory Orders Medication Instructions Recorded Gabapentin [Neurontin] 800 mg PO BID 09/01/19 Metformin HCl [Glucophage Xr] 500 mg PO DAILY 09/01/19 Quetiapine Fumarate [Seroquel] 50 mg PO QHS 09/01/19 Diphenhydramine HCl [Benadryl 25 mg PO DAILY PRN PRN 09/25/19 Allergy] Ibuprofen 600 mg PO TID #30 tab 09/25/19 Sumatriptan Succinate [Imitrex] 100 mg PO .X1 PRN 09/25/19 Venlafaxine HCl [Venlafaxine HCl 75 mg PO DAILY 09/25/19 ER] Vital Signs Temp Pulse Resp BP Pulse Ox 97.7 F L 81 20 H 144/73 H 92 09/28/19 12:11 09/28/19 12:11 09/28/19 12:11 09/28/19 12:11 09/28/19 12:11 Oxygen Flow Rate (L/min) 4 Oxygen Delivery Method Nasal Cannula Weight: 95.3 kg Body Mass Index (BMI) 36.0 Finger Stick Blood Glucose 157 Microbiology Past 72 Hours 09/27/19 08:58 Gram Stain - Final Sputum, Expectorated/Coughed 12/30/19 20:10 Respiratory Panel (PCR) - Final Mucosa - Nasopharyngeal 09/25/19 18:35 Streptococcus pneumoniae Antigen (M - Final Urine, Clean Catch 09/25/19 18:35 Legionella Antigen - Final Urine, Clean Catch Laboratory Tests Past 24 Hrs 09/28/19 11:26 B-Natriuretic Peptide 217.4 H - Other Studies Radiology: [] Other Studies: [] Route of nutrition/ use of supplements: [] Nutritional Intake: [] IV Site: [] Larios Catheter: [] Alert responsive on nasal cannula O2 lungs with coarse breath sounds bilaterally heart exam S1-S2 abdomen soft nontender - Assessment/Plan Antibiotics: [] Assessment/Plan: [] Active and Suspected Problems Sepsis (Acute) Pneumonia (Acute) Frequent falls (Acute) Community-acquired pneumonia with bilateral diffuse infiltrates. I will continue ceftriaxone plus azithromycin empirically for now. I would have a low threshold for diagnostic bronchoscopy given the extent of her disease on her CT scan.
[2019-09-28 14:12] LABS: International Normalized Ratio 1.1; Prothrombin Time (Protime)PT. 14.4 SECONDS (11.7-14.9)
--- NOTE | 2019-09-28 15:18 | CHAPLAIN ---
Type of Pastoral Visit _x__ Initial Visit ___ Follow-up Visit ___ On-call Visit ___ General Patient Visit ___ Spiritual Assessment ___ Family Conference ___ Bereavement ___ Rapid Response ___ Code Blue ___ Other (describe below) Pastoral Care Referral From _x__ Patient ___ Family ___ Nurse ___ Physician ___ Garage Door Technician ___ Director Of Training ___ Other (describe below) Sacrament/Intervention _x__ Active listening ___ Anointing ___ Shinto ___ Bereavement ___ Communion ___ Maritza exploration ___ _x__ Life review _x__ Prayer ___ Reconciliation ___ Sacrament of Sick _x__ Supportive presence ___ Wedding ___ Other (describe below) Pastoral Comments patient states that her ethnic studies professor did not come to see her but that he knows she is in hospital; pt expresses desire for prayer and spiritual support; pt wants to make life changes to improve her health and life
[2019-09-28 15:55] LABS: Bedside Glucose 139 mg/dL (70-110)
--- NOTE | 2019-09-28 19:00 | PCM.PROGNOTE ---
Patient Problems: Active and Suspected Problems Sepsis (Acute) Pneumonia (Acute) Frequent falls (Acute) Subjective: Patient was seen and examined today, chest x-ray was performed this morning which showed bilateral pulmonary infiltrates which appeared worse than her original chest x-ray on admission. I had pulmonary medicine as well as infectious diseases see the patient today, CT scan of the chest was ordered which showed bilateral infiltrates in the lung suggestive of pneumonia. Infectious diseases did not change her antibiotic regimen. Patient is currently on 4 L of nasal cannula O2. - Physical Exam Vitals/I&O's: Vital Signs Temp Pulse Resp BP Pulse Ox 98.7 F 80 25 H 148/78 H 95 09/28/19 17:45 09/28/19 17:45 09/28/19 17:45 09/28/19 17:45 09/28/19 17:45 Oxygen Flow Rate (L/min) 4 Oxygen Delivery Method Nasal Cannula Weight: 95.3 kg Body Mass Index (BMI) 36.0 Finger Stick Blood Glucose 157 Intake and Output for Last 24 Hours 09/26/19 09/27/19 09/28/19 23:59 23:59 23:59 Intake Total 4328.50 / 4328.50 4796.67 / 4796.67 1070.83 / 1070.83 Output Total 1400 / 1400 850 / 850 400 / 400 Balance 2928.50 / 2928.50 3946.67 / 3946.67 670.83 / 670.83 General: Alert, Oriented x3, Cooperative, No apparent distress, Well developed HEENT: Atraumatic, PERRLA, EOMI, Normocephalic Oral: Moist Mucosa Neck: Supple, Trachea Midline, Thyroid Normal Size and Texture Lungs: Diminished, Rhonchi - Expiratory rhonchi are noted bilaterally, Wheezes - Scattered expiratory wheezes are noted bilaterally Cardiovascular: Regular rate, Regular Rhythm, Normal S1, Normal S2, No murmurs Abdomen: Bowel Sounds Present, Soft, Non Tender, Non-Distended Extremities: No clubbing, No cyanosis, No edema, Capillary Refill Less than 3 Seconds Skin: No rashes, No breakdown Musculoskeletal: No Tenderness to Palpation of Joints or Extremities Neurological: Cranial nerves II-XII grossly intact, Neuro grossly intact, Sensory exam intact to light touch and pain Psych/Mental Status: Normal Affect, Appropriate, Alert and oriented to time, place, person, mood and affect Microbiology Past 72 Hours 12/30/19 19:05 Blood Culture (Wb) - Left Hand Blood Culture - Preliminary No growth in 48 hours. 09/25/19 19:35 Blood Culture (Wb) - Left Wrist Blood Culture - Preliminary No growth in 48 hours. 09/27/19 08:58 Sputum, Expectorated/Coughed Gram Stain - Final 09/25/19 20:10 Mucosa - Nasopharyngeal Respiratory Panel (PCR) - Final 09/25/19 18:35 Urine, Clean Catch Streptococcus pneumoniae Antigen (M - Final 09/25/19 18:35 Urine, Clean Catch Legionella Antigen - Final Laboratory Results 09/27/19 23:47: POC Glucose 244 H 09/28/19 06:34: POC Glucose 163 H 09/28/19 11:22: POC Glucose 159 H 09/28/19 11:26: B-Natriuretic Peptide 217.4 H 09/28/19 13:56: PT 14.4, INR 1.1 09/28/19 15:48: POC Glucose 139 H Current Medications Acetaminophen (Tylenol) 650 mg PO Q6H PRN PRN PRN Reason: Non-cardiac pain (4-10/10) Last Admin: 09/27/19 20:01 Dose: 650 mg Documented by: Hydrocodone Bitart/Acetaminophen (Huron 5mg-325mg) 1 - 2 tablet PO Q4H PRN PRN PRN Reason: Pain Score 4-10/10 Last Admin: 09/28/19 17:53 Dose: 2 tablet Documented by: Al Hydroxide/Mg Hydroxide (Mylanta Ii) 15 - 30 ml PO Q4H PRN PRN PRN Reason: INDIGESTION Albuterol Sulfate (Ventolin Aerosols) 2.5 mg INHALATION Q2H PRN PRN PRN Reason: dyspnea, wheezing Albuterol/Ipratropium (Duoneb) 3 ml INHALATION Q4HWA.RT [facility] Last Admin: 09/28/19 14:57 Dose: 3 ml Documented by: Dextrose (D50w Syringe) 0 gm IV X1 PRN; Protocol PRN Reason: Hypoglycemia Diphenhydramine HCl (Benadryl) 25 mg PO DAILY PRN PRN PRN Reason: ALLERGIES Enoxaparin Sodium (Lovenox) 40 mg SC DAILY [facility] Last Admin: 09/28/19 08:07 Dose: 40 mg Documented by: Famotidine (Pepcid) 20 mg PO BID [facility] Last Admin: 09/28/19 08:07 Dose: 20 mg Documented by: Gabapentin (Neurontin) 800 mg PO BID [facility] Last Admin: 09/28/19 08:08 Dose: 800 mg Documented by: Glucagon () 1 mg IM .X1 PRN PRN Reason: Hypoglycemia Guaifenesin (Robitussin) 20 ml PO Q4H PRN PRN PRN Reason: COUGH Hydralazine HCl (Apresoline Iv) 10 mg IV Q4H PRN PRN PRN Reason: SBP > 160 Sodium Chloride () 1,000 mls @ 75 mls/hr IV .[id number] [facility] Last Admin: 09/28/19 08:06 Dose: 125 mls/hr Documented by: Azithromycin 500 mg/ Dextrose 255 mls @ 250 mls/hr IV Q24@2200 [facility] Last Infusion: 09/27/19 23:34 Dose: Infused Documented by: Ceftriaxone Sodium 2 gm/ (Sodium Chloride) 50 mls @ 100 mls/hr IV Q24H [facility] Stop: 10/02/19 22:29 Last Infusion: 09/27/19 22:10 Dose: Infused Documented by: Sodium Chloride () 250 mls @ 15 mls/hr IV .[id number] PRN PRN Reason: Saline Flush Sodium Chloride () 250 mls @ 15 mls/hr IV .[id number] PRN PRN Reason: Additional IVPB Infusion Insulin Human Lispro (Humalog Kwikpen (Bkc)) 0 unit SC TIDAC [facility]; Protocol Last Admin: 09/28/19 15:49 Dose: Not Given Documented by: Magnesium Hydroxide (Milk Of Magnesia) 30 ml PO DAILY PRN PRN Reason: Constipation Melatonin (Melatonin) 3 mg PO QHS PRN PRN PRN Reason: INSOMNIA Metformin HCl (Glucophage Xr) 500 mg PO DAILYCM [facility] Last Admin: 09/28/19 08:06 Dose: 500 mg Documented by: Methylprednisolone (Solu-Medrol) 40 mg IV Q8 [facility] Last Admin: 09/28/19 13:48 Dose: 40 mg Documented by: Morphine Sulfate () 1 - 2 mg IV Q4H PRN PRN PRN Reason: Pain Score 1-10/10 Last Admin: 12/31/19 09:52 Dose: 2 mg Documented by: Nicotine Polacrilex (Rugby Nicotine (Bkc)) 2 - 4 mg PO Q2H PRN PRN PRN Reason: Nicotine Craving Nutritional Formula (Lactose Free) (Ensure Clear) 120 ml PO 4X/DAY [facility] Last Admin: 09/28/19 16:47 Dose: 120 ml Documented by: Ondansetron HCl (Zofran) 4 mg IV Q8H PRN PRN PRN Reason: NAUSEA/VOMITING Promethazine HCl (Phenergan) 6.25 mg IV Q4H PRN PRN PRN Reason: NAUSEA/VOMITING Quetiapine Fumarate (Seroquel) 50 mg PO QHS [facility] Last Admin: 09/27/19 21:45 Dose: 50 mg Documented by: Sodium Chloride () 10 - 40 ml IV UD PRN PRN Reason: SALINE FLUSH Last Admin: 09/28/19 13:49 Dose: 20 ml Documented by: Throat Lozenges (Cepacol Sore Throat Lozenge) 1 lozenge MUCOUS MEM Q2H PRN PRN PRN Reason: Sore throat or cough Last Admin: 09/27/19 06:39 Dose: 1 lozenge Documented by: Venlafaxine HCl (Effexor Xr) 75 mg PO DAILY [facility] Last Admin: 09/28/19 08:07 Dose: 75 mg Documented by: Medical Necessity - Tobacco Use Smoking Status: Current every day smoker Tobacco Use: Cigarettes Assessment/Plan All Active Problems Sepsis (Acute) Pneumonia (Acute) Frequent falls (Acute) #1 sepsis-secondary to community-acquired pneumonia, organism unknown at this time, continue present antibiotics, ID and pulmonary medicine is seeing the patient #2 Community acquired bacterial pneumonia-etiology unclear at this time, continue current antibiotics #3 exacerbation of COPD-continue present medication #4 type 2 diabetes-continue to monitor blood sugars #5 hypoxia secondary to community-acquired pneumonia and exacerbation of COPD-monitor O2 sat Code Visit Inpatient E&M: 40766 Subs Hosp L2
[2019-09-28] MEDS: QUEtiapine 25 MG Tablet 50 MG PO (21:27)
[2019-09-28 23:15] LABS: Bedside Glucose 191 mg/dL (70-110)
[2019-09-29] VITALS (14 sets, daily range): BP systolic 119–148; BP diastolic 65–89; PULSE 80–99; RESP 15–20; TEMP 36.6–37; O2SAT 84–95
--- NOTE | 2019-09-29 | FLU_PTH ---
PATIENT: MICHELLE CAMERON LOC: [facility] U#:[id number] AGE/SX: 53/F ROOM: [facility] RE09/25/[address]: Dr. Froilan Marie DO : 1965 BED: 1 DIS: 10/01/2019 SPEC #: [id number] RECD: 09/29/19 14:35 STATUS: [facility] REQ #: [id number] KENDRICK: 09/29/19 00:[address]: Eddie Irene DEPT: CYTOLOGY RECD BY: Dax Easton ENTERED: 09/29/19 14:36 SP TYPE: Fluid OTHR DR: MD Dr. Eddie Mehta DO Dr. Marc Fiorentino, MD Dr. Mark Tereletsky, DO Out of [facility] Doctor Tissues: A - Lingula of left lung B - Bronchus of right lower lobe Procedures: Special Stain Group II Surgery Specimen Level IV Cytospin Fluid Comments: @ Ordering doctor for SSII edited from to [email or web address] Nagy by SAVANNAH at 10/02/19 0746 @ Ordering doctor for SUIV edited from to [email or web address] Nagy by SAVANNAH at 10/02/19 0746 @ Ordering doctor for CYSPIN edited from to @ by SAVANNAH at 10/02/19 0746 @ Submitting doctor edited from to [email or web address] Nagy by RGOOD at 10/02/19 0746 HEADER OPERATION: Bronchoscopy (MAC) PRE-OP DIAGNOSIS: Pneumonia TISSUE SUBMITTED: A - Lingula fluid for cytology, B - RLL fluid for cytology DIAGNOSIS CYTOLOGY A. Lingula fluid for cytology (cytospin and cell block): Negative for malignant cells. B. RLL fluid for cytology (cytospin and cell block): Negative for malignant cells. MURTAZA:mellissa 10/02/19 COMMENT Correlation with clinical, radiologic findings and appropriate follow up are necessary. CYTOLOGY STUDY Slides are reviewed. CYTOLOGY GROSS A - Received is 15 ml of red cloudy fluid labeled with the patient's name and and designated per the requisition as lingula. Submitted for cytology preparation including cell block. B - Received is 10 ml of red cloudy fluid labeled with the patient's name and and designated per the requisition as RLL. Submitted for cytology preparation including cell block. / mellissa 09/29/19 TC:5 CPT: 83491 x2, 41578 x2
[2019-09-29] MEDS: 0.9% Saline Lock 10 ML Syringe IV (05:04)
--- NOTE | 2019-09-29 05:55 | RAD_ITS ---
STUDY: X-RAY CHEST REASON FOR EXAM: Female, 53 years old. PNEUMONIA TECHNIQUE: PA and lateral views of the chest. COMPARISON: Portable AP upright chest x-ray September 28, 2019 FINDINGS: Bilateral diffuse alveolar infiltrates consistent with pneumonia are again present. The overall confluent density of the left infiltrate appears mildly improved, although this may in part be due to differences in technique from one exam to the next. There is no demonstrated pleural abnormality. Normal size heart. Normal mediastinum and visualized chas. There is stable atherosclerotic calcification of the aortic arch. There are stable degenerative changes of the visualized thoracic spine. Right lateral wedging of the T7 and T8 vertebrae as well as borderline loss of height at T5 and T6 grossly unchanged. Normal visualized ribs, clavicles, and shoulders. Surgical clips consistent with prior cholecystectomy again project in the right upper quadrant of the abdomen. RAD/Chest PA and Lateral IMPRESSION: Bilateral pneumonic alveolar infiltrates again noted, with possible mild improvement on the left. Electronically Signed: Roderick Mejia MD at 12:06 EST , Service support ,
[2019-09-29 06:40] LABS: Bedside Glucose 128 mg/dL (70-110)
--- NOTE | 2019-09-29 07:04 | PCM.PN.PUL ---
Patient Problems: Active and Suspected Problems Sepsis (Acute) Pneumonia (Acute) Frequent falls (Acute) Subjective: The patient was seen and examined at the bedside this morning. Events from the last 24 hours have been reviewed. The patient is currently afebrile, hemodynamically stable and maintaining appropriate oxygen saturations on 4 L/min via nasal cannula. The patient's noncontrasted chest CT was completed yesterday and personally reviewed. There was extensive bilateral perihilar infiltrates with relative sparing of the periphery with upper and mid lung zone predominance. There is also evidence of mediastinal adenopathy. Accordingly, the patient was referred to undergo bronchoscopic evaluation with plans for bronchial alveolar lavage today at 1230. The patient is in agreement to proceed with the procedure scheduled. Objective: The patient's most recent lab work, culture data and imaging studies have all been personally reviewed. Respiratory viral panel was negative. Strep and urine Legionella antigens were negative. Blood cultures have shown no growth to date. Sputum culture is pending. - Physical Exam Vitals/I&O's: Vital Signs Temp Pulse Resp BP Pulse Ox 98 F 80 20 H 135/78 H 92 09/29/19 02:57 09/29/19 02:57 09/29/19 02:57 09/29/19 02:57 09/29/19 02:57 Oxygen Flow Rate (L/min) 4 Oxygen Delivery Method Nasal Cannula Weight: 210 lb 1.608 oz Body Mass Index (BMI) 36.0 Finger Stick Blood Glucose 157 Intake and Output for Last 24 Hours 09/27/19 09/28/19 09/29/19 23:59 23:59 23:59 Intake Total 4796.67 / 4796.67 2725.41 / 2725.41 Output Total 850 / 850 800 / 800 900 / 900 Balance 3946.67 / 3946.67 1925.41 / 1925.41 -900 / -900 General: Alert, Cooperative, No apparent distress HEENT: Atraumatic, PERRLA, Normocephalic Oral: No Gingival or Mucosal Lesions/ Ulcerations Neck: Supple, No Nodes, Trachea Midline Lungs: Diminished, Rales Cardiovascular: Regular rate, Regular Rhythm, Normal S1, Normal S2, No murmurs Abdomen: Bowel Sounds Present, Soft, Non Tender, Obese Extremities: No clubbing, No cyanosis, No edema Skin: No breakdown Musculoskeletal: No Tenderness to Palpation of Joints or Extremities, No Muscle Wasting Lymphatic: No Cervical, Supraclavicular, or Inguinal Adenopathy Neurological: Cranial nerves II-XII grossly intact, Neuro grossly intact Psych/Mental Status: Normal Affect, Appropriate Labs (Last 48 Hours) 09/27/19 09/27/19 09/27/19 11:32 16:28 23:47 PT INR B-Natriuretic Peptide POC Glucose 212 H 212 H 244 H 09/28/19 09/28/19 09/28/19 06:34 11:22 11:26 PT INR B-Natriuretic Peptide 217.4 H POC Glucose 163 H 159 H 09/28/19 09/28/19 09/28/19 13:56 15:48 22:57 PT 14.4 INR 1.1 B-Natriuretic Peptide POC Glucose 139 H 191 H 09/29/19 06:33 PT INR B-Natriuretic Peptide POC Glucose 128 H Microbiology 09/25/19 19:05 Blood Culture (Wb) - Left Hand Blood Culture - Preliminary No growth in 48 hours. 09/25/19 19:35 Blood Culture (Wb) - Left Wrist Blood Culture - Preliminary No growth in 48 hours. 09/27/19 08:58 Sputum, Expectorated/Coughed Gram Stain - Final Clinical Impression(s) from Imaging Studies Brain CT 09/25/19 16:42 IMPRESSION: No acute intracranial abnormalities Electronically Signed: Roderick Holt MD at 18:05 EST , Service support , Chest X-Ray 09/25/19 16:43 IMPRESSION: Increased opacification the right lung base since the previous study suggests worsening atelectasis or infiltrate. Follow-up recommended to assure resolution Electronically Signed: Roderick Holt MD at 18:07 EST , Service support , Chest X-Ray 09/28/19 05:55 IMPRESSION: Enlarging heterogeneous airspace consolidations probably representing pneumonia. Electronically Signed: Katrina Goldman MD at 6:56 EST , Service support , Chest CT 09/28/19 11:13 IMPRESSION: Bilateral probable pneumonic infiltrates with a few mildly reactive mediastinal lymph nodes and trace right pleural effusion. Electronically Signed: Roderick Mejia MD at 15:52 EST , Service support , Current Medications Acetaminophen (Tylenol) 650 mg PO Q6H PRN PRN PRN Reason: Non-cardiac pain (4-10/10) Last Admin: 09/27/19 20:01 Dose: 650 mg Documented by: Hydrocodone Bitart/Acetaminophen (Beaver 5mg-325mg) 1 - 2 tablet PO Q4H PRN PRN PRN Reason: Pain Score 4-10/10 Last Admin: 09/28/19 17:53 Dose: 2 tablet Documented by: Al Hydroxide/Mg Hydroxide (Mylanta Ii) 15 - 30 ml PO Q4H PRN PRN PRN Reason: INDIGESTION Albuterol Sulfate (Ventolin Aerosols) 2.5 mg INHALATION Q2H PRN PRN PRN Reason: dyspnea, wheezing Albuterol/Ipratropium (Duoneb) 3 ml INHALATION Q4HWA.RT COUNTS INCLUDE 234 BEDS AT THE [facility] Last Admin: 09/28/19 21:35 Dose: 3 ml Documented by: Dextrose (D50w Syringe) 0 gm IV X1 PRN; Protocol PRN Reason: Hypoglycemia Diphenhydramine HCl (Benadryl) 25 mg PO DAILY PRN PRN PRN Reason: ALLERGIES Enoxaparin Sodium (Lovenox) 40 mg SC DAILY COUNTS INCLUDE 234 BEDS AT THE [facility] Last Admin: 09/28/19 08:07 Dose: 40 mg Documented by: Famotidine (Pepcid) 20 mg PO BID COUNTS INCLUDE 234 BEDS AT THE [facility] Last Admin: 09/28/19 21:27 Dose: 20 mg Documented by: Gabapentin (Neurontin) 800 mg PO BID COUNTS INCLUDE 234 BEDS AT THE [facility] Last Admin: 09/28/19 21:27 Dose: 800 mg Documented by: Glucagon () 1 mg IM .X1 PRN PRN Reason: Hypoglycemia Guaifenesin (Robitussin) 20 ml PO Q4H PRN PRN PRN Reason: COUGH Hydralazine HCl (Apresoline Iv) 10 mg IV Q4H PRN PRN PRN Reason: SBP > 160 Sodium Chloride () 1,000 mls @ 75 mls/hr IV .[id number] COUNTS INCLUDE 234 BEDS AT THE [facility] Last Infusion: 09/28/19 23:55 Dose: 75 mls/hr Documented by: Azithromycin 500 mg/ Dextrose 255 mls @ 250 mls/hr IV Q24@2200 COUNTS INCLUDE 234 BEDS AT THE [facility] Last Infusion: 09/28/19 23:55 Dose: Infused Documented by: Ceftriaxone Sodium 2 gm/ (Sodium Chloride) 50 mls @ 100 mls/hr IV Q24H COUNTS INCLUDE 234 BEDS AT THE [facility] Stop: 10/02/19 22:29 Last Infusion: 09/28/19 21:55 Dose: Infused Documented by: Sodium Chloride () 250 mls @ 15 mls/hr IV .[id number] PRN PRN Reason: Saline Flush Sodium Chloride () 250 mls @ 15 mls/hr IV .[id number] PRN PRN Reason: Additional IVPB Infusion Insulin Human Lispro (Humalog Kwikpen (Bkc)) 0 unit SC TIDAC COUNTS INCLUDE 234 BEDS AT THE [facility]; Protocol Last Admin: 09/29/19 06:36 Dose: Not Given Documented by: Magnesium Hydroxide (Milk Of Magnesia) 30 ml PO DAILY PRN PRN Reason: Constipation Melatonin (Melatonin) 3 mg PO QHS PRN PRN PRN Reason: INSOMNIA [facility] Last Admin: 09/28/19 08:06 Dose: 500 mg Documented by: Methylprednisolone (Solu-Medrol) 40 mg IV Q8 COUNTS INCLUDE 234 BEDS AT THE [facility] Last Admin: 09/29/19 05:04 Dose: 40 mg Documented by: Morphine Sulfate () 1 - 2 mg IV Q4H PRN PRN PRN Reason: Pain Score 1-10/10 Last Admin: 09/26/19 09:52 Dose: 2 mg Documented by: Nicotine Polacrilex (Rugby Nicotine (Bkc)) 2 - 4 mg PO Q2H PRN PRN PRN Reason: Nicotine Craving Nutritional Formula (Lactose Free) (Ensure Clear) 120 ml PO 4X/DAY COUNTS INCLUDE 234 BEDS AT THE [facility] Last Admin: 09/28/19 21:40 Dose: 120 ml Documented by: Ondansetron HCl (Zofran) 4 mg IV Q8H PRN PRN PRN Reason: NAUSEA/VOMITING Promethazine HCl (Phenergan) 6.25 mg IV Q4H PRN PRN PRN Reason: NAUSEA/VOMITING Quetiapine Fumarate (Seroquel) 50 mg PO QHS [facility] Last Admin: 09/28/19 21:27 Dose: 50 mg Documented by: Sodium Chloride () 10 - 40 ml IV UD PRN PRN Reason: SALINE FLUSH Last Admin: 09/29/19 05:04 Dose: 10 ml Documented by: Throat Lozenges (Cepacol Sore Throat Lozenge) 1 lozenge MUCOUS MEM Q2H PRN PRN PRN Reason: Sore throat or cough Last Admin: 09/27/19 06:39 Dose: 1 lozenge Documented by: Venlafaxine HCl (Effexor Xr) 75 mg PO DAILY [facility] Last Admin: 09/28/19 08:07 Dose: 75 mg Documented by: Medical Necessity - Tobacco Use Smoking Status: Current every day smoker Tobacco Use: Cigarettes Assessment/Plan All Active Problems Sepsis (Acute) Pneumonia (Acute) Frequent falls (Acute) RECOMMENDATIONS: 1. We will proceed with diagnostic bronchoscopy today with bronchial alveolar lavage. Fluid will be sent for cell count and cultures. 2. Continue antimicrobial therapy per ID recommendations. 3. Wean supplemental oxygen to maintain saturations at or above 90%. 4. Encourage incentive spirometer use and mobilize patient as tolerated. 5. Continue scheduled bronchodilators and steroids. 6. Recommend formal outpatient pulmonary follow-up with repeat PFTs. IMPRESSIONS: 1. Acute hypoxemic respiratory failure, which appears to be secondary to severe community-acquired pneumonia Given the findings noted on plain film chest x-ray, a CT chest was obtained which did reveal significant bilateral perihilar consolidations with relative sparing of the periphery and some mediastinal adenopathy. Accordingly, the patient will be taken for bronchoscopy with BAL today. Antimicrobials will be continued per ID recommendations. Supplemental oxygen will be weaned and scheduled bronchodilators, along with steroids will be continued. 2. Continuous tobacco dependency Tobacco cessation counseling was provided. Nicotine replacement therapy can be offered to the patient while admitted to the hospital. 3. Obesity/anxiety/depression/diabetes Complicates care, management, recovery and prognosis. Continue home medications as indicated. This note was generated with [employer] software. It may contain incorrect words, spelling, and punctuation that were not noted in checking the note before signing. Code Visit Inpatient E&M: 87280 Subs Hosp L3
[2019-09-29] MEDS: Ipratropium/Albuterol Sulfate 3 ML AMPUL.NEB INHALATION ×4 (07:21→18:54)
[2019-09-29] MEDS: 0.9% Normal Saline 1,000 ML 75 ML IV (08:34)
--- NOTE | 2019-09-29 11:07 | PCM.PN.ID ---
Patient Problems: Active and Suspected Problems Sepsis (Acute) Pneumonia (Acute) Frequent falls (Acute) Subjective: Patient remains on ceftriaxone plus azithromycin empirically for suspected community-acquired pneumonia. Has a nonproductive cough. No fevers. No gastrointestinal distress. Patient is scheduled for diagnostic bronchoscopy later this morning. Objective: Alert does not appear toxic on 4 L nasal cannula lungs shows coarse breath sounds heart exam S1-S2 abdomen soft nontender - Physical Exam Vitals/I&O's: Vital Signs Temp Pulse Resp BP Pulse Ox 97.9 F 99 20 H 147/87 H 90 09/29/19 08:30 09/29/19 08:30 09/29/19 08:30 09/29/19 08:30 09/29/19 08:30 Oxygen Flow Rate (L/min) 4 Oxygen Delivery Method Nasal Cannula Weight: 95.3 kg Body Mass Index (BMI) 36.0 Finger Stick Blood Glucose 157 Intake and Output for Last 24 Hours 09/27/19 09/28/19 09/29/19 23:59 23:59 23:59 Intake Total 4796.67 / 4796.67 2725.41 / 2725.41 648.75 / 648.75 Output Total 850 / 850 800 / 800 900 / 900 Balance 3946.67 / 3946.67 1925.41 / 1925.41 -251.25 / -251.25 Microbiology Past 72 Hours 09/25/19 19:05 Blood Culture (Wb) - Left Hand Blood Culture - Preliminary No growth in 48 hours. 09/25/19 19:35 Blood Culture (Wb) - Left Wrist Blood Culture - Preliminary No growth in 48 hours. 09/27/19 08:58 Sputum, Expectorated/Coughed Gram Stain - Final 09/25/19 20:10 Mucosa - Nasopharyngeal Respiratory Panel (PCR) - Final Laboratory Results 09/28/19 11:22: POC Glucose 159 H 09/28/19 11:26: B-Natriuretic Peptide 217.4 H 09/28/19 13:56: PT 14.4, INR 1.1 09/28/19 15:48: POC Glucose 139 H 09/28/19 22:57: POC Glucose 191 H 09/29/19 06:33: POC Glucose 128 H Current Medications Acetaminophen (Tylenol) 650 mg PO Q6H PRN PRN PRN Reason: Non-cardiac pain (-07/06) Last Admin: 09/27/19 20:01 Dose: 650 mg Documented by: Hydrocodone Bitart/Acetaminophen ([place] 5mg-325mg) 1 - 2 tablet PO Q4H PRN PRN PRN Reason: Pain Score 4-10/10 Last Admin: 09/28/19 17:53 Dose: 2 tablet Documented by: Al Hydroxide/Mg Hydroxide (Mylanta Ii) 15 - 30 ml PO Q4H PRN PRN PRN Reason: INDIGESTION Albuterol Sulfate (Ventolin Aerosols) 2.5 mg INHALATION Q2H PRN PRN PRN Reason: dyspnea, wheezing Albuterol/Ipratropium (Duoneb) 3 ml INHALATION Q4HWA.RT [facility] Last Admin: 09/29/19 07:21 Dose: 3 ml Documented by: Dextrose (D50w Syringe) 0 gm IV X1 PRN; Protocol PRN Reason: Hypoglycemia Diphenhydramine HCl (Benadryl) 25 mg PO DAILY PRN PRN PRN Reason: ALLERGIES Enoxaparin Sodium (Lovenox) 40 mg SC DAILY [facility] Last Admin: 09/28/19 08:07 Dose: 40 mg Documented by: Famotidine (Pepcid) 20 mg PO BID [facility] Last Admin: 09/28/19 21:27 Dose: 20 mg Documented by: Gabapentin (Neurontin) 800 mg PO BID [facility] Last Admin: 09/28/19 21:27 Dose: 800 mg Documented by: Glucagon () 1 mg IM .X1 PRN PRN Reason: Hypoglycemia Guaifenesin (Robitussin) 20 ml PO Q4H PRN PRN PRN Reason: COUGH Hydralazine HCl (Apresoline Iv) 10 mg IV Q4H PRN PRN PRN Reason: SBP > 160 Sodium Chloride () 1,000 mls @ 75 mls/hr IV .[id number] [facility] Last Admin: 09/29/19 08:34 Dose: 75 mls/hr Documented by: Azithromycin 500 mg/ Dextrose 255 mls @ 250 mls/hr IV Q24@2200 [facility] Last Infusion: 09/28/19 23:55 Dose: Infused Documented by: Ceftriaxone Sodium 2 gm/ (Sodium Chloride) 50 mls @ 100 mls/hr IV Q24H [facility] Stop: 10/02/19 22:29 Last Infusion: 09/28/19 21:55 Dose: Infused Documented by: Sodium Chloride () 250 mls @ 15 mls/hr IV .[id number] PRN PRN Reason: Saline Flush Sodium Chloride () 250 mls @ 15 mls/hr IV .[id number] PRN PRN Reason: Additional IVPB Infusion Insulin Human Lispro (Humalog Kwikpen (Bkc)) 0 unit SC TIDAC [facility]; Protocol Last Admin: 09/29/19 06:36 Dose: Not Given Documented by: Magnesium Hydroxide (Milk Of Magnesia) 30 ml PO DAILY PRN PRN Reason: Constipation Melatonin (Melatonin) 3 mg PO QHS PRN PRN PRN Reason: INSOMNIA [facility] Last Admin: 09/28/19 08:06 Dose: 500 mg Documented by: Methylprednisolone (Solu-Medrol) 40 mg IV Q8 [facility] Last Admin: 09/29/19 05:04 Dose: 40 mg Documented by: Morphine Sulfate () 1 - 2 mg IV Q4H PRN PRN PRN Reason: Pain Score 1-10/10 Last Admin: 09/26/19 09:52 Dose: 2 mg Documented by: Nicotine Polacrilex ([place] Nicotine ([facility])) 2 - 4 mg PO Q2H PRN PRN PRN Reason: Nicotine Craving Nutritional Formula (Lactose Free) (Ensure Clear) 120 ml PO 4X/DAY [facility] Last Admin: 09/28/19 21:40 Dose: 120 ml Documented by: Ondansetron HCl (Zofran) 4 mg IV Q8H PRN PRN PRN Reason: NAUSEA/VOMITING Promethazine HCl (Phenergan) 6.25 mg IV Q4H PRN PRN PRN Reason: NAUSEA/VOMITING Quetiapine Fumarate (Seroquel) 50 mg PO QHS [facility] Last Admin: 09/28/19 21:27 Dose: 50 mg Documented by: Sodium Chloride () 10 - 40 ml IV UD PRN PRN Reason: SALINE FLUSH Last Admin: 09/29/19 05:04 Dose: 10 ml Documented by: Throat Lozenges (Cepacol Sore Throat Lozenge) 1 lozenge MUCOUS MEM Q2H PRN PRN PRN Reason: Sore throat or cough Last Admin: 09/27/19 06:39 Dose: 1 lozenge Documented by: Venlafaxine HCl (Effexor Xr) 75 mg PO DAILY [facility] Last Admin: 09/28/19 08:07 Dose: 75 mg Documented by: Medical Necessity - Tobacco Use Smoking Status: Current every day smoker Tobacco Use: Cigarettes Route of nutrition/ use of supplements: [] Nutritional Intake: [] IV Site: [] Larios Catheter: [] - Assessment/Plan Community-acquired pneumonia with diffuse bilateral infiltrates. Microbiological data remains nondiagnostic. I agree with a diagnostic bronchoscopy which is scheduled later today. Continue ceftriaxone plus azithromycin for now.
--- NOTE | 2019-09-29 11:17 | CASEMGMT ---
Addendum entered by Natalia Cerna 09/29/19 14:07: Call placed to Maya @ [facility]. She states they are able to accept pt but she is still awaiting pt's PCP to give the approval that they will cover/follow this pt for HHC. Maya given [employer] CM's number, Olga's contact number to contact once approval has been received. Addendum entered by Natalia Cerna 09/29/19 12:02: Maya @ [facility] made aware unsure of discharge date at this time, but that she may be discharged over the weekend. [facility] Certificate of Medical Necessity for HHC form faxed to [facility] at this time. Original Note: KELIN REINOSO NOTE: Call placed to [facility]. They are in network w/[facility], but they are not taking any new therapy cases at this time. Call placed to [facility] and spoke with Maya. She states they are in network with [facility] and do cover the [facility]. She inquired about pt's PCP and made aware pt goes to [facility] and sees Michael IZAGUIRRE. She states they will reach out to them to inquire if they will follow pt/write orders for [facility] for this pt. Referral packet faxed to [facility] at this time. Maya states [facility] requires [id number] documentation. Will fax to [place] once it is available. [facility]: PH: [phone] Svitlana ROMERO RN, CM
--- NOTE | 2019-09-29 11:20 | NURSING ---
pt off unit
[2019-09-29 12:05] LABS: Bedside Glucose 133 mg/dL (70-110)
[2019-09-29] MEDS: Lactated Ringers 1,000 ML 100 ML IV (12:23)
--- NOTE | 2019-09-29 13:09 | OP.BRONCH_ITS ---
Patient Name: Jo-Ann Hector Procedure Date: 09/29/2019 12:42 PM Date of : 1965 Age: 53 Procedure: Bronchoscopy Indications: Bilateral infiltrate Providers: Eddie Irene MD Referring MD: Breanne Mayberry Medicines: Monitored Anesthesia Care Complications: No immediate complications Procedure: Pre-Anesthesia Assessment: - A History and Physical has been performed. Patient meds and allergies have been reviewed. The risks and benefits of the procedure and the sedation options and risks were discussed with the patient. All questions were answered and informed consent was obtained. Patient identification and proposed procedure were verified prior to the procedure by the physician and the nurse in the procedure room. Mental Status Examination: alert and oriented. Airway Examination: normal oropharyngeal airway. Respiratory Examination: poor air movement. CV Examination: RRR, no murmurs, no S3 or S4. ASA Grade Assessment: II - A patient with mild systemic disease. After reviewing the risks and benefits, the patient was deemed in satisfactory condition to undergo the procedure. The anesthesia plan was to use monitored anesthesia care (MAC). Immediately prior to administration of medications, the patient was re-assessed for adequacy to receive sedatives. The heart rate, respiratory rate, oxygen saturations, blood pressure, adequacy of pulmonary ventilation, and response to care were monitored throughout the procedure. The physical status of the patient was re-assessed after the procedure. After I obtained informed consent, the scope was passed under direct vision. Throughout the procedure, the patient's blood pressure, pulse, and oxygen saturations were monitored continuously. The bronchoscope was introduced through the mouth and advanced to the tracheobronchial tree. The procedure was accomplished without difficulty. The patient tolerated the procedure well. Findings: The oropharynx appears normal. The larynx appears normal. The vocal cords appear normal. The subglottic space is normal. The trachea is of normal caliber. The tona is sharp. The tracheobronchial tree was examined to at least the first subsegmental level. Bronchial mucosa and anatomy are normal; there are no endobronchial lesions. Bilateral Lung Abnormalities: Scant, mucopurulent, thick secretions were found throughout the tracheobronchial tree. They were not obstructing the airway. BAL was performed in the lingula of the lung and sent for cell count, bacterial culture, viral smears & culture. 50 mL of fluid were instilled. 25 mL were returned. The return was turbid. There were no mucoid plugs in the return fluid. BAL was performed in the right lower lobe of the lung and sent for cell count, bacterial culture, viral smears & culture. 40 mL of fluid were instilled. 20 mL were returned. The return was purulent. There were no mucoid plugs in the return fluid. Impression: - Bilateral infiltrate - The airway examination was normal. - Scant, mucopurulent, thick secretions were found throughout the tracheobronchial tree. - Bronchoalveolar lavage was performed in the lingula. - Bronchoalveolar lavage was performed in the right lower lobe Recommendation: - Await BAL results. Procedure Code(s): --- Professional --- 96924, Bronchoscopy, rigid or flexible, including fluoroscopic guidance, when performed; with bronchial alveolar lavage [id number], Bronchoscopy, rigid or flexible, including fluoroscopic guidance, when performed; with bronchial alveolar lavage Diagnosis Code(s): --- Professional --- R91.8, Other nonspecific abnormal finding of lung field R09.89, Other specified symptoms and signs involving the circulatory and respiratory systems CPT copyright 2017 [employer]. All rights reserved. The codes documented in this report are preliminary and upon care associate review may be revised to meet current compliance requirements. DO Eddie Minaya MD 09/29/2019 1:08:10 PM This report has been signed electronically. Number of Addenda: 0 Note Initiated On: 09/29/2019 12:42 PM
[2019-09-29 13:20] LABS: Cytology, Washings SEE PATHOLOGY REPORT
[2019-09-29 13:23] LABS: Cytology, Washings SEE PATHOLOGY REPORT
[2019-09-29 13:30] LABS: Bedside Glucose 130 mg/dL (70-110)
--- NOTE | 2019-09-29 13:54 | PN_ITS ---
Patient Problems: Active and Suspected Problems Sepsis (Acute) Pneumonia (Acute) Frequent falls (Acute) Subjective: Patient seen and examined. Reports continued shortness of breath. Also complains of headache. Patient states she is not able to cough up sputum. Denies fever, chills. - Physical Exam Vitals/I&O's: Vital Signs Temp Pulse Resp BP Pulse Ox 98.0 F 87 16 123/87 H 92 09/29/19 13:28 09/29/19 13:28 09/29/19 13:28 09/29/19 13:28 09/29/19 13:20 Oxygen Flow Rate (L/min) 4 Oxygen Delivery Method Simple Mask Weight: 210 lb 1.608 oz Body Mass Index (BMI) 36.0 Finger Stick Blood Glucose 157 Intake and Output for Last 24 Hours 09/27/19 09/28/19 09/29/19 23:59 23:59 23:59 Intake Total 4796.67 / 4796.67 2725.41 / 2725.41 1618.75 / 1618.75 Output Total 850 / 850 800 / 800 1800 / 1800 Balance 3946.67 / 3946.67 1925.41 / 1925.41 -181.25 / -181.25 General: Alert, Oriented x3, Cooperative HEENT: Atraumatic, PERRLA, EOMI, Normocephalic Neck: Supple, No JVD, Negative Carotid Bruits Lungs: Clear to auscultation, Diminished Cardiovascular: Regular rate, Regular Rhythm, Normal S1, Normal S2, No murmurs Abdomen: Bowel Sounds Present, Soft, Non Tender, Non-Distended, Obese Extremities: No clubbing, No cyanosis, No edema, Capillary Refill Less than 3 Seconds Skin: No rashes, No breakdown Musculoskeletal: No Tenderness to Palpation of Joints or Extremities Neurological: Cranial nerves II-XII grossly intact, Neuro grossly intact Psych/Mental Status: Normal Affect, Appropriate Microbiology Past 72 Hours 09/27/19 08:58 Sputum, Expectorated/Coughed Gram Stain - Final 09/27/19 08:58 Sputum, Expectorated/Coughed Respiratory Culture - Final 09/25/19 19:05 Blood Culture (Wb) - Left Hand Blood Culture - Preliminary No growth in 48 hours. 09/25/19 19:35 Blood Culture (Wb) - Left Wrist Blood Culture - Preliminary No growth in 48 hours. Laboratory Results 09/28/19 13:56: PT 14.4, INR 1.1 09/28/19 15:48: POC Glucose 139 H 09/28/19 22:57: POC Glucose 191 H 09/29/19 06:33: POC Glucose 128 H 09/29/19 12:02: POC Glucose 133 H 09/29/19 12:45: Fluid Source Pending, Fluid Color Pending, Fluid Appearance Pending, Fluid WBC Pending, Fluid RBC Pending, Fluid Tot Cell Count Pending, Fl Pathologist Comment Pending, Fluid Comment 2 Pending 09/29/19 12:45: Miscellaneous Cytology Pending 09/29/19 12:45: Miscellaneous Cytology Pending 09/29/19 12:45: Fluid Source Pending, Fluid Color Pending, Fluid Appearance Pending, Fluid WBC Pending, Fluid RBC Pending, Fluid Tot Cell Count Pending, Fl Pathologist Comment Pending, Fluid Comment 2 Pending 09/29/19 13:25: POC Glucose 130 H Current Medications Acetaminophen (Tylenol) 650 mg PO Q6H PRN PRN PRN Reason: Non-cardiac pain (4-10/10) Last Admin: 09/27/19 20:01 Dose: 650 mg Documented by: Hydrocodone Bitart/Acetaminophen ([place] 5mg-325mg) 1 - 2 tablet PO Q4H PRN PRN PRN Reason: Pain Score 4-10/10 Last Admin: 09/28/19 17:53 Dose: 2 tablet Documented by: Al Hydroxide/Mg Hydroxide (Mylanta Ii) 15 - 30 ml PO Q4H PRN PRN PRN Reason: INDIGESTION Albuterol Sulfate (Ventolin Aerosols) 2.5 mg INHALATION Q2H PRN PRN PRN Reason: dyspnea, wheezing Albuterol/Ipratropium (Duoneb) 3 ml INHALATION Q4HWA.RT [facility] Last Admin: 09/29/19 11:10 Dose: 3 ml Documented by: Dextrose (D50w Syringe) 0 gm IV X1 PRN; Protocol PRN Reason: Hypoglycemia Diphenhydramine HCl (Benadryl) 25 mg PO DAILY PRN PRN PRN Reason: ALLERGIES Enoxaparin Sodium (Lovenox) 40 mg SC DAILY [facility] Last Admin: 09/28/19 08:07 Dose: 40 mg Documented by: Famotidine (Pepcid) 20 mg PO BID [facility] Last Admin: 09/28/19 21:27 Dose: 20 mg Documented by: Gabapentin (Neurontin) 800 mg PO BID [facility] Last Admin: 09/28/19 21:27 Dose: 800 mg Documented by: Glucagon () 1 mg IM .X1 PRN PRN Reason: Hypoglycemia Guaifenesin (Robitussin) 20 ml PO Q4H PRN PRN PRN Reason: COUGH Hydralazine HCl (Apresoline Iv) 10 mg IV Q4H PRN PRN PRN Reason: SBP > 160 Sodium Chloride () 1,000 mls @ 75 mls/hr IV .[id number] [facility] Last Infusion: 09/29/19 09:30 Dose: 0 mls/hr Documented by: Azithromycin 500 mg/ Dextrose 255 mls @ 250 mls/hr IV Q24@2200 [facility] Last Infusion: 09/28/19 23:55 Dose: Infused Documented by: Ceftriaxone Sodium 2 gm/ (Sodium Chloride) 50 mls @ 100 mls/hr IV Q24H [facility] Stop: 10/02/19 22:29 Last Infusion: 09/28/19 21:55 Dose: Infused Documented by: Sodium Chloride () 250 mls @ 15 mls/hr IV .[id number] PRN PRN Reason: Saline Flush Sodium Chloride () 250 mls @ 15 mls/hr IV .[id number] PRN PRN Reason: Additional IVPB Infusion Lactated Ringer's () 1,000 mls @ 100 mls/hr IV .Q10H [facility] Last Infusion: 09/29/19 13:40 Dose: Infused Documented by: Insulin Human Lispro (Humalog Kwikpen (Bkc)) 0 unit SC TIDAC [facility]; Protocol Last Admin: 09/29/19 06:36 Dose: Not Given Documented by: Magnesium Hydroxide (Milk Of Magnesia) 30 ml PO DAILY PRN PRN Reason: Constipation Melatonin (Melatonin) 3 mg PO QHS PRN PRN PRN Reason: INSOMNIA Metformin HCl (Glucophage Xr) 500 mg PO DAILYCM [facility] Last Admin: 09/28/19 08:06 Dose: 500 mg Documented by: Methylprednisolone (Solu-Medrol) 40 mg IV Q8 [facility] Last Admin: 09/29/19 05:04 Dose: 40 mg Documented by: Morphine Sulfate () 1 - 2 mg IV Q4H PRN PRN PRN Reason: Pain Score 1-10/10 Last Admin: 09/26/19 09:52 Dose: 2 mg Documented by: Nicotine Polacrilex ([place] Nicotine (Bkc)) 2 - 4 mg PO Q2H PRN PRN PRN Reason: Nicotine Craving Nutritional Formula (Lactose Free) (Ensure Clear) 120 ml PO 4X/DAY [facility] Last Admin: 09/29/19 11:39 Dose: Not Given Documented by: Ondansetron HCl (Zofran) 4 mg IV Q8H PRN PRN PRN Reason: NAUSEA/VOMITING Promethazine HCl (Phenergan) 6.25 mg IV Q4H PRN PRN PRN Reason: NAUSEA/VOMITING Quetiapine Fumarate (Seroquel) 50 mg PO QHS [facility] Last Admin: 09/28/19 21:27 Dose: 50 mg Documented by: Sodium Chloride () 10 - 40 ml IV UD PRN PRN Reason: SALINE FLUSH Last Admin: 09/29/19 05:04 Dose: 10 ml Documented by: Throat Lozenges (Cepacol Sore Throat Lozenge) 1 lozenge MUCOUS MEM Q2H PRN PRN PRN Reason: Sore throat or cough Last Admin: 09/27/19 06:39 Dose: 1 lozenge Documented by: Venlafaxine HCl (Effexor Xr) 75 mg PO DAILY [facility] Last Admin: 09/28/19 08:07 Dose: 75 mg Documented by: Medical Necessity - Tobacco Use Smoking Status: Current every day smoker Tobacco Use: Cigarettes Assessment/Plan All Active Problems Sepsis (Acute) Pneumonia (Acute) Frequent falls (Acute) 1. Acute hypoxic respiratory failure secondary to community-acquired pneumonia and COPD exacerbation-CT of chest demonstrates bilateral pneumonia. Pulmonary medicine and infectious disease following. Patient underwent bronchoscopy this morning, cultures pending. Continue azithromycin and Rocephin pending cultures. Albuterol and DuoNeb aerosols. IV Solu-Medrol. Respiratory panel negative. Sputum culture shows normal respiratory ninfa. Continue supplement oxygen to maintain O2 sat above 90%. Walking pulse ox prior to discharge. Encouraged IS use. 2. Sepsis secondary to community-acquired pneumonia-continue current treatment as noted above. 3. Tobacco dependence-encouraged cessation. 4. Type 2 diabetes mellitus-oral regimen on hold. Accu-Cheks ACHS with sliding scale insulin. 5. Anxiety/depression-continue home venlafaxine, Seroquel regimen. 6. Obesity-encouraged diet lifestyle medications. DVT prophylaxis-Lovenox subcu This patient was seen by NADEGE Ward under the supervision of Dr. Marie.
[2019-09-29 14:20] LABS: Appearance/Body Fluid CLOUDY; Color/Body Fluid PINK; Source- Body Fluid BRONCHIAL LAVAGE
[2019-09-29 14:23] LABS: Red Cell Count/Body Fluid 1820 /mm3; White Blood Count/Body Fluid 270 /mm3
[2019-09-29] MEDS: HYDROcodone Bitartrate/Apap 5/325 Tablet PO ×2 (14:38→22:34)
[2019-09-29] MEDS: Gabapentin 800 MG Tablet PO ×2 (14:39→22:25)
[2019-09-29] MEDS: Famotidine 20 MG Tablet PO ×2 (14:39→22:25)
[2019-09-29] MEDS: metFORMIN (XR) 500 MG Tablet PO (14:39)
[2019-09-29] MEDS: Venlafaxine XR 75 MG Capsule PO (14:39)
[2019-09-29] MEDS: Ensure Clear 120 ML Liquid PO ×3 (14:40→22:33)
[2019-09-29 14:44] LABS: Macrophages 95 %; Neutrophil (Segs) 5 %
[2019-09-29 14:45] LABS: Body Fluid QC Type(s) BF2Q,BF3Q
[2019-09-29] MEDS: Lidocaine 2% Jelly 1 APPLIC Tube (14:47)
[2019-09-29 14:50] LABS: Bedside Glucose 111 mg/dL (70-110)
--- NOTE | 2019-09-29 15:52 | CASEMGMT ---
Green sheet left on chart for home oxygen testing and HHC at this time. Marti NEVILLE CM
[2019-09-29 16:55] LABS: Bedside Glucose 137 mg/dL (70-110)
[2019-09-29] MEDS: QUEtiapine 25 MG Tablet 50 MG PO (22:25)
[2019-09-30] VITALS (11 sets, daily range): BP systolic 114–153; BP diastolic 61–94; PULSE 69–87; RESP 16–20; TEMP 36.1–36.9; O2SAT 92–97
[2019-09-30] MEDS: 0.9% Normal Saline 1,000 ML 75 ML IV ×2 (03:08→15:00)
[2019-09-30 06:36] LABS: Bedside Glucose 126 mg/dL (70-110)
[2019-09-30] MEDS: Ipratropium/Albuterol Sulfate 3 ML AMPUL.NEB INHALATION ×4 (07:02→19:17)
--- NOTE | 2019-09-30 07:46 | PN_ITS ---
Patient Problems: Active and Suspected Problems Sepsis (Acute) Pneumonia (Acute) Frequent falls (Acute) Subjective: The patient was seen and examined at the bedside this morning. Events from the last 24 hours have been reviewed. The patient is currently afebrile, hemodynamically stable and maintaining appropriate oxygen saturations on 3 L/min via nasal cannula. The patient did undergo bronchoscopy yesterday with bronchial alveolar lavage completed within the lingula and right lower lobe. However, I was notified by laboratory personnel that a mistake was made and that the lingula BAL was only forwarded to cytology. Objective: The patient's most recent lab work, culture data and imaging studies have all been personally reviewed. Respiratory viral panel was negative. Strep and urine Legionella antigens were negative. Blood cultures have shown no growth to date. - Physical Exam Vitals/I&O's: Vital Signs Temp Pulse Resp BP Pulse Ox 98.2 F 69 16 114/61 96 09/30/19 02:00 09/30/19 02:00 09/30/19 02:00 09/30/19 02:00 09/30/19 02:00 Oxygen Flow Rate (L/min) [ 4 AMBULATION with Oxygen] Oxygen Flow Rate (L/min) [At 0 REST on Room Air] Oxygen Flow Rate (L/min) 3.5 Oxygen Delivery Method Nasal Cannula Weight: 210 lb 1.608 oz Body Mass Index (BMI) 36.0 Finger Stick Blood Glucose 157 Intake and Output for Last 24 Hours 09/28/19 09/29/19 09/30/19 23:59 23:59 23:59 Intake Total 2725.41 / 2725.41 2028.75 / 2488.75 1885 / 1885 Output Total 800 / 800 2200 / 2750 850 / 850 Balance 1925.41 / 1925.41 -171.25 / -261.25 1035 / 1035 General: Alert, Cooperative, No apparent distress HEENT: Atraumatic, PERRLA, Normocephalic Oral: No Gingival or Mucosal Lesions/ Ulcerations Neck: Supple, No Nodes, Trachea Midline Lungs: Diminished Cardiovascular: Regular rate, Regular Rhythm, Normal S1, Normal S2, No murmurs Abdomen: Bowel Sounds Present, Soft, Non Tender, Obese Extremities: No clubbing, No cyanosis, No edema Skin: No breakdown Musculoskeletal: No Tenderness to Palpation of Joints or Extremities, No Muscle Wasting Lymphatic: No Cervical, Supraclavicular, or Inguinal Adenopathy Neurological: Cranial nerves II-XII grossly intact, Neuro grossly intact Psych/Mental Status: Alert and oriented to time, place, person, mood and affect Labs (Last 48 Hours) 09/28/19 09/28/19 09/28/19 11:22 11:26 13:56 PT 14.4 INR 1.1 B-Natriuretic Peptide 217.4 H Fluid Source Fluid Color Fluid Appearance Fluid WBC Fluid RBC Fluid Tot Cell Count Fld Polynuclear WBCs # Fld Polynuclear WBCs % Fluid Mononuclear WBCs Fld Mononuclear WBCs % Fluid Neutrophils Fluid Lymphocytes Fluid Monocytes Fluid Plasma Cells Fluid Macrophages Fld Mesothelial Cells Fluid Other Cells Fl Pathologist Comment Fluid Comment 2 Miscellaneous Cytology POC Glucose 159 H 09/28/19 09/28/19 09/29/19 15:48 22:57 06:33 PT INR B-Natriuretic Peptide Fluid Source Fluid Color Fluid Appearance Fluid WBC Fluid RBC Fluid Tot Cell Count Fld Polynuclear WBCs # Fld Polynuclear WBCs % Fluid Mononuclear WBCs Fld Mononuclear WBCs % Fluid Neutrophils Fluid Lymphocytes Fluid Monocytes Fluid Plasma Cells Fluid Macrophages Fld Mesothelial Cells Fluid Other Cells Fl Pathologist Comment Fluid Comment 2 Miscellaneous Cytology POC Glucose 139 H 191 H 128 H 09/29/19 09/29/19 09/29/19 12:02 12:45 12:45 PT INR B-Natriuretic Peptide Fluid Source Cancelled Fluid Color Cancelled Fluid Appearance Cancelled Fluid WBC Cancelled Fluid RBC Cancelled Fluid Tot Cell Count Cancelled Fld Polynuclear WBCs # Cancelled Fld Polynuclear WBCs % Cancelled Fluid Mononuclear WBCs Cancelled Fld Mononuclear WBCs % Cancelled Fluid Neutrophils Cancelled Fluid Lymphocytes Cancelled Fluid Monocytes Cancelled Fluid Plasma Cells Cancelled Fluid Macrophages Cancelled Fld Mesothelial Cells Cancelled Fluid Other Cells Cancelled Fl Pathologist Comment Cancelled Fluid Comment 2 Cancelled Miscellaneous Cytology Pending POC Glucose 133 H 09/29/19 09/29/19 09/29/19 12:45 12:45 13:25 PT INR B-Natriuretic Peptide Fluid Source BRONCHIAL LAVAGE Fluid Color PINK Fluid Appearance CLOUDY Fluid WBC 270 Fluid RBC 1820 Fluid Tot Cell Count Not Reportable Fld Polynuclear WBCs # Fld Polynuclear WBCs % Fluid Mononuclear WBCs Fld Mononuclear WBCs % Fluid Neutrophils 5 Fluid Lymphocytes Fluid Monocytes Fluid Plasma Cells Fluid Macrophages 95 Fld Mesothelial Cells Fluid Other Cells Fl Pathologist Comment May follow Fluid Comment 2 Not Reportable Miscellaneous Cytology Pending POC Glucose 130 H 09/29/19 09/29/19 09/30/19 14:36 16:39 06:30 PT INR B-Natriuretic Peptide Fluid Source Fluid Color Fluid Appearance Fluid WBC Fluid RBC Fluid Tot Cell Count Fld Polynuclear WBCs # Fld Polynuclear WBCs % Fluid Mononuclear WBCs Fld Mononuclear WBCs % Fluid Neutrophils Fluid Lymphocytes Fluid Monocytes Fluid Plasma Cells Fluid Macrophages Fld Mesothelial Cells Fluid Other Cells Fl Pathologist Comment Fluid Comment 2 Miscellaneous Cytology POC Glucose 111 H 137 H 126 H Microbiology 09/29/19 12:45 Wash - Right Lower Lobe Gram Stain - Final 09/27/19 08:58 Sputum, Expectorated/Coughed Gram Stain - Final 09/27/19 08:58 Sputum, Expectorated/Coughed Respiratory Culture - Final 09/25/19 19:05 Blood Culture (Wb) - Left Hand Blood Culture - Preliminary No growth in 48 hours. 09/25/19 19:35 Blood Culture (Wb) - Left Wrist Blood Culture - Preliminary No growth in 48 hours. Clinical Impression(s) from Imaging Studies Brain CT 09/25/19 16:42 IMPRESSION: No acute intracranial abnormalities Electronically Signed: Roderick Holt MD at 18:05 EST , Service support , Chest X-Ray 09/25/19 16:43 IMPRESSION: Increased opacification the right lung base since the previous study suggests worsening atelectasis or infiltrate. Follow-up recommended to assure resolution Electronically Signed: Roderick Holt MD at 18:07 EST , Service support , Chest X-Ray 09/28/19 05:55 IMPRESSION: Enlarging heterogeneous airspace consolidations probably representing pneumonia. Electronically Signed: Katrina Goldman MD at 6:56 EST , Service support , Chest CT 09/28/19 11:13 IMPRESSION: Bilateral probable pneumonic infiltrates with a few mildly reactive mediastinal lymph nodes and trace right pleural effusion. Electronically Signed: Roderick Mejia MD at 15:52 EST , Service support , Chest X-Ray 09/29/19 05:55 IMPRESSION: Bilateral pneumonic alveolar infiltrates again noted, with possible mild improvement on the left. Electronically Signed: Roderick Mejia MD at 12:06 EST , Service support , Current Medications Acetaminophen (Tylenol) 650 mg PO Q6H PRN PRN PRN Reason: Non-cardiac pain (4-10/10) Last Admin: 09/27/19 20:01 Dose: 650 mg Documented by: Hydrocodone Bitart/Acetaminophen ([place] 5mg-325mg) 1 - 2 tablet PO Q4H PRN PRN PRN Reason: Pain Score 4-10/10 Last Admin: 09/29/19 22:34 Dose: 2 tablet Documented by: Al Hydroxide/Mg Hydroxide (Mylanta Ii) 15 - 30 ml PO Q4H PRN PRN PRN Reason: INDIGESTION Albuterol Sulfate (Ventolin Aerosols) 2.5 mg INHALATION Q2H PRN PRN PRN Reason: dyspnea, wheezing Albuterol/Ipratropium (Duoneb) 3 ml INHALATION Q4HWA.RT [facility] Last Admin: 09/30/19 07:02 Dose: 3 ml Documented by: Dextrose (D50w Syringe) 0 gm IV X1 PRN; Protocol PRN Reason: Hypoglycemia Diphenhydramine HCl (Benadryl) 25 mg PO DAILY PRN PRN PRN Reason: ALLERGIES Enoxaparin Sodium (Lovenox) 40 mg SC DAILY [facility] Last Admin: 09/29/19 14:39 Dose: Not Given Documented by: Famotidine (Pepcid) 20 mg PO BID [facility] Last Admin: 09/29/19 22:25 Dose: 20 mg Documented by: Gabapentin (Neurontin) 800 mg PO BID [facility] Last Admin: 09/29/19 22:25 Dose: 800 mg Documented by: Glucagon () 1 mg IM .X1 PRN PRN Reason: Hypoglycemia Guaifenesin (Robitussin) 20 ml PO Q4H PRN PRN PRN Reason: COUGH Hydralazine HCl (Apresoline Iv) 10 mg IV Q4H PRN PRN PRN Reason: SBP > 160 Sodium Chloride () 1,000 mls @ 75 mls/hr IV .[id number] [facility] Last Admin: 09/30/19 03:08 Dose: 75 mls/hr Documented by: Azithromycin 500 mg/ Dextrose 255 mls @ 250 mls/hr IV Q24@2200 [facility] Last Infusion: 09/30/19 00:41 Dose: Infused Documented by: Ceftriaxone Sodium 2 gm/ (Sodium Chloride) 50 mls @ 100 mls/hr IV Q24H [facility] Stop: 10/02/19 22:29 Last Infusion: 09/29/19 23:39 Dose: Infused Documented by: Sodium Chloride () 250 mls @ 15 mls/hr IV .[id number] PRN PRN Reason: Saline Flush Sodium Chloride () 250 mls @ 15 mls/hr IV .[id number] PRN PRN Reason: Additional IVPB Infusion Insulin Human Lispro (Humalog Kwikpen ([facility])) 0 unit SC TIDAC [facility]; Protocol Last Admin: 09/30/19 06:30 Dose: Not Given Documented by: Magnesium Hydroxide (Milk Of Magnesia) 30 ml PO DAILY PRN PRN Reason: Constipation Melatonin (Melatonin) 3 mg PO QHS PRN PRN PRN Reason: INSOMNIA [facility] Last Admin: 09/29/19 14:39 Dose: 500 mg Documented by: Methylprednisolone (Solu-Medrol) 40 mg IV Q8 [facility] Last Admin: 09/30/19 06:27 Dose: 40 mg Documented by: Morphine Sulfate () 1 - 2 mg IV Q4H PRN PRN PRN Reason: Pain Score 1-10/10 Last Admin: 09/26/19 09:52 Dose: 2 mg Documented by: Nicotine Polacrilex ([place] Nicotine (Bk)) 2 - 4 mg PO Q2H PRN PRN PRN Reason: Nicotine Craving Nutritional Formula (Lactose Free) (Ensure Clear) 120 ml PO 4X/DAY [facility] Last Admin: 09/29/19 22:33 Dose: 120 ml Documented by: Ondansetron HCl (Zofran) 4 mg IV Q8H PRN PRN PRN Reason: NAUSEA/VOMITING Promethazine HCl (Phenergan) 6.25 mg IV Q4H PRN PRN PRN Reason: NAUSEA/VOMITING Quetiapine Fumarate (Seroquel) 50 mg PO QHS [facility] Last Admin: 09/29/19 22:25 Dose: 50 mg Documented by: Sodium Chloride () 10 - 40 ml IV UD PRN PRN Reason: SALINE FLUSH Last Admin: 09/29/19 05:04 Dose: 10 ml Documented by: Throat Lozenges (Cepacol Sore Throat Lozenge) 1 lozenge MUCOUS MEM Q2H PRN PRN PRN Reason: Sore throat or cough Last Admin: 09/27/19 06:39 Dose: 1 lozenge Documented by: Venlafaxine HCl (Effexor Xr) 75 mg PO DAILY [facility] Last Admin: 09/29/19 14:39 Dose: 75 mg Documented by: Medical Necessity - Tobacco Use Smoking Status: Current every day smoker Tobacco Use: Cigarettes Assessment/Plan All Active Problems Sepsis (Acute) Pneumonia (Acute) Frequent falls (Acute) RECOMMENDATIONS: 1. Await BAL results. 2. Continue antimicrobials per ID recommendations. 3. Wean supplemental oxygen to maintain saturations at or above 90%. 4. Encourage incentive spirometer use and mobilize patient as tolerated. 5. Continue scheduled bronchodilators and steroids. 6. Recommend formal outpatient pulmonary follow-up with repeat PFTs. IMPRESSIONS: 1. Acute hypoxemic respiratory failure, which appears to be secondary to severe community-acquired pneumonia Given the findings noted on plain film chest x-ray, a CT chest was obtained which did reveal significant bilateral perihilar consolidations with relative sparing of the periphery and some mediastinal adenopathy. Accordingly, the patient underwent bronchoscopy with BAL. Antimicrobials will be continued per ID recommendations. Supplemental oxygen will be weaned and scheduled bronchodilators, along with steroids will be continued. 2. Continuous tobacco dependency Tobacco cessation counseling was provided. Nicotine replacement therapy can be offered to the patient while admitted to the hospital. 3. Obesity/anxiety/depression/diabetes Complicates care, management, recovery and prognosis. Continue home medications as indicated. This note was generated with [employer] software. It may contain incorrect words, spelling, and punctuation that were not noted in checking the note before signing. Code Visit Inpatient E&M: 98814 Subs Hosp L2
[2019-09-30] MEDS: Morphine 2 MG/ML Syringe IV (10:22)
[2019-09-30] MEDS: Gabapentin 800 MG Tablet PO ×2 (10:26→21:46)
[2019-09-30] MEDS: Famotidine 20 MG Tablet PO ×2 (10:26→21:46)
[2019-09-30] MEDS: Enoxaparin 40 MG/0.4 ML Syringe SC (10:26)
[2019-09-30] MEDS: metFORMIN (XR) 500 MG Tablet PO (10:27)
[2019-09-30] MEDS: Venlafaxine XR 75 MG Capsule PO (10:27)
[2019-09-30] MEDS: Ensure Clear 120 ML Liquid PO ×4 (10:30→21:44)
--- NOTE | 2019-09-30 11:13 | CASEMGMT ---
Social Work Attending PCU rounds. Inquired about advanced directives for patient and whether or not patient has decided who to make health care power of sports attorney, patient unsure stating My family is arguing. This licensed social worker encouraging patient to take time in deciding and that it is good to choose someone that is trusted and is aware of patient wished. Patient planning to keep talking to family/friends. Active listening provided. Marlene STEPHENSON, LIZA
[2019-09-30] MEDS: Insulin Lispro 100 UNIT/ML INSULN.PEN SC (11:59)
[2019-09-30] MEDS: HYDROcodone Bitartrate/Apap 5/325 Tablet PO ×3 (12:03→19:17)
[2019-09-30 12:06] LABS: Bedside Glucose 254 mg/dL (70-110)
--- NOTE | 2019-09-30 14:38 | PCM.PROGNOTE ---
Patient Problems: Active and Suspected Problems Sepsis (Acute) Pneumonia (Acute) Frequent falls (Acute) Subjective: Patient seen and examined. She reports generalized body aching. Denies fever, chills. Reports mild improvement in breathing. - Physical Exam Vitals/I&O's: Vital Signs Temp Pulse Resp BP Pulse Ox 98.0 F 75 20 H 144/88 H 93 09/30/19 10:11 09/30/19 10:43 09/30/19 10:43 09/30/19 10:11 09/30/19 10:34 Oxygen Flow Rate (L/min) [ 4 AMBULATION with Oxygen] Oxygen Flow Rate (L/min) [At 0 REST on Room Air] Oxygen Flow Rate (L/min) 2 Oxygen Delivery Method Nasal Cannula Weight: 210 lb 1.608 oz Body Mass Index (BMI) 36.0 Finger Stick Blood Glucose 157 Intake and Output for Last 24 Hours 09/28/19 09/29/19 09/30/19 23:59 23:59 23:59 Intake Total 2725.41 / 2725.41 2028.75 / 2488.75 1885 / 1885 Output Total 800 / 800 2200 / 2750 850 / 850 Balance 1925.41 / 1925.41 -171.25 / -261.25 1035 / 1035 General: Alert, Oriented x3, Cooperative HEENT: Atraumatic, PERRLA, EOMI, Normocephalic Neck: Supple, No JVD, Negative Carotid Bruits Lungs: Clear to auscultation, Diminished Cardiovascular: Regular rate, Regular Rhythm, Normal S1, Normal S2, No murmurs Abdomen: Bowel Sounds Present, Soft, Non Tender, Non-Distended, Obese Extremities: No clubbing, No cyanosis, No edema, Capillary Refill Less than 3 Seconds Skin: No rashes, No breakdown Musculoskeletal: No Tenderness to Palpation of Joints or Extremities Neurological: Cranial nerves II-XII grossly intact, Neuro grossly intact Psych/Mental Status: Normal Affect, Appropriate Microbiology Past 72 Hours 09/29/19 12:45 Wash - Right Lower Lobe Gram Stain - Final 09/29/19 12:45 Wash - Right Lower Lobe Respiratory Culture - Preliminary Culture exhibits no growth. 09/27/19 08:58 Sputum, Expectorated/Coughed Gram Stain - Final 09/27/19 08:58 Sputum, Expectorated/Coughed Respiratory Culture - Final 09/25/19 19:05 Blood Culture (Wb) - Left Hand Blood Culture - Preliminary No growth in 48 hours. 09/25/19 19:35 Blood Culture (Wb) - Left Wrist Blood Culture - Preliminary No growth in 48 hours. Laboratory Results 09/29/19 12:45: Fluid Neutrophils 5, Fluid Macrophages 95 09/29/19 14:36: POC Glucose 111 H 09/29/19 16:39: POC Glucose 137 H 09/30/19 06:30: POC Glucose 126 H 09/30/19 11:57: POC Glucose 254 H Current Medications Acetaminophen (Tylenol) 650 mg PO Q6H PRN PRN PRN Reason: Non-cardiac pain (4-10/10) Last Admin: 09/27/19 20:01 Dose: 650 mg Documented by: Hydrocodone Bitart/Acetaminophen ([place] 5mg-325mg) 1 - 2 tablet PO Q4H PRN PRN PRN Reason: Pain Score 4-10/10 Last Admin: 09/30/19 12:03 Dose: 2 tablet Documented by: Al Hydroxide/Mg Hydroxide (Mylanta Ii) 15 - 30 ml PO Q4H PRN PRN PRN Reason: INDIGESTION Albuterol Sulfate (Ventolin Aerosols) 2.5 mg INHALATION Q2H PRN PRN PRN Reason: dyspnea, wheezing Albuterol/Ipratropium (Duoneb) 3 ml INHALATION Q4HWA.RT [facility] Last Admin: 09/30/19 10:43 Dose: 3 ml Documented by: Dextrose (D50w Syringe) 0 gm IV X1 PRN; Protocol PRN Reason: Hypoglycemia Diphenhydramine HCl (Benadryl) 25 mg PO DAILY PRN PRN PRN Reason: ALLERGIES Enoxaparin Sodium (Lovenox) 40 mg SC DAILY [facility] Last Admin: 09/30/19 10:26 Dose: 40 mg Documented by: Famotidine (Pepcid) 20 mg PO BID [facility] Last Admin: 09/30/19 10:26 Dose: 20 mg Documented by: Gabapentin (Neurontin) 800 mg PO BID [facility] Last Admin: 09/30/19 10:26 Dose: 800 mg Documented by: Glucagon () 1 mg IM .X1 PRN PRN Reason: Hypoglycemia Guaifenesin (Robitussin) 20 ml PO Q4H PRN PRN PRN Reason: COUGH Hydralazine HCl (Apresoline Iv) 10 mg IV Q4H PRN PRN PRN Reason: SBP > 160 Sodium Chloride () 1,000 mls @ 75 mls/hr IV .[id number] [facility] Last Admin: 09/30/19 11:58 Dose: Not Given Documented by: Azithromycin 500 mg/ Dextrose 255 mls @ 250 mls/hr IV Q24@2200 [facility] Last Infusion: 09/30/19 00:41 Dose: Infused Documented by: Ceftriaxone Sodium 2 gm/ (Sodium Chloride) 50 mls @ 100 mls/hr IV Q24H [facility] Stop: 10/02/19 22:29 Last Infusion: 09/29/19 23:39 Dose: Infused Documented by: Sodium Chloride () 250 mls @ 15 mls/hr IV .[id number] PRN PRN Reason: Saline Flush Sodium Chloride () 250 mls @ 15 mls/hr IV .[id number] PRN PRN Reason: Additional IVPB Infusion Insulin Human Lispro (Humalog Kwikpen (Bk)) 0 unit SC TIDAC [facility]; Protocol Last Admin: 09/30/19 11:59 Dose: 3 units Documented by: Magnesium Hydroxide (Milk Of Magnesia) 30 ml PO DAILY PRN PRN Reason: Constipation Melatonin (Melatonin) 3 mg PO QHS PRN PRN PRN Reason: INSOMNIA [facility] Last Admin: 09/30/19 10:27 Dose: 500 mg Documented by: Methylprednisolone (Solu-Medrol) 40 mg IV Q8 [facility] Last Admin: 09/30/19 13:19 Dose: 40 mg Documented by: Morphine Sulfate () 1 - 2 mg IV Q4H PRN PRN PRN Reason: Pain Score 1-10/10 Last Admin: 09/30/19 10:22 Dose: 2 mg Documented by: Nicotine Polacrilex ([place] Nicotine (Bk)) 2 - 4 mg PO Q2H PRN PRN PRN Reason: Nicotine Craving Nutritional Formula (Lactose Free) (Ensure Clear) 120 ml PO 4X/DAY [facility] Last Admin: 09/30/19 13:19 Dose: 120 ml Documented by: Ondansetron HCl (Zofran) 4 mg IV Q8H PRN PRN PRN Reason: NAUSEA/VOMITING Promethazine HCl (Phenergan) 6.25 mg IV Q4H PRN PRN PRN Reason: NAUSEA/VOMITING Quetiapine Fumarate (Seroquel) 50 mg PO QHS [facility] Last Admin: 09/29/19 22:25 Dose: 50 mg Documented by: Sodium Chloride () 10 - 40 ml IV UD PRN PRN Reason: SALINE FLUSH Last Admin: 09/29/19 05:04 Dose: 10 ml Documented by: Throat Lozenges (Cepacol Sore Throat Lozenge) 1 lozenge MUCOUS MEM Q2H PRN PRN PRN Reason: Sore throat or cough Last Admin: 09/27/19 06:39 Dose: 1 lozenge Documented by: Venlafaxine HCl (Effexor Xr) 75 mg PO DAILY [facility] Last Admin: 09/30/19 10:27 Dose: 75 mg Documented by: Medical Necessity - Tobacco Use Smoking Status: Current every day smoker Tobacco Use: Cigarettes Assessment/Plan All Active Problems Sepsis (Acute) Pneumonia (Acute) Frequent falls (Acute) 1. Acute hypoxic respiratory failure secondary to community-acquired pneumonia and COPD exacerbation-CT of chest demonstrates bilateral pneumonia. Pulmonary medicine and infectious disease following. Patient underwent bronchoscopy 09/29/2019, cultures pending. Continue azithromycin and Rocephin pending cultures. Albuterol and DuoNeb aerosols. IV Solu-Medrol. Respiratory panel negative. Sputum culture shows normal respiratory ninfa. Continue supplement oxygen to maintain O2 sat above 90%. Walking pulse ox prior to discharge. Encouraged IS use. Patient will need outpatient follow-up with pulmonary medicine for PFTs and routine follow-up. 2. Sepsis secondary to community-acquired pneumonia-continue current treatment as noted above. 3. Tobacco dependence-encouraged cessation. 4. Type 2 diabetes mellitus-oral regimen on hold. Accu-Cheks ACHS with sliding scale insulin. 5. Anxiety/depression-continue home venlafaxine, Seroquel regimen. 6. Obesity-encouraged diet lifestyle medications. DVT prophylaxis-Lovenox subcu This patient was seen by NADEGE Ward under the supervision of Dr. Marie.
[2019-09-30 17:36] LABS: Bedside Glucose 124 mg/dL (70-110)
[2019-09-30] MEDS: guaiFENesin 10 ML UDC (200MG/10ML) 20 ML PO (21:33)
[2019-09-30] MEDS: 0.9% Saline Lock 10 ML Syringe IV (21:46)
[2019-09-30] MEDS: QUEtiapine 25 MG Tablet 50 MG PO (21:46)
[2019-09-30 23:01] LABS: Bedside Glucose 133 mg/dL (70-110)
[2019-10-01] VITALS (7 sets, daily range): BP systolic 123–155; BP diastolic 78–85; PULSE 71–78; RESP 16–20; TEMP 35.9–36.8; O2SAT 3–97
[2019-10-01] MEDS: 0.9% Normal Saline 1,000 ML 75 ML IV (05:08)
[2019-10-01] MEDS: 0.9% Saline Lock 10 ML Syringe IV (05:09)
[2019-10-01] MEDS: HYDROcodone Bitartrate/Apap 5/325 Tablet PO ×2 (05:14→10:59)
[2019-10-01] MEDS: Ipratropium/Albuterol Sulfate 3 ML AMPUL.NEB INHALATION ×2 (06:30→10:39)
[2019-10-01] MEDS: Insulin Lispro 100 UNIT/ML INSULN.PEN SC ×2 (06:45→11:26)
--- NOTE | 2019-10-01 06:52 | PCM.PN.PUL ---
Patient Problems: Active and Suspected Problems Sepsis (Acute) Pneumonia (Acute) Frequent falls (Acute) Subjective: The patient was seen and examined at the bedside this morning. Events from the last 24 hours have been reviewed. The patient is currently afebrile, hemodynamically stable and maintaining appropriate oxygen saturations on 2 L/min via nasal cannula. The patient does report that she continues to feel better each day. She continues to have some residual shortness of breath and cough, but has not been producing any sputum. She has remained compliant with the use of her pep device and incentive spirometer. Objective: The patient's most recent lab work, culture data and imaging studies have all been personally reviewed. Respiratory viral panel was negative. Strep and urine Legionella antigens were negative. Blood cultures have shown no growth to date. - Physical Exam Vitals/I&O's: Vital Signs Temp Pulse Resp BP Pulse Ox 96.7 F L 71 18 123/78 H 94 10/01/19 03:00 10/01/19 03:00 10/01/19 03:00 10/01/19 03:00 10/01/19 03:00 Oxygen Flow Rate (L/min) [ 4 AMBULATION with Oxygen] Oxygen Flow Rate (L/min) [At 0 REST on Room Air] Oxygen Flow Rate (L/min) 2 Oxygen Delivery Method Nasal Cannula Weight: 210 lb 1.608 oz Body Mass Index (BMI) 36.0 Finger Stick Blood Glucose 157 Intake and Output for Last 24 Hours 09/29/19 09/30/19 10/01/19 23:59 23:59 23:59 Intake Total 2028.75 / 2488.75 3397.50 / 3397.50 630 / 630 Output Total 2200 / 2750 1450 / 1450 900 / 900 Balance -171.25 / -261.25 1947.50 / 1947.50 -270 / -270 General: Alert, Oriented x3, Cooperative, No apparent distress HEENT: Atraumatic, PERRLA, Normocephalic Oral: No Gingival or Mucosal Lesions/ Ulcerations Neck: Supple, No Nodes, Trachea Midline Lungs: - - Right basilar rales. Otherwise clear to auscultation. Cardiovascular: Regular rate, Regular Rhythm, Normal S1, Normal S2, No murmurs Abdomen: Bowel Sounds Present, Soft, Non Tender, Obese Extremities: No clubbing, No cyanosis, No edema Skin: No breakdown Musculoskeletal: No Tenderness to Palpation of Joints or Extremities, No Muscle Wasting Lymphatic: No Cervical, Supraclavicular, or Inguinal Adenopathy Neurological: Cranial nerves II-XII grossly intact, Neuro grossly intact Psych/Mental Status: Alert and oriented to time, place, person, mood and affect Labs (Last 48 Hours) 09/29/19 09/29/19 09/29/19 12:02 12:45 12:45 Fluid Source Cancelled Fluid Color Cancelled Fluid Appearance Cancelled Fluid WBC Cancelled Fluid RBC Cancelled Fluid Tot Cell Count Cancelled Fld Polynuclear WBCs # Cancelled Fld Polynuclear WBCs % Cancelled Fluid Mononuclear WBCs Cancelled Fld Mononuclear WBCs % Cancelled Fluid Neutrophils Cancelled Fluid Lymphocytes Cancelled Fluid Monocytes Cancelled Fluid Plasma Cells Cancelled Fluid Macrophages Cancelled Fld Mesothelial Cells Cancelled Fluid Other Cells Cancelled Fl Pathologist Comment Cancelled Fluid Comment 2 Cancelled Miscellaneous Cytology Pending POC Glucose 133 H 09/29/19 09/29/19 09/29/19 12:45 12:45 13:25 Fluid Source BRONCHIAL [place] Fluid Color PINK Fluid Appearance CLOUDY Fluid WBC 270 Fluid RBC 1820 Fluid Tot Cell Count Not Reportable Fld Polynuclear WBCs # Fld Polynuclear WBCs % Fluid Mononuclear WBCs Fld Mononuclear WBCs % Fluid Neutrophils 5 Fluid Lymphocytes Fluid Monocytes Fluid Plasma Cells Fluid Macrophages 95 Fld Mesothelial Cells Fluid Other Cells Fl Pathologist Comment May follow Fluid Comment 2 Not Reportable Miscellaneous Cytology Pending POC Glucose 130 H 09/29/19 09/29/19 09/30/19 14:36 16:39 06:30 Fluid Source Fluid Color Fluid Appearance Fluid WBC Fluid RBC Fluid Tot Cell Count Fld Polynuclear WBCs # Fld Polynuclear WBCs % Fluid Mononuclear WBCs Fld Mononuclear WBCs % Fluid Neutrophils Fluid Lymphocytes Fluid Monocytes Fluid Plasma Cells Fluid Macrophages Fld Mesothelial Cells Fluid Other Cells Fl Pathologist Comment Fluid Comment 2 Miscellaneous Cytology POC Glucose 111 H 137 H 126 H 09/30/19 09/30/19 09/30/19 11:57 16:51 21:52 Fluid Source Fluid Color Fluid Appearance Fluid WBC Fluid RBC Fluid Tot Cell Count Fld Polynuclear WBCs # Fld Polynuclear WBCs % Fluid Mononuclear WBCs Fld Mononuclear WBCs % Fluid Neutrophils Fluid Lymphocytes Fluid Monocytes Fluid Plasma Cells Fluid Macrophages Fld Mesothelial Cells Fluid Other Cells Fl Pathologist Comment Fluid Comment 2 Miscellaneous Cytology POC Glucose 254 H 124 H 133 H Microbiology 09/29/19 12:45 Wash - Right Lower Lobe Gram Stain - Final 09/29/19 12:45 Wash - Right Lower Lobe Respiratory Culture - Preliminary Culture exhibits no growth. 09/27/19 08:58 Sputum, Expectorated/Coughed Gram Stain - Final 09/27/19 08:58 Sputum, Expectorated/Coughed Respiratory Culture - Final Clinical Impression(s) from Imaging Studies Brain CT 09/25/19 16:42 IMPRESSION: No acute intracranial abnormalities Electronically Signed: Roderick Holt MD at 18:05 EST , Service support , Chest X-Ray 09/25/19 16:43 IMPRESSION: Increased opacification the right lung base since the previous study suggests worsening atelectasis or infiltrate. Follow-up recommended to assure resolution Electronically Signed: Roderick Holt MD at 18:07 EST , Service support , Chest X-Ray 09/28/19 05:55 IMPRESSION: Enlarging heterogeneous airspace consolidations probably representing pneumonia. Electronically Signed: Katrina Goldman MD at 6:56 EST , Service support , Chest CT 09/28/19 11:13 IMPRESSION: Bilateral probable pneumonic infiltrates with a few mildly reactive mediastinal lymph nodes and trace right pleural effusion. Electronically Signed: Roderick Mejia MD at 15:52 EST , Service support , Chest X-Ray 09/29/19 05:55 IMPRESSION: Bilateral pneumonic alveolar infiltrates again noted, with possible mild improvement on the left. Electronically Signed: Roderick Mejia MD at 12:06 EST , Service support , Current Medications Acetaminophen (Tylenol) 650 mg PO Q6H PRN PRN PRN Reason: Non-cardiac pain (4-10/10) Last Admin: 09/27/19 20:01 Dose: 650 mg Documented by: Hydrocodone Bitart/Acetaminophen (Stephenson 5mg-325mg) 1 - 2 tablet PO Q4H PRN PRN PRN Reason: Pain Score 4-10/10 Last Admin: 10/01/19 05:14 Dose: 2 tablet Documented by: Al Hydroxide/Mg Hydroxide (Mylanta Ii) 15 - 30 ml PO Q4H PRN PRN PRN Reason: INDIGESTION Albuterol Sulfate (Ventolin Aerosols) 2.5 mg INHALATION Q2H PRN PRN PRN Reason: dyspnea, wheezing Albuterol/Ipratropium (Duoneb) 3 ml INHALATION Q4HWA.RT [facility] Last Admin: 10/01/19 06:30 Dose: 3 ml Documented by: Dextrose (D50w Syringe) 0 gm IV X1 PRN; Protocol PRN Reason: Hypoglycemia Diphenhydramine HCl (Benadryl) 25 mg PO DAILY PRN PRN PRN Reason: ALLERGIES Enoxaparin Sodium (Lovenox) 40 mg SC DAILY [facility] Last Admin: 09/30/19 10:26 Dose: 40 mg Documented by: Famotidine (Pepcid) 20 mg PO BID [facility] Last Admin: 09/30/19 21:46 Dose: 20 mg Documented by: Gabapentin (Neurontin) 800 mg PO BID [facility] Last Admin: 09/30/19 21:46 Dose: 800 mg Documented by: Glucagon () 1 mg IM .X1 PRN PRN Reason: Hypoglycemia Guaifenesin (Robitussin) 20 ml PO Q4H PRN PRN PRN Reason: COUGH Last Admin: 09/30/19 21:33 Dose: 20 ml Documented by: Hydralazine HCl (Apresoline Iv) 10 mg IV Q4H PRN PRN PRN Reason: SBP > 160 Sodium Chloride () 1,000 mls @ 75 mls/hr IV .[id number] [facility] Last Admin: 10/01/19 05:08 Dose: 75 mls/hr Documented by: Azithromycin 500 mg/ Dextrose 255 mls @ 250 mls/hr IV Q24@2200 [facility] Last Infusion: 10/01/19 00:08 Dose: Infused Documented by: Ceftriaxone Sodium 2 gm/ (Sodium Chloride) 50 mls @ 100 mls/hr IV Q24H [facility] Stop: 10/02/19 22:29 Last Infusion: 09/30/19 22:03 Dose: Infused Documented by: Sodium Chloride () 250 mls @ 15 mls/hr IV .[id number] PRN PRN Reason: Saline Flush Sodium Chloride () 250 mls @ 15 mls/hr IV .[id number] PRN PRN Reason: Additional IVPB Infusion Insulin Human Lispro (Humalog Kwikpen (Bkc)) 0 unit SC TIDAC [facility]; Protocol Last Admin: 10/01/19 06:45 Dose: 1 units Documented by: Magnesium Hydroxide (Milk Of Magnesia) 30 ml PO DAILY PRN PRN Reason: Constipation Melatonin (Melatonin) 3 mg PO QHS PRN PRN PRN Reason: INSOMNIA Metformin HCl (Glucophage Xr) 500 mg PO DAILYCM [facility] Last Admin: 09/30/19 10:27 Dose: 500 mg Documented by: Methylprednisolone (Solu-Medrol) 40 mg IV Q8 [facility] Last Admin: 10/01/19 05:09 Dose: 40 mg Documented by: Morphine Sulfate () 1 - 2 mg IV Q4H PRN PRN PRN Reason: Pain Score 1-10/10 Last Admin: 09/30/19 10:22 Dose: 2 mg Documented by: Nicotine Polacrilex (Rugby Nicotine (Bk)) 2 - 4 mg PO Q2H PRN PRN PRN Reason: Nicotine Craving Nutritional Formula (Lactose Free) (Ensure Clear) 120 ml PO 4X/DAY [facility] Last Admin: 09/30/19 21:44 Dose: 120 ml Documented by: Ondansetron HCl (Zofran) 4 mg IV Q8H PRN PRN PRN Reason: NAUSEA/VOMITING Promethazine HCl (Phenergan) 6.25 mg IV Q4H PRN PRN PRN Reason: NAUSEA/VOMITING Quetiapine Fumarate (Seroquel) 50 mg PO QHS [facility] Last Admin: 09/30/19 21:46 Dose: 50 mg Documented by: Sodium Chloride () 10 - 40 ml IV UD PRN PRN Reason: SALINE FLUSH Last Admin: 01/05/20 05:09 Dose: 10 ml Documented by: Throat Lozenges (Cepacol Sore Throat Lozenge) 1 lozenge MUCOUS MEM Q2H PRN PRN PRN Reason: Sore throat or cough Last Admin: 09/27/19 06:39 Dose: 1 lozenge Documented by: Venlafaxine HCl (Effexor Xr) 75 mg PO DAILY [facility] Last Admin: 09/30/19 10:27 Dose: 75 mg Documented by: Medical Necessity - Tobacco Use Smoking Status: Current every day smoker Tobacco Use: Cigarettes Assessment/Plan All Active Problems Sepsis (Acute) Pneumonia (Acute) Frequent falls (Acute) RECOMMENDATIONS: 1. Await finalized BAL results. 2. Continue antimicrobials per ID recommendations. The patient will need to complete a 7-day treatment course of antimicrobials. 3. Wean supplemental oxygen to maintain saturations at or above 90%. I do anticipate a need for home-going supplemental oxygen. 4. Encourage incentive spirometer use and mobilize patient as tolerated. 5. Continue scheduled bronchodilators and steroids. Transition to prednisone 40 mg daily, with plans for taper at discharge. 6. Recommend formal outpatient pulmonary follow-up with repeat PFTs. 7. Perform walking oximetry study prior to consideration for discharge home. 8. Please have the patient follow-up in the pulmonary medicine clinic within 2 weeks of her discharge. IMPRESSIONS: 1. Acute hypoxemic respiratory failure, which appears to be secondary to severe community-acquired pneumonia Given the findings noted on plain film chest x-ray, a CT chest was obtained which did reveal significant bilateral perihilar consolidations with relative sparing of the periphery and some mediastinal adenopathy. Accordingly, the patient underwent bronchoscopy with BAL. Antimicrobials will be continued per ID recommendations, with plans for a total of 7 days of treatment. The patient will be continued on scheduled bronchodilators. Her IV steroids, for my perspective, can be transitioned to prednisone 40 mg daily by mouth, with plans for taper at discharge. I would plan to perform a walking oximetry study prior to consideration for discharge home. I do anticipate a home-going supplemental oxygen need. The patient is agreeable to follow-up in the pulmonary medicine clinic within 2 weeks of her discharge. 2. Continuous tobacco dependency Tobacco cessation counseling was provided. Nicotine replacement therapy can be offered to the patient while admitted to the hospital. 3. Obesity/anxiety/depression/diabetes Complicates care, management, recovery and prognosis. Continue home medications as indicated. This note was generated with [employer] software. It may contain incorrect words, spelling, and punctuation that were not noted in checking the note before signing. Code Visit Inpatient E&M: 56306 Subs Hosp L2
[2019-10-01 06:55] LABS: Bedside Glucose 152 mg/dL (70-110)
--- NOTE | 2019-10-01 08:53 | OT ---
Pt given demo and verbal instruction on the use of AE for LB dressing. Pt required SBA with return demo, Pt reviewed and given hand out on walker safety.
[2019-10-01] MEDS: Venlafaxine XR 75 MG Capsule PO (09:04)
[2019-10-01] MEDS: Enoxaparin 40 MG/0.4 ML Syringe SC (09:05)
[2019-10-01] MEDS: metFORMIN (XR) 500 MG Tablet PO (09:05)
[2019-10-01] MEDS: Famotidine 20 MG Tablet PO (09:05)
[2019-10-01] MEDS: Gabapentin 800 MG Tablet PO (09:05)
[2019-10-01] MEDS: Ensure Clear 120 ML Liquid PO (09:06)
--- NOTE | 2019-10-01 11:10 | DCINST_ITS ---
- Discharge Diagnoses Current Active Problems: Current Active and Chronic Problems Sepsis (Acute) Pneumonia (Acute) Tobacco use (Chronic) Anxiety and depression (Chronic) You will use the following diet at home:: Calorie/Carbohydrate Controlled (specify 1200, 1400, etc) Discharge Activity: Return to Normal Activity Call your doctor if you observe: Fever of 101 or Higher, Shortness of breath Allergies/Adverse Reactions: Allergies No Known Allergies Allergy (Verified 09/25/19 16:28) Medications to take at Discharge Gabapentin [Neurontin] 800 mg PO BID 09/01/19 Metformin HCl [Glucophage Xr] 500 mg PO DAILY 09/01/19 Quetiapine Fumarate [Seroquel] 50 mg PO QHS 09/01/19 Diphenhydramine HCl [Benadryl Allergy] 25 mg PO DAILY PRN PRN 09/25/19 Ibuprofen 600 mg PO TID #30 tab 09/25/19 Sumatriptan Succinate [Imitrex] 100 mg PO .X1 PRN 09/25/19 Venlafaxine HCl [Venlafaxine HCl ER] 75 mg PO DAILY 09/25/19 Albuterol Aerosols [Ventolin Aerosols] 2.5 mg INHALATION Q2H PRN PRN #120 vial.neb. 10/01/19 Levofloxacin [Levaquin] 750 mg PO DAILY #3 tab 10/01/19 Prednisone See Taper PO DAILY #30 tab 10/01/19 The following prescriptions were given: Levofloxacin [Levaquin] 750 mg PO DAILY #3 tab Transmission Status: Pending to [id number] Prednisone See Taper PO DAILY #30 tab Transmission Status: Pending to [facility][id number] Albuterol Aerosols [Ventolin Aerosols] 2.5 mg INHALATION Q2H PRN PRN #120 vial.neb. PRN Reason: Shortness Of Breath Transmission Status: Pending to [facility][id number] Primary Care Physician: NOT,DEFINED [NON-STAFF] - Please follow up with your Primary Care Physician in: 1 Week Test Results: Test results from this visit will be discussed in further detail at your follow- up appointment, if applicable. Please Follow Up With: Eddie Irene DO When: within 2 Weeks Proposed Discharge Date: 10/01/19
--- NOTE | 2019-10-01 11:26 | PCA ---
Faxed discharge paperwork to [facility] and left a message for Jenna at [facility] about discharge plan for today.
[2019-10-01 11:35] LABS: Bedside Glucose 264 mg/dL (70-110)
--- NOTE | 2019-10-01 12:13 | PCM.DC.SUM ---
Discharge Date and Diagnosis Date of Admission: 09/25/19 Date of Discharge: 10/01/19 - Primary Discharge Diagnosis Active and Suspected Problems 1. Acute hypoxic respiratory failure secondary to community-acquired pneumonia and COPD exacerbation 2. Sepsis secondary to community-acquired pneumonia 3. Tobacco dependence 4. Type 2 diabetes mellitus 5. Anxiety/depression 6. Obesity - Secondary Discharge Diagnosis Chronic Problems Tobacco use (Chronic) Anxiety and depression (Chronic) History of brain tumor (Chronic) Hospital Course and Treatment Imaging Results: Diagnostic Data Brain CT 09/25/19 16:42 IMPRESSION: No acute intracranial abnormalities Electronically Signed: Roderick Holt MD at 18:05 EST , Service support , Chest CT 09/28/19 11:13 IMPRESSION: Bilateral probable pneumonic infiltrates with a few mildly reactive mediastinal lymph nodes and trace right pleural effusion. Electronically Signed: Roderick Mejia MD at 15:52 EST , Service support , Chest X-Ray 09/29/19 05:55 IMPRESSION: Bilateral pneumonic alveolar infiltrates again noted, with possible mild improvement on the left. Electronically Signed: Roderick Mejia MD at 12:06 EST , Service support , Dr. Irene- Pulmonary Medicine Dr. Fabian- ID Operations: None Procedures: Bronchoscopy Summary of Care Provided: The patient is a 53 year old F admitted 09/25/2019 due to frequent falls, fatigue, dyspnea, cough and fever. 1. Acute hypoxic respiratory failure secondary to community-acquired pneumonia and COPD exacerbation-CT of chest demonstrates bilateral pneumonia. Pulmonary medicine and infectious disease consulted during admission. Patient underwent bronchoscopy 09/29/2019, cultures show no growth, viral culture pending. Completed 7 days of azithromycin and Rocephin. Will discharge on 3 days of oral Levaquin to complete 10 days of antibiotic therapy empirically. Nebulizer with albuterol aerosol prescription given at discharge for as needed use. Transition to prednisone taper at discharge. Respiratory panel negative. Sputum culture shows normal respiratory ninfa. Patient requiring 2 L nasal cannula at rest and with ambulation at discharge and will be discharged with supplemental oxygen. Continue supplement oxygen to maintain O2 at or above 90%. She is ambulatory in the home. Follow-up with pulmonary medicine, Dr. Irene in 2 weeks. 2. Sepsis secondary to community-acquired pneumonia-sepsis resolved. Treatment as noted above. 3. Tobacco dependence-encouraged cessation. 4. Type 2 diabetes mellitus-continue home oral regimen. 5. Anxiety/depression-continue home venlafaxine, Seroquel regimen. 6. Obesity-encouraged diet lifestyle medications. General: Alert, Oriented x3, Cooperative HEENT: Atraumatic, PERRLA, EOMI, Normocephalic Neck: Supple, No JVD, Negative Carotid Bruits Lungs: Clear to auscultation, Diminished Cardiovascular: Regular rate, Regular Rhythm, Normal S1, Normal S2, No murmurs Abdomen: Bowel Sounds Present, Soft, Non Tender, Non-Distended, Obese Extremities: No clubbing, No cyanosis, No edema, Capillary Refill Less than 3 Seconds Skin: No rashes, No breakdown Musculoskeletal: No Tenderness to Palpation of Joints or Extremities Neurological: Cranial nerves II-XII grossly intact, Neuro grossly intact Psych/Mental Status: Normal Affect, Appropriate Patient seen and examined prior to discharge. Physical assessment as noted above. Patient is stable for discharge with follow up recommendations as noted above. This patient was seen by NADEGE Ward under the supervision of Dr. Marie. - Physical Exam Vitals/I&O's: Vital Signs Temp Pulse Resp BP Pulse Ox 98.3 F 78 16 143/83 H 91 10/01/19 08:59 10/01/19 10:39 10/01/19 10:39 10/01/19 08:59 10/01/19 11:45 Oxygen Flow Rate (L/min) [ 2 AMBULATION with Oxygen] Oxygen Flow Rate (L/min) [At 0 REST on Room Air] Oxygen Flow Rate (L/min) 2 Oxygen Delivery Method Room Air Weight: 210 lb 1.608 oz Body Mass Index (BMI) 36.0 Finger Stick Blood Glucose 157 Intake and Output for Last 24 Hours 09/29/19 09/30/19 10/01/19 23:59 23:59 23:59 Intake Total 2028.75 / 2488.75 3397.50 / 3397.50 1112.5 / 1112.5 Output Total 2200 / 2750 1450 / 1450 900 / 900 Balance -171.25 / -261.25 1947.50 / 1947.50 212.5 / 212.5 Microbiology Past 72 Hours 09/25/19 19:05 Blood Culture (Wb) - Left Hand Blood Culture - Final No growth in 5 days. 09/25/19 19:35 Blood Culture (Wb) - Left Wrist Blood Culture - Final No growth in 5 days. 09/29/19 12:45 Wash - Right Lower Lobe Gram Stain - Final 09/27/19 08:58 Sputum, Expectorated/Coughed Gram Stain - Final 09/27/19 08:58 Sputum, Expectorated/Coughed Respiratory Culture - Final Laboratory Results 09/30/19 16:51: POC Glucose 124 H 09/30/19 21:52: POC Glucose 133 H 10/01/19 06:44: POC Glucose 152 H 10/01/19 11:24: POC Glucose 264 H Current Medications Acetaminophen (Tylenol) 650 mg PO Q6H PRN PRN PRN Reason: Non-cardiac pain (4-10/10) Last Admin: 09/27/19 20:01 Dose: 650 mg Documented by: Hydrocodone Bitart/Acetaminophen (Blain 5mg-325mg) 1 - 2 tablet PO Q4H PRN PRN PRN Reason: Pain Score 4-10/10 Last Admin: 10/01/19 10:59 Dose: 2 tablet Documented by: Al Hydroxide/Mg Hydroxide (Mylanta Ii) 15 - 30 ml PO Q4H PRN PRN PRN Reason: INDIGESTION Albuterol Sulfate (Ventolin Aerosols) 2.5 mg INHALATION Q2H PRN PRN PRN Reason: dyspnea, wheezing Albuterol/Ipratropium (Duoneb) 3 ml INHALATION Q4HWA.RT [facility] Last Admin: 10/01/19 10:39 Dose: 3 ml Documented by: Dextrose (D50w Syringe) 0 gm IV X1 PRN; Protocol PRN Reason: Hypoglycemia Diphenhydramine HCl (Benadryl) 25 mg PO DAILY PRN PRN PRN Reason: ALLERGIES Enoxaparin Sodium (Lovenox) 40 mg SC DAILY [facility] Last Admin: 10/01/19 09:05 Dose: 40 mg Documented by: Famotidine (Pepcid) 20 mg PO BID [facility] Last Admin: 10/01/19 09:05 Dose: 20 mg Documented by: Gabapentin (Neurontin) 800 mg PO BID [facility] Last Admin: 10/01/19 09:05 Dose: 800 mg Documented by: Glucagon () 1 mg IM .X1 PRN PRN Reason: Hypoglycemia Guaifenesin (Robitussin) 20 ml PO Q4H PRN PRN PRN Reason: COUGH Last Admin: 09/30/19 21:33 Dose: 20 ml Documented by: Hydralazine HCl (Apresoline Iv) 10 mg IV Q4H PRN PRN PRN Reason: SBP > 160 Sodium Chloride () 1,000 mls @ 75 mls/hr IV .[id number] [facility] Last Infusion: 10/01/19 11:34 Dose: Infused Documented by: Azithromycin 500 mg/ Dextrose 255 mls @ 250 mls/hr IV Q24@2200 [facility] Last Infusion: 10/01/19 00:08 Dose: Infused Documented by: Ceftriaxone Sodium 2 gm/ (Sodium Chloride) 50 mls @ 100 mls/hr IV Q24H [facility] Stop: 10/02/19 22:29 Last Infusion: 09/30/19 22:03 Dose: Infused Documented by: Sodium Chloride () 250 mls @ 15 mls/hr IV .[id number] PRN PRN Reason: Saline Flush Sodium Chloride () 250 mls @ 15 mls/hr IV .[id number] PRN PRN Reason: Additional IVPB Infusion Insulin Human Lispro (Humalog Kwikpen (Bkc)) 0 unit SC TIDAC [facility]; Protocol Last Admin: 10/01/19 11:26 Dose: 3 units Documented by: Magnesium Hydroxide (Milk Of Magnesia) 30 ml PO DAILY PRN PRN Reason: Constipation Melatonin (Melatonin) 3 mg PO QHS PRN PRN PRN Reason: INSOMNIA Metformin [facility] ([facility] Xr) [facility] Last Admin: 10/01/19 09:05 Dose: 500 mg Documented by: Methylprednisolone (Solu-Medrol) 40 mg IV Q8 [facility] Last Admin: 10/01/19 05:09 Dose: 40 mg Documented by: Morphine Sulfate () 1 - 2 mg IV Q4H PRN PRN PRN Reason: Pain Score 1-10/10 Last Admin: 09/30/19 10:22 Dose: 2 mg Documented by: Nicotine Polacrilex (Rugby Nicotine (Bkc)) 2 - 4 mg PO Q2H PRN PRN PRN Reason: Nicotine Craving Nutritional Formula (Lactose Free) (Ensure Clear) 120 ml PO 4X/DAY [facility] Last Admin: 10/01/19 09:06 Dose: 120 ml Documented by: Ondansetron HCl (Zofran) 4 mg IV Q8H PRN PRN PRN Reason: NAUSEA/VOMITING Promethazine HCl (Phenergan) 6.25 mg IV Q4H PRN PRN PRN Reason: NAUSEA/VOMITING Quetiapine Fumarate (Seroquel) 50 mg PO QHS [facility] Last Admin: 09/30/19 21:46 Dose: 50 mg Documented by: Sodium Chloride () 10 - 40 ml IV UD PRN PRN Reason: SALINE FLUSH Last Admin: 10/01/19 05:09 Dose: 10 ml Documented by: Throat Lozenges (Cepacol Sore Throat Lozenge) 1 lozenge MUCOUS MEM Q2H PRN PRN PRN Reason: Sore throat or cough Last Admin: 09/27/19 06:39 Dose: 1 lozenge Documented by: Venlafaxine HCl (Effexor Xr) 75 mg PO DAILY [facility] Last Admin: 10/01/19 09:04 Dose: 75 mg Documented by: Discharge Diet: Low fat/ Low Cholesterol, Carb Control Diet Discharge Activity: Return to Normal Activity Call your doctor if you observe: Fever of 101 or Higher, Shortness of breath Home Medications: Medications to take at Discharge Gabapentin [Neurontin] 800 mg PO BID 09/01/19 Metformin HCl [Glucophage Xr] 500 mg PO DAILY 09/01/19 Quetiapine Fumarate [Seroquel] 50 mg PO QHS 09/01/19 Diphenhydramine HCl [Benadryl Allergy] 25 mg PO DAILY PRN PRN 09/25/19 Ibuprofen 600 mg PO TID #30 tab 09/25/19 Sumatriptan Succinate [Imitrex] 100 mg PO .X1 PRN 09/25/19 Venlafaxine HCl [Venlafaxine HCl ER] 75 mg PO DAILY 09/25/19 Albuterol Aerosols [Ventolin Aerosols] 2.5 mg INHALATION Q2H PRN PRN #120 vial.neb. 10/01/19 Levofloxacin [Levaquin] 750 mg PO DAILY #3 tab 10/01/19 Prednisone See Taper PO DAILY #30 tab 10/01/19 Following Prescrptions Were Given to Patient: Levofloxacin [Levaquin] 750 mg PO DAILY #3 tab Transmission Status: Received by [id number] Prednisone See Taper PO DAILY #30 tab Transmission Status: Received by [id number] Albuterol Aerosols [Ventolin Aerosols] 2.5 mg INHALATION Q2H PRN PRN #120 vial.neb. PRN Reason: Shortness Of Breath Transmission Status: Received by [id number] Primary Care Physician: NOT,DEFINED [NON-STAFF] - Please follow up with your Primary Care Physician in: 1 Week Please Follow Up With: Eddie Irene DO When: within 2 Weeks Disposition: Home with Home Health Minutes spent on discharge:: 35 Patient Condition:: Stable Medical Necessity - Tobacco Use Smoking Status: Current every day smoker Tobacco Use: Cigarettes Meaningful Use Info Meaningful Use Diagnoses (Choose all that apply): None applicable
[2019-10-02 12:33] LABS: Pathologist Comment/Body Fluid Reviewed
--- NOTE | 2019-10-02 12:46 | CASEMGMT ---
RN CM DC CALL: phone not functioning. Little HOODN RN ACM
--- NOTE | 2019-10-04 10:54 | CASEMGMT ---
Addendum entered by Natalia Cerna 10/04/19 11:01: Call received back from Megan Ocasio. She states they were able to reach pt's physicians office,, Dr Andi Londono, @ [facility]. Pt has made an appt with Dr Londono for next . Megan Ocasio states the plan is for [facility] to continue to try and contact pt and follow up with PCP's office after the appt on Wednesday to see if pt still wants HHC and if Dr Londono will follow for HHC orders. Megan Ocasio made aware pt was provided with OP therapy orders prior to her discharge and discharge plan was for pt to go to OP therapy if HHC was not able to be established. Original Note: KELIN REINOSO NOTE: Received phone call from Megan Ocasio @ [facility]. She states they have been unable to reach pt d/t her phone is not accepting calls. She also stated they were able to reach one of pt's daughters on Wednesday who told them she would go to her mother's home and have block removed but Megan Ocasio states pt's phone is still not accepting calls. Megan Ocasio states she is not sure what daughter they spoke with, but that they do have her daughter, Dia's contact number. Provided Megan Ocasio with pt's daughter, Laura, phone number as well. She also states they have not been able to reach or confirm pt's PCP @ [facility]. Megan Ocasio states she will try again today to reach pt, but if unsuccessful, they will not be able to provide HHC services. Svitlana ROMERO RN, CM
== END 2019-10-01 14:58 | disposition home or self-care (01) | DRG 720 ==
LOC: ED 17:02 → PCU 19:00
PROVIDERS: Internal Medicine Critical Care Medicine; Admitting Provider Family Medicine; Emergency Provider Emergency Medicine; Referring Provider Family Medicine; Visit Provider Internal Medicine
PROC: 0BJ08ZZ Inspection of Tracheobronchial Tree, Via Natural or Artificial Opening Endoscopic (ICD-10-PCS; CPT 31622; principal; 2019-09-29 12:15)
DX: A41.9 Sepsis, unspecified organism (principal); J18.9 Pneumonia, unspecified organism; J44.1 Chronic obstructive pulmonary disease with (acute) exacerbation; J44.0 Chronic obstructive pulmonary disease with (acute) lower respiratory infection; F32.9 Major depressive disorder, single episode, unspecified; F41.9 Anxiety disorder, unspecified; E66.9 Obesity, unspecified; R29.6 Repeated falls; F17.210 Nicotine dependence, cigarettes, uncomplicated; J96.01 Acute respiratory failure with hypoxia; Z79.84 Long term (current) use of oral hypoglycemic drugs; Z68.36 Body mass index [BMI] 36.0-36.9, adult; Z79.899 Other long term (current) drug therapy
CPT/HCPCS: 36415; 70450; 71045; 71046; 71250; 80048; 80053; 80320; 81001; 82962; 83605; 83735; 83880; 84484; 85025; 85610; 85730; 87040; 87070; 87077; 87205; 87252; 87449; 87633; 88108; 88305; 88313; 89050; 93005; 94640; 94667; 94668; 97110; 97162; 97166; 97530; 97535; 97802; 99285; J7030; J7050; J7120; A4216; G0480; J0696

== ENCOUNTER → 2019-10-20 11:49 | Outpatient (CLI) | payer MEDICAID, SELFPAY ==
[2019-10-17 09:14] VITALS: BMI 36.0
[2019-10-20 12:36] VITALS: PULSE 100; PULSE 102; PULSE 104; PULSE 105; PULSE 84; PULSE 85; PULSE 92; O2SAT 96; O2SAT 97; O2SAT 98
--- NOTE | 2019-10-20 13:35 | PCM.PSN.6M ---
PSN 6 Minute Walk Test - 6 Minute Walk Test 6 Minute Walk Test: 6 Minute Walk Test PSN:6-Minute Walk Test Start: 10/20/19 12:36 Freq: Status: Active Protocol: RESP.6MINW Document 10/20/19 12:36 ANILA (Rec: 10/20/19 12:38 ANILA [id number]) 6 Minute Walk Test Date Performed 10/20/19 Time Performed 12:00 Height 5 ft 4 in Weight: 90.718 kg Weight in Pounds 200.[address]: Eddie Irene Assistive device used: Walker Pre-test Oxygen Delivery Method Room Air Pulse Ox (%) 98 Pulse Rate (60-100 beats/min) 85 Dyspnea Jatin Scale (0-10) 0.5 Exertion Jatin Scale (6-20) 6 1st minute Oxygen Delivery Method Room Air Pulse Ox (%) 98 Pulse Rate (60-100 beats/min) 92 2nd minute Oxygen Delivery Method Room Air Pulse Ox (%) 98 Pulse Rate (60-100 beats/min) 102 H 3rd minute Oxygen Delivery Method Room Air Pulse Ox (%) 98 Pulse Rate (60-100 beats/min) 102 H 4th minute Oxygen Delivery Method Room Air Pulse Ox (%) 97 Pulse Rate (60-100 beats/min) 105 H 5th minute Oxygen Delivery Method Room Air Pulse Ox (%) 97 Pulse Rate (60-100 beats/min) 104 H 6th minute Oxygen Delivery Method Room Air Pulse Ox (%) 96 Pulse Rate (60-100 beats/min) 100 Dyspnea Jatin Scale (0-10) 5 Exertion Jatin Scale (6-20) 13 Post-test Oxygen Delivery Method Room Air Pulse Ox (%) 98 Pulse Rate (60-100 beats/min) 84 Full Laps Walked 10 Partial Lap, Number of Tiles Walked 15 Total Distance Walked (ft) 605 - Interpretation Interpretation: The patient was able to ambulate 605 feet over the course of 6 minutes on room air with the assistance of a walker and no breaks. Patient experienced no significant desaturation, but did have a peak heart rate of 105 bpm. These findings are consistent with a musculoskeletal limitation exercise tolerance. - Recommendations Recommendations: No supplemental oxygen is indicated at this time.
== END ==
PROVIDERS: PCP Family Medicine; Referring Provider Nurse Practitioner Acute Care; Visit Provider Nurse Practitioner Acute Care
DX: A41.9 Sepsis, unspecified organism (principal); J96.01 Acute respiratory failure with hypoxia; R65.20 Severe sepsis without septic shock
CPT/HCPCS: 94618

== ENCOUNTER → 2020-03-14 09:35 | Outpatient (CLI) | payer MEDICAID, SELFPAY ==
[2020-02-15 10:19] VITALS: BMI 36.0
[2020-02-22 14:17] VITALS: BMI 36.0
--- NOTE | 2020-03-14 09:36 | RAD_ITS ---
STUDY: X-RAY CHEST REASON FOR EXAM: Female, 54 years old. SICK AND OXYGEN AT NIGHT X 6 MONTHS, PAIN WITH BREATHING, NO SX OR INJURY, SMOKER X 39 YEARS TECHNIQUE: Frontal and lateral views of the chest. COMPARISON: 09/29/2019 FINDINGS: The lungs are clear and expanded. There is no demonstrated pleural abnormality. Normal size heart. Normal mediastinum and chas. Normal visualized pulmonary arteries. Normal visualized aortic arch and descending thoracic aorta. Normal visualized thoracic spine. Normal visualized ribs, clavicles, and shoulders. Cholecystectomy clips. RAD/Chest PA and Lateral IMPRESSION: No acute pulmonary findings. Electronically Signed: Moris Angulo MD at 17:35 EDT Tel , Service support ,
--- NOTE | 2020-03-14 13:13 | PFT ---
INTRODUCTION: The patient is a 54-year-old female that presents for pulmonary function studies secondary to a diagnosis of tobacco dependency. Respiratory therapy reports good patient effort. Bronchodilators were used during testing. INTERPRETATION: Forced expiration spirometry demonstrates no evidence of a large airways obstructive ventilatory defect. There was no significant response to aerosolized bronchodilators. Spirograms are of good quality and plateau normally. Body plethysmography was performed and reveals a decreased TLC to 3.71 L, 75% of predicted, indicative of a mild restrictive ventilatory impairment. The remainder of the lung volumes are symmetrically reduced. Diffusing capacity by single breath CO is reduced at 47% of predicted. IMPRESSION: Isolated mild restrictive ventilatory impairment with disproportionate reduction in diffusing capacity.
== END ==
PROVIDERS: PCP Internal Medicine; Referring Provider Internal Medicine Critical Care Medicine; Visit Provider Internal Medicine Critical Care Medicine
DX: R05 Cough (principal); F17.210 Nicotine dependence, cigarettes, uncomplicated
CPT/HCPCS: 71046; 94060; 94726; 94729

== ENCOUNTER 2020-03-17 18:10 | Emergency (ER) | payer MEDICAID, SELFPAY ==
[2020-02-22 14:17] VITALS: BMI 36.0
[2020-03-17 18:11] VITALS: BP 151/89; PULSE 112; RESP 18; TEMP 35.7; O2SAT 97; BMI 39.4
[2020-03-17] MEDS: DiphenhydrAMINE 50 MG/ML Syringe IV (18:32)
[2020-03-17] MEDS: Metoclopramide 10 MG/2 ML Vial IV (18:32)
[2020-03-17] MEDS: Ketorolac 30 MG/ML Syringe IV (18:33)
[2020-03-17] MEDS: 0.9% Normal Saline 1,000 ML 999 ML IV (18:33)
--- NOTE | 2020-03-17 18:43 | ED.VISSUMM ---
- ER Visit Summary Date of Service: 03/17/20 Chief Complaint: Headache History of Present Illness: The patient is a [address] Bartholomew. She reports that she has frequent migraines since having 3 benign brain tumors removed in 2013. States that she gets a prescription for Imitrex each month, but only has 12 pills. She typically runs out early. States that she ran out 2 days ago. She cannot get a refill for a week. She reports that she has a headache on the right parietal area that began yesterday. Is gradually gotten worse. Says sharp, throbbing pain that is typical of her prior headaches. She reports her last headache like this was 1 week ago. States is 10 out of 10 in severity. She is a reports is worsened by light and sound. She taken Tylenol and ibuprofen without relief. She is been nausea and vomited twice. She denies any change in her vision. She does have photophobia. Physical Examination: Vitals: Stable. Afebrile. General: Well-nourished and well-developed. Head: Normocephalic atraumatic. Neck: Supple, no lymphadenopathy. No JVD. Nontender. Cardiovascular: Regular rate and rhythm. No murmurs. Respiratory: No respiratory distress. Clear to auscultation bilaterally. Abdominal: Soft, nontender, nondistended, normal bowel sounds. No guarding, rebound, or peritoneal signs. Back: Nontender. Extremities: Nontender, no edema. Skin: Normal color, no rash. Neurologic: Alert and oriented ?3. Cranial nerves II through XII are intact. Normal strength and sensation. Psych: Normal affect. Emergency Department Course and Treatment: Patient had an IV placed. She was given Toradol, Benadryl, and Reglan IV with significant relief. She is resting comfortably. Treatment Plan: Patient be discharged prescription for Reglan. Instructed to follow-up her primary care physician 1 to 2 days if not improving. Return to the emergency department for any worsening symptoms. Disposition: To home in improved and stable condition. Impression: 1. Recurrent headache. This note was generated with [employer] software. It may contain incorrect words, spelling, and punctuation that were not noted in review of the chart prior to signing ED Disposition - Plan for ED Patient: Instructions: ED, Migraine (Classical) Prescriptions: Metoclopramide [Reglan] 10 mg PO 4X/DAY PRN #20 tablet PRN Reason: Headache Referrals: Yassine Bartholomew MD [Primary Care Provider] - 1-2 Days if not improving
[2020-03-17 19:23] VITALS: BP 153/97; RESP 20
== END 2020-03-17 19:24 | disposition home or self-care (01) ==
LOC: ED 19:03
PROVIDERS: Emergency Provider Emergency Medicine; PCP Internal Medicine
DX: G43.909 Migraine, unspecified, not intractable, without status migrainosus (principal); J44.9 Chronic obstructive pulmonary disease, unspecified; E11.9 Type 2 diabetes mellitus without complications; Z79.84 Long term (current) use of oral hypoglycemic drugs; Z79.899 Other long term (current) drug therapy; F17.200 Nicotine dependence, unspecified, uncomplicated
CPT/HCPCS: 96361; 96374; 96375; 99283; J7030; A4216

== ENCOUNTER → 2020-03-20 15:26 | Outpatient (CLI) | payer MEDICAID, SELFPAY ==
[2020-03-20 15:03] VITALS: BMI 39.4
[2020-03-20 17:10] LABS: Absolute Lymphocyte Count 3.01 X10^3/uL (0.83-4.51); Absolute Neutrophil Count 9.5 X10^3/uL (2.0-7.7); Basophil# 0.07 X10^3/uL; Basophil% 0.5 % (0-1); Eosinophil# 0.06 X10^3/uL; Eosinophils% 0.4 % (0-5); Hematocrit 44.6 % (37-47); Hemoglobin 15.1 g/dL (12.0-15.0); Lymphocyte # 3.01 X10^3/ul (4.0); Lymphocyte % 22.5 % (19-41); Mean Corp Hgb Conc 33.9 g/dL (32-36); Mean Corpuscular Volume 94.5 fL (81-99); Mean Platelet Vol. 11.7 fl (6.2-12.0); Monocyte# 0.72 X10^3/uL; Monocyte% 5.4 % (0-10); NRBC Flagged by Analyzer 0 % (0-5); Neutrophil # 9.47 X10^3/uL (2.7-7.7); Neutrophil % 70.8 % (47-70); Platelet Count 218 K/mm3 (150-450); RBC Distribution Width CV 12.7 % (11.6-14.6); RBC Distribution Width SD 43.6 fl (35.1-43.9); Red Blood Count 4.72 M/mm3 (4.2-5.4); White Blood Count 13.4 K/mm3 (4.4-11.0)
[2020-03-20 17:25] LABS: AST(SGOT) 24 U/L (15-37); Alanine Aminotransfer ALT/SGPT 32 U/L (13-56); Albumin, Serum 3.8 g/dL (3.2-5.0); Alkaline Phosphatase 92 U/L (45-117); Anion Gap 9 (5-15); BUN 7 mg/dL (7-18); Calcium,Total 9.2 mg/dL (8.5-10.1); Chloride 104 mmol/L (98-107); Creatinine, Serum 0.87 mg/dL (0.55-1.02); EST Glomerular Filtration Rate 72 mL/min (>60); Est Glom Filt Rate - Afr Amer 87 mL/min (>60); Glucose 149 mg/dL (74-106); Potassium 3.9 mmol/L (3.5-5.1); Protein, Total 7.8 g/dL (6.4-8.2); Sodium Level 139 mmol/L (136-145); T4 Free Direct 1.01 ng/dL (0.76-1.46); Thyroid Stim Hormone (TSH) 1.53 uIU/mL (0.358-3.74)
[2020-03-20 17:26] LABS: Hemoglobin A1c 5.8 % (3.8-5.6)
== END ==
PROVIDERS: PCP Internal Medicine; Referring Provider Internal Medicine; Visit Provider Internal Medicine
DX: I10 Essential (primary) hypertension (principal); E11.9 Type 2 diabetes mellitus without complications
CPT/HCPCS: 36415; 80053; 83036; 84439; 84443; 85025

== ENCOUNTER → 2020-04-10 08:22 | Outpatient (CLI) | payer MEDICAID, SELFPAY ==
[2020-03-20 15:03] VITALS: BMI 39.4
[2020-04-10 07:25] VITALS: BMI 39.4
--- NOTE | 2020-04-10 08:41 | RAD_ITS ---
STUDY: X-RAY - RIGHT SHOULDER REASON FOR EXAM: Female, 54 years old. BILATERAL SHOULDER PAIN, DIFFICULTY RAISING ARMS OVER HEAD, PAIN ON TOP TECHNIQUE: 4 view(s) of the shoulder. COMPARISON: None. FINDINGS: There is mild degenerative arthrosis of the glenohumeral articulation. Minimal degenerative changes of the acromioclavicular joint. There is a flat undersurface of the acromion consistent with a Type I morphology. Mild degenerative changes of the greater tubercle. The soft tissue structures are unremarkable. Normal visualized pulmonary apex. RAD/Shoulder min 2 Views IMPRESSION: Negative for fracture, dislocation, osteolytic or blastic bone lesion. Mild degenerative changes of the glenohumeral joint and greater tubercle. Minimal degenerative change of the acromioclavicular joint. Electronically Signed: Velia Wallace MD at 17:00 EDT , Service support ,
--- NOTE | 2020-04-10 08:41 | ECHOD_ITS ---
Reason For Study: DYSPNEA Left Ventricle Normal LV size. Left ventricular systolic function is normal. The estimated ejection fraction is 65 %. Normal diastology for age. No regional wall motion abnormalities noted. Right Ventricle Normal RV size. Normal systolic function. Atria Normal left atrium. Normal right atrium. Mitral Valve Normal mitral valve. Tricuspid Valve Normal tricuspid valve. Mild tricuspid valve insufficiency. Pulmonary artery systolic pressure is 30 mmHg. Aortic Valve Normal aortic valve. Trisinus/trileaflet aortic valve. Pulmonic Valve Normal pulmonic valve. Great Vessels Normal aortic root. The pulmonary artery is normal size. Normal inferior vena cava. Pericardium/Pleural No pericardial effusion. MMode/2D Measurements & Calculations LVIDd: 4.3 cm IVSd: 1.1 cm Ao root diam: 3.7 cm LVIDs: 2.4 cm LVPWd: 1.2 cm FS: 44.6 % LAV(MOD-bp): 51.1 ml LA A4 area: 15.9 cm2 LA dimension(2D): 3.2 cm LAV(MOD-bp) Indexed: 25.1 ml/m2 LAV(MOD-sp2): 65.4 ml LAV(MOD-sp4): 38.0 ml RA A4 area: 11.7 cm2 Time Measurements MV dec time: 0.14 sec Doppler Measurements & Calculations MV E max hieu: 102.2 cm/sec Lat Peak E' Hieu: 10.7 cm/sec Med Peak E' Hieu: 4.8 cm/sec MV A max hieu: 79.1 cm/sec E/E' lat: 9.5 E/E' med: 21.1 MV E/A: 1.3 PA V2 max: 60.7 cm/sec TR max hieu: 256.1 cm/sec TR max P.2 mmHg Interpretation Summary Normal LV size. Left ventricular systolic function is normal. The estimated ejection fraction is 65 %. Normal diastology for age. Pulmonary artery systolic pressure is 30 mmHg. Ordering Physician: Nora Suárez Referring Physician: Yassine Bartholomew Performed By: Florence DISLA RVT, Carrie and Student
--- NOTE | 2020-04-10 08:45 | RAD_ITS ---
STUDY: X-RAY - LEFT SHOULDER REASON FOR EXAM: Female, 54 years old. BILATERAL SHOULDER PAIN, DIFFICULTY RAISING ARMS OVER HEAD, PAIN ON TOP TECHNIQUE: 4 view(s) of the shoulder. COMPARISON: None. FINDINGS: Minimal degenerative changes of the glenohumeral joint. Normal acromioclavicular joint. Normal acromion. Normal humeral head and visualized proximal humerus. The soft tissue structures are unremarkable. Normal visualized pulmonary apex. RAD/Shoulder min 2 Views IMPRESSION: Negative for fracture, dislocation, osteolytic or blastic bone lesion. Minimal degenerative changes of the glenohumeral joint. Electronically Signed: Velia Wallace MD at 17:01 EDT , Service support ,
[2020-04-13 03:37] LABS: Alternaria alternata <0.10 kU/L (Class 0); Bermuda Grass 0.15 kU/L (Class 0/I); Bluegrass, Kentucky 0.13 kU/L (Class 0/I); Cat Hair/Dander, Standard <0.10 kU/L (Class 0); D farinae Mite <0.10 kU/L (Class 0); D pteronyssinus <0.10 kU/L (Class 0); Dog Epithelia <0.10 kU/L (Class 0); Elm, American White 0.13 kU/L (Class 0/I); Oak, White 0.16 kU/L (Class 0/I); Plantain, English 0.15 kU/L (Class 0/I); Ragweed, Short/Common 0.16 kU/L (Class 0/I)
[2020-04-13 12:15] LABS: Mouse Urine <0.10 kU/L (Class 0)
[2020-04-13 16:07] LABS: Aspirgillus flavus Negative (Neg:<1:1); Aspirgillus fumigatus Negative (Neg:<1:1); Aspirgillus niger Negative (Neg:<1:1)
[2020-04-13 16:27] LABS: Immunoglobulin E 28 IU/mL (6-495)
== END ==
PROVIDERS: PCP Internal Medicine; Referring Provider Nurse Practitioner Acute Care; Visit Provider Nurse Practitioner Acute Care
DX: J45.909 Unspecified asthma, uncomplicated (principal); M25.511 Pain in right shoulder; M25.512 Pain in left shoulder
CPT/HCPCS: 36415; 73030; 82785; 86003; 86606; 93306

== ENCOUNTER 2020-04-12 14:31 | Emergency (ER) | payer MEDICAID, SELFPAY ==
[2020-04-10 07:25] VITALS: BMI 39.4
[2020-04-12 14:32] VITALS: BP 136/118; PULSE 102; RESP 18; TEMP 36.6; O2SAT 98; BMI 38.9
--- NOTE | 2020-04-12 14:44 | ED.VIS.GEN ---
History of Present Illness Chief Complaint: Back Informant: Patient Narrative: Patient is a 54-year-old female who presents to the emergency department for nontraumatic left-sided back pain. This started 2 days ago and has been progressively been getting worse. She currently rates the pain as severe. It is a sharp pain. It does not radiate. She has had similar pains before in the past but they have been lower before. She states that she got up out of bed and walk to the bathroom 2 days ago when the pain initially started. She is been taking Tylenol and ibuprofen which have not been giving her significant relief. She denies any blood in her urine. No history of kidney stones. She has not had any fevers or chills. Denies any radiation down her legs. No saddle anesthesia. She denies any history of IV drug abuse. She is on gabapentin as well which has not been helping. She has not had any urinary/bowel incontinence/retention. She denies any chest pain or shortness of breath. No abdominal pain. No nausea/vomiting. She is a current everyday smoker. Past Medical History - Allergies and Home Meds Allergies/Adverse Reactions: Allergies No Known Allergies Allergy (Verified 04/12/20 14:33) Primary Care Physician: Yassine Bartholomew MD [Primary Care Provider] - 2 Days Prior records reviewed: Yes Past Medical History: - - Hypertension, bipolar, asthma Surgical History: - - Brain surgery as noted x3, hysterectomy, bilateral carpal tunnel surgery, left upper extremity elbow surgery, tonsillectomy, umbilical hernia repair, cholecystectomy, appendectomy. Smoking Status: Current every day smoker Alcohol: None Drugs: None - Family History Maternal Family History: Family History (Last Reviewed 03/21/20 @ 08:36 by Ebony Mason) Unknown Asthma Anxiety Arthritis H/O blood clots Diabetes Myocardial infarction Depression Heart disease Hypertension Family History: Reports: - - Patient has a paternal family history of heart disease, CHF. Paternal Family History: Family History (Last Reviewed 03/21/20 @ 08:36 by Ebony Mason) Unknown Asthma Anxiety Arthritis H/O blood clots Diabetes Myocardial infarction Depression Heart disease Hypertension Family History: Reports: - - Patient notes a paternal family history of diabetes, heart disease, coronary disease. Review of Systems All systems negative except as indicated General: Denies: Chills, Fever, Sweats Eyes: Denies: Visual changes - bilaterally, Diplopia ENT: Denies: Rhinorrhea, Sore throat Cardiovascular: Denies: Chest pain, Palpitations Respiratory: Denies: Dyspnea, Cough, Dyspnea on exertion Gastrointestinal: Denies: Abdominal pain, Nausea, Vomiting, Diarrhea, Melena, Hematochezia Genitourinary: Denies: Dysuria, Hematuria, Frequency Musculoskeletal: Reports: Back pain. Denies: Extremity Pain Skin: Denies: Rash, Wounds Neurological: Denies: Headache, Weakness, Numbness Physical Exam Vital Signs/Narrative: Vital Signs Temp Pulse Resp BP Pulse Ox 04/12/20 14:32 97.8 F 102 H 18 136/118 H 98 Inital Vital Signs reviewed: Yes General: Well nourished, Well developed, No Acute Distress Head: Normocephalic, Atraumatic Eyes: Perrl, EOMI ENT: Moist mucous membranes, No rhinorrhea Neck: Supple, Nontender Cardiovascular: Regular rate, Regular rhythm, No murmurs Respiratory: No distress, CTA bilaterally, Chest nontender Abdomen: Soft, Nontender, Nondistended, Normal bowel sounds Back: Normal Inspection, - - Patient has tenderness along the left paraspinal musculature. There is some tight muscle spasm present. No overlying skin changes.. Negative for: Spinal tenderness Extremities: Nontender, No edema, - - Negative straight leg test bilaterally. Neurovascular intact of lower and upper extremities. Skin: Normal color, No rash Neurological: Alert, Oriented x3, Cranial nerves II-XII grossly intact, Normal Strength, Normal Sensation Psychological: Normal affect, Normal Mood Diagnostic/Tx/Re-eval - Medical Decision Making Patient presents to the emergency department for nontraumatic mid back pain. This does seem musculoskeletal as it is reproducible on palpation. It hurts worse with movements. Aortic dissection considered but highly unlikely. Will trial anti-inflammatories. Since this is nontraumatic and non-midline will hold off on imaging at this time. Patient given a dose of Toradol which did not relieve her symptoms. She was then given a [place]. She is feeling much better after this treatment. Able to ambulate around the emerge part without any difficulty. Will write a prescription for muscle relaxer. She can continue to take ibuprofen and Tylenol at home. She is to follow-up with her PCP. Warning signs and symptoms for which to return to the emergency department were reviewed with her. She understands and is agreeable with this plan. Will discharge home in stable condition. ED Disposition - Plan for ED Patient: Disposition: Home or Assisted Living Diagnosis: Back pain Instructions: ED Spasm Back No Trauma Prescriptions: Baclofen 10 mg PO TID PRN PRN 3 Days #9 tab PRN Reason: Pain Or Fever Transmission Status: Received by [id number] Referrals: Yassine Bartholomew MD [Primary Care Provider] - 2 Days
[2020-04-12] MEDS: Ketorolac 30 MG/ML Syringe IM (14:51)
[2020-04-12] MEDS: HYDROcodone Bitartrate/Apap 5/325 Tablet PO (16:10)
== END 2020-04-12 16:40 | disposition home or self-care (01) ==
PROVIDERS: Emergency Provider Emergency Medicine; PCP Internal Medicine
DX: M54.9 Dorsalgia, unspecified (principal); M62.830 Muscle spasm of back; I10 Essential (primary) hypertension; J45.909 Unspecified asthma, uncomplicated; F31.9 Bipolar disorder, unspecified; F17.200 Nicotine dependence, unspecified, uncomplicated; Z82.49 Family history of ischemic heart disease and other diseases of the circulatory system; Z83.3 Family history of diabetes mellitus; Z90.49 Acquired absence of other specified parts of digestive tract; Z90.710 Acquired absence of both cervix and uterus
CPT/HCPCS: 96372; 99283